=== PATIENT | male | born 1950 | race Caucasian/White ===

== ENCOUNTER 2017-03-04 06:19 | Inpatient (IN) | payer OTHER, MEDICAID ==
--- NOTE | 2017-03-04 06:34 | EDPHY ---
H & P HPI/ROS: HPI CHIEF COMPLAINT: Shortness of breath, generalized weakness HISTORY OF PRESENT ILLNESS: This patient is 66-year-old male, presents emergency room by EMS for shortness of breath. The patient resides at [facility]. 911 was called from them as he has had progressively shortness of breath over the last 2 days. Patient arrives on a non-rebreather mask with tachypnea, and respiratory distress. He had 80s O2 sat at 10 L on a mask. He has been placed on a 15 L mask at this time. He was initially ER room 5. I have moved him to ER room 2 to be placed on full face BiPAP on full monitor. Upon arrival it is noted that the patient is tachypneic in the 30s. Past Medical History: Schizophrenia, hypertension, hyponatremia, hypokalemia, GERD, polydipsia Past Surgical History: No surgical history. Social History: Resides at [facility]. Family History: Noncontributory. ROS REVIEW OF SYSTEMS: A comprehensive 10 point review of systems is otherwise negative aside from elements mentioned in the history of present illness. Exam Constitutional respiratory distress, tachypneic, triage nursing summary reviewed, vital signs reviewed, awake/alert. Eyes normal conjunctivae and sclera, EOMI, PERRLA. HENT normal inspection, atraumatic, moist mucus membranes, no epistaxis, neck supple/ no meningismus, no raccoon eyes. Respiratory decreased breath sounds bilaterally. Little air movement. Slight wheezing. Cardiovascular rate normal, regular rhythm, no murmur, no edema, distal pulses normal. Gastrointestinal soft, non-tender, no rebound, no guarding, normal bowel sounds, no distension, no pulsatile mass. Genitourinary no CVA tenderness. Musculoskeletal bilateral lower extremity edema with redness, no midline vertebral tenderness, full range of motion, no calf swelling, no tenderness of extremities, no meningismus, good pulses, neurovascularly intact. Skin pink, warm, & dry, no rash, skin atraumatic. Neurologic awake, alert and oriented x 3, AAOx3, moves all 4 extremities equally, motor intact, sensory intact, CN II-XII intact, normal cerebellar, normal vision, normal speech. Psychiatric normal mood/affect. Heme/Lymph/Immune no lymphadenopathy. 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 Re-evaluate. Re-evaluation: EKG interpretation by me on record in [employer] system. Impression time of EKG 6:54 a.m., sinus rhythm rate of 61. Nonspecific intraventricular conduction delay. No ST elevation. ED x-ray chest one view this is reviewed by myself. This shows cardiomegaly and bilateral pulmonary edema. Pleural effusion left side. 0656: At this time this patient is on full face BiPAP is getting in-line DuoNeb breathing. His vital signs are stable. I have ordered him IV Lasix. I do feel that the patient is volume overloaded with decompensated heart failure. 0700: Spoke with the hospitalist service Dr. Parr agrees to admit this patient. I have ordered this patient 40 mg IV Lasix. Patient remains on full face BiPAP more comfortable. Vital signs are stable. Chest x-ray reviewed shows cardiomegaly. Additionally he does have an acute kidney injury with elevated creatinine and BUN. I do not feel that he is hypovolemic he appears volume overloaded with peripheral all lower extremity pitting edema and pulmonary edema on x-ray. Critical Care: Total Critical Care Time Spent Managing this Patient: 65Minutes. This time was spent Exclusively with this patient. This Care was exclusive of procedures. The Organ System/life at risk was pulmonary This Patient was in Critical Condition because decompensated heart failure. Patient minute to the ICU for decompensated heart failure hypoxia. Source: Patient, EMS Constitutional: Initial Vital Signs O2 Sat (%) 93 03/04/17 06:28 O2 Delivery Mode Non-Rebreather Mask O2 (L/minute) 15 Allergies/Adverse Reactions: No Known Allergies Allergy (Unverified 08/12/09 14:51) Home Medications: Medication Instructions Recorded Diltiazem HCl [Taztia Xt] 360 mg PO DAILY 08/12/09 ARIPIPRAZOLE [Abilify 20mg] 20 mg PO DAILY 03/04/17 Acetaminophen [Tylenol 325mg (*)] 650 mg PO Q6H PRN 03/04/17 Ascorbic Acid [Vitamin C 500 mg 500 mg PO DAILY 03/04/17 (*)] Bisacodyl [Dulcolax] 10 mg RC DAILY PRN 03/04/17 Fluticasone Nasal [Flonase Nasal 1 sprays NASAL DAILY 03/04/17 Frederick (RX)] Furosemide [Lasix 40 MG (*)] 40 mg PO DAILY 03/04/17 Magnesium Hydroxide/Al Hydrox 20 ml PO Q4H PRN 03/04/17 [Mylanta Liquid] Metoprolol Succinate Xr [Toprol Xl 25 mg PO DAILY 03/04/17 25 mg (*)] Multivitamins [Multivitamin (*)] 1 each PO DAILY 03/04/17 Perphenazine [Trilafon 8mg (*)] 8 mg PO BID 03/04/17 Polyethylene Glycol 3350 [Miralax 17 gm PO DAILY 03/04/17 17 gm (*)] Potassium Chloride [Klor-Con M20] 20 meq PO DAILY 03/04/17 Sennosides/Docusate Sodium 2 each PO BID 03/04/17 [Senokot-S (OTC)] Sodium Chloride [Saline Nose Frederick] 1 spray NS Q4H PRN 03/04/17 Tamsulosin HCl [Flomax 0.4 MG (*)] 0.4 mg PO DAILY 03/04/17 clonIDINE [Catapres (*)] 0.2 mg PO BID 03/04/17 traMADol [Ultram 50 mg (*)] 50 mg PO QID 03/04/17 Medical Decision Making - Data Points Laboratory Results: Laboratory Results 03/04/17 06:00 03/04/17 06:00 Medications Given: Acetaminophen (Tylenol) 650 mg PO Q4HRS PRN PRN Reason: Pain, Mild/Fever, Can Take PO Stop: 08/31/17 07:59 Last Admin: 03/04/17 18:34 Dose: 650 mg Aripiprazole (Abilify) 20 mg PO DAILY JENNIE Stop: 08/31/17 13:29 Last Admin: 03/04/17 13:42 Dose: 20 mg Clonidine (Catapres) 0.2 mg PO BID JENNIE Stop: 08/31/17 13:44 Last Admin: 03/04/17 15:15 Dose: 0.2 mg Diltiazem HCl (Cardizem Er Q24hr) 360 mg PO DAILY JENNIE Stop: 08/31/17 13:44 Last Admin: 03/04/17 13:56 Dose: 360 mg Furosemide (Lasix Injection) 40 mg IVP BID@0900,1500 [facility] Stop: 08/31/17 14:59 Last Admin: 03/04/17 15:14 Dose: 40 mg Heparin Sodium (Porcine) (Heparin Sc Injection) 5,000 unit SC Q8 JENNIE Stop: 08/31/17 13:59 Last Admin: 03/04/17 15:14 Dose: 5,000 unit Azithromycin 500 mg/ Dextrose 255 mls @ 255 mls/hr IV DAILY JENNIE PRN Reason: Protocol Stop: 04/03/17 10:59 Last Admin: 03/04/17 11:00 Dose: 255 mls Metoprolol Succinate (Toprol Xl) 25 mg PO DAILY JENNIE Stop: 08/31/17 13:44 Last Admin: 03/04/17 13:56 Dose: 25 mg Perphenazine (Trilafon) 8 mg PO BID JENNIE Stop: 08/31/17 20:59 Last Admin: 03/04/17 19:38 Dose: 8 mg Senna/Docusate Sodium (Senokot-S) 2 tab PO BID JENNIE Stop: 08/31/17 20:59 Last Admin: 03/04/17 22:18 Dose: Not Given Tramadol HCl (Ultram) 50 mg PO QID JENNIE Stop: 08/31/17 15:59 Last Admin: 03/04/17 16:27 Dose: 50 mg Discontinued Medications Albuterol/Ipratropium (Duoneb) 3 ml IH EDNOW ONE Stop: 03/04/17 06:36 Last Admin: 03/04/17 06:39 Dose: 3 ml Furosemide (Lasix Injection) 40 mg IVP EDNOW ONE Stop: 03/04/17 06:55 Last Admin: 03/04/17 06:57 Dose: 40 mg Furosemide (Lasix Injection) 40 mg IVP ONCE ONE Stop: 03/04/17 09:01 Last Admin: 03/04/17 09:34 Dose: 40 mg Cefepime HCl 2 gm/ Dextrose 100 mls @ 200 mls/hr IV Q8H JENNIE PRN Reason: Protocol Stop: 04/03/17 09:59 Last Admin: 03/04/17 09:59 Dose: 100 mls Vancomycin/Sodium Chloride (Vancomycin 1 Gm (Premix)) 250 mls @ 250 mls/hr IV ONCE ONE PRN Reason: Protocol Stop: 03/04/17 16:25 Last Admin: 03/04/17 16:26 Dose: 250 mls Departure - Departure Disposition: [facility] Inpatient Acute Clinical Impression: Respiratory distress, Hypoxia CHF (congestive heart failure) Qualifiers: Congestive heart failure type: unspecified congestive heart failure type Congestive heart failure chronicity: acute Qualified Code(s): I50.9 - Heart failure, unspecified Condition: Critical
[2017-03-04 06:35] LABS: PLATELET COUNT 207 10^3/uL (150-400)
[2017-03-04] MEDS ORDERED: IPRATROPIUM/ALBUTEROL 3 ML DEYVIAL IH ONE (06:35)
[2017-03-04 06:52] LABS: INR 0.97 (0.83-1.16); PROTIME(PATIENT) 13.1 SEC (12.0-15.0)
[2017-03-04] MEDS ORDERED: FUROSEMIDE 40 MG/4 ML VIAL IVP ONE ×2 (06:54→09:00)
[2017-03-04] MEDS ORDERED: ONDANSETRON 4 MG/2 ML VIAL IVP PRN (08:00)
--- NOTE | 2017-03-04 09:27 | CPEKG ---
Heart Rate: 61 RR Interval: 984 P-R Interval: 148 QRSD Interval: 114 QT Interval: 432 QTC Interval: 435 P Hartland: 61 QRS Hartland: 69 T Wave Hartland: 4 EKG Severity - ABNORMAL ECG - EKG Impression: SINUS RHYTHM EKG Impression: NONSPECIFIC INTRAVENTRICULAR CONDUCTION DELAY EKG Impression: BORDERLINE INFERIOR Q WAVES Electronically Signed By: Nicky Bonilla 04-Mar-2017 22:50:05
--- NOTE | 2017-03-04 09:40 | GCON ---
[f rep st] CONSULTATION [facility] MAGISTRATE CONSULTATION REASON FOR ADMISSION: Acute respiratory failure and likely congestive heart failure. HISTORY OF PRESENT ILLNESS: The patient is a 66-year-old white male with a past medical history of s chizophrenia, hypertension, gastroesophageal reflux disease, depression, anxiety, hyponatremia, hypok alemia. The patient resides at [facility]. He apparently over the last 48 hours had increasing kendra thlessness. He was brought to the emergency room, was markedly hypoxemic. Was placed on supplementa l oxygen at 15 L. He was subsequently started on BiPAP. He was eventually admitted to the intensive care unit. The patient is currently on BiPAP, unable to provide any history. The patient was admit cherise to the intensive care unit. Currently, he is resting comfortably on BiPAP. He states that his b reathlessness has improved. There was no chest pain, pleuritic-type chest pain, or angina equivalent . He denies any fever or night sweats. PAST MEDICAL HISTORY: Again, significant for schizophrenia, hypertension, hyponatremia, gastroesopha geal reflux disease, polydipsia. ALLERGIES: No known allergies to medications. SOCIAL HISTORY: No history of tobacco use. No history of alcohol use. Again, he resides at [facility]. FAMILY HISTORY: Noncontributory. HOME MEDICATIONS: Abilify, Ativan, diltiazem, Colace, Haldol, lisinopril, Percocet, and Trilafon. PHYSICAL EXAMINATION: VITAL SIGNS: Blood pressure is 138/59. The pulse is 82, respirations 16. Te mperature is 36.6, oxygen saturation 96% on BiPAP at 70%. GENERAL: He is a moderately overweight, e lderly white male who is resting comfortably on BiPAP. HEENT: Eyes are PERRLA, EOMI. Throat exam i s deferred. NECK: Supple. There is no cervical adenopathy. HEART: Regular rate and rhythm with a 2/6 systolic murmur at the left sternal border without radiation. LUNGS: Show diminished breath harvey nds with bibasilar crackles. There is no wheeze. ABDOMEN: Soft. Nontender. Bowel sounds are pres ent. EXTREMITIES: Show significant lower extremity edema with ulcers present. LABORATORY DATA: White count is 12.4, hemoglobin 12, hematocrit 37, platelet count 207. INR is 0.97 . Sodium 133, potassium 5.2, chloride 103. CO2 is 20. BUN is 48. Creatinine is 2.2. Glucose is 1 10. Troponin is negative. BNP is elevated at 1640. TSH is high at 5.8. Urinalysis: PH of 6, spec ific gravity 1.010, positive nitrite, 3+ leukocyte esterase, 4+ bacteria. Arterial blood gas: PH is 7.27, pCO2 43, PO2 75, bicarb of 21, oxygen saturation 93%. This is on BiPAP at 60%. IMPRESSION: 1. Congestive heart failure with fluid overload. 2. Acute respiratory failure secondary to above. 3. Possible pneumonia. 4. Combined metabolic and mild respiratory acidosis. 5. Possible sepsis. 6. Acute renal failure. 7. Possible urinary tract infection. RECOMMENDATIONS: 1. Agree with admission to the intensive care unit. 2. Will continue BiPAP for now. 3. Will recheck an ABG. 4. Will start sepsis protocol. 5. Will treat for possible pneumonia. 6. Aggressive diuresis. 7. Will check an echocardiogram. 8. Will obtain blood cultures and sputum culture. 9. Will check a urine culture. 10. Will establish code status. /[id number]/MODL
[2017-03-04] MEDS ORDERED: CEFEPIME HCL 2 GM in D5W 100 ML IV SCH ×3 (10:00→21:00)
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
[2017-03-04] MEDS ORDERED: AZITHROMYCIN IV 500 MG in D5W 250 ML IV SCH (11:00)
[2017-03-04] MEDS: AZITHROMYCIN IV 500 MG in D5W 250 ML IV SCH (11:00)
--- NOTE | 2017-03-04 12:22 | WOCRNPDOC ---
WOCRAlfred Advanced Assessment Note - Skin Integrity Problem, Advanced Assess Left Anterior Lower Leg Venous Stasis Ulcer Dressing Type: Open to Air Exudate Amount: None Sofia Wound Tissue: Hemosiderin Staining, Venous Dermatitis, Xerotic, Scarred Wound Bed Constitution: Red/[place] - Non Granular Tissue Wound Edges: Well Defined Site Odor: None Site Measurement - Head-to-Toe Length X Width X Depth (cm): 2x3x0.1 Skin Integrity Problem Comment: May have originated from a traumatic injury but there is venous stasis changes to patient's bilateral legs. Treatment of the wound will be the same at this time. Wound is not draining much. Atractain cream will benefit patient. Wound care will sign off. Left Thigh Dressing Type: Open to Air Wound Bed Constitution: Scab Wound Edges: Epithelizing Site Measurement - Head-to-Toe Length X Width X Depth (cm): 0.6x0.6xscab/eschar Skin Integrity Problem Comment: Old wound with signs of epithelization up to central eschar. Unknown etiology. Will moisten with wound gel and treat as an open wound. Right Thigh Dressing Type: Open to Air Site Measurement - Head-to-Toe Length X Width X Depth (cm): 0.4x0.4xscab Skin Integrity Problem Comment: Old wound with signs of epithelization up to central scab. Unknown etiology. Will moisten with wound gel and treat as an open wound. Pannus Dressing Type: Open to Air Skin Integrity Problem Comment: Moisture associated dermatitis. Treat with Calazime. Diamante LÓPEZ in room for assessment. Plan of care discussed.
[2017-03-04] MEDS ORDERED: SODIUM CL NASAL 45 ML BTL NS PRN (13:09)
[2017-03-04] MEDS ORDERED: ARIPIPRAZOLE 20 MG PO SCH (13:15)
--- NOTE | 2017-03-04 13:29 | ECHO ---
[email or web address] [address] Main: [phone] Fax: Transthoracic Echocardiogram Name: BRANDI YOUNG MR#: [id number] Study Date: 03/04/2017 Study Time: 10:58 AM Date of : 1950 Age: 66 year(s) Height: 177.8 cm (70 in.) Weight: 99.79 kg (220 lb.) BSA: 2.17 m2 Gender: Male Examination: Echo Indication: CHF Image Quality: Adequate Contrast: Requested by: Jeremiah Horan BP: 155 mmHg/49 mmHg Heart Rate: Rhythm: Normal sinus rhythm Indication: CHF Procedure Staff Shipsmith: Cydney Christie Physician: Mayur Howard Requesting Provider: Conclusions: Preserved left ventricular systolic function with ejection fraction of 60%. Concentric left ventricular hypertrophy. Mild mitral regurgitation with a posteriorly directed jet.Mild tricuspid regurgitation with a right ventricular systolic pressure of 58 mm of mercury. Right ventricular systolic function is preserved. Tissue Doppler does not suggest volume overload. Measurements: Chambers Valvular Assessment AV/MV Valvular Assessment TV/PV Normal Normal Normal Name Value Range Name Value Range Name Value Range Ao Emily (MM): 3.0 cm (2.2 cm-3.7 AV Vmax: 1.60 m/s (1 m/s-1.7 TR Vmax: 3.48 mm/s ( - ) cm) m/s) TR PGmax: 48 mmHg ( - ) IVSd (2D): 1.2 cm (0.6 cm-1.1 AV maxP mmHg ( - ) syst. PAP: 58 mmHg ( - ) cm) LVOT Vmax: 1.22 m/s (0.7 m/s-1.1 PV Vmax: 1.04 m/s (0.6 m/s-0.9 LVDd (2D): 4.1 cm (4.2 cm-5.9 m/s) m/s) cm) MV E Vmax: 1.21 m/s ( - ) PV PGmax: 4 mmHg ( - ) LVDs (2D): 2.9 cm (2.1 cm-4 MV A Vmax: 0.91 m/s ( - ) cm) MV E/A: 1.33 ( - ) LVPWd (2D): 1.2 cm (0.6 cm-1 cm) LVEF (BP): 59 % (>=55 %) RVDd(2D): 3.2 cm (1.9 cm-3.8 cmmm) Continued Measurements: Chambers Valvular Assessment AV/MV Valvular Assessment TV/PV Name Value Name Value Name Value LADs Lon.3 cm MV DecTime: 299 m/s CVP (est.): 10 mmHg LA Area: 28.0 cm2 MV E' Septal: 0.08 m/s LA Volume: 84 ml MV E/E' Septal: 14.60 Patient: BRANDI YOUNG Study Date: 03/04/2017 Page 1 of 2 10:58 AM LA Volume Index: 38.7 ml/m2 MV E/E' Lateral: 12.40 TAPSE: 3.1 cm RA Area: 19.0 cm2 Additional Vessels Name Value Ao Ascendin.1 cm Findings: Left Ventricle: Normal size left ventricle. Mild concentric LV hypertrophy. Normal global systolic LV function. EF is 59 %. No regional wall motion abnormality. Normal diastolic LV function. Right Ventricle: Normal size right ventricle. Normal RV function. Left Atrium: The left atrium is mildly dilated. Right Atrium: The right atrium is mildly dilated. Chiari's network discernible in right atrium. Mitral Valve: The mitral valve is normal in appearance and function. There is mild thickening of the mitral valve leaflets. Mild mitral valve regurgitation is present. No mitral stenosis is present. Aortic Valve: The aortic valve is normal in appearance and function. There is no aortic valve regurgitation. No aortic valve stenosis is present. Tricuspid Valve: The tricuspid valve is normal in appearance and function. Mild tricuspid regurgitation is present. Right ventricular systolic pressure measures 58mmHg. The pulmonary artery pressure is moderately increased. Pulmonic Valve: The pulmonic valve is normal in appearance and function. There is no pulmonic regurgitation seen. Aorta: The aorta is normal. Normal size aortic root measuring 3.0 cm. Normal size ascending aorta measuring 3.1 cm. IVC: The IVC is dilated. Pericardium: Trivial pericardial effusion. (No Signature Object) Patient: BRANDI YOUNG Study Date: 03/04/2017 Page 2 of 2 10:58 AM [id number]
[2017-03-04] MEDS: ARIPiprazole 10 MG TAB PO SCH (13:42)
[2017-03-04] MEDS: ACETAMINOPHEN 325 MG TAB PO PRN ×2 (13:42→18:34)
[2017-03-04] MEDS: DILTIAZEM CD 180 MG CAP PO SCH (13:56)
[2017-03-04] MEDS: METOPROLOL SUCCINATE XR 25 MG TAB PO SCH (13:56)
--- NOTE | 2017-03-04 14:53 | ASMTCMCOM ---
CM Note CM Note Notes: Patient admitted for respiratory failure, most likely r/t decompensated heart failure. He's being treated for that, as well as presumed CA PNA. He lives at [facility] and has a PMHx significant for schizophrenia. I called his brother Raul Warren ([phone]) to inform him of patient's hospitalization; Raul says he will come to see patient tomorrow. IT would be zepeda to have someone speak with Raul when he is here about patient's MOST form/MDPOA since patient may not be capable of making his own decisions. CM will follow and assist with any discharge needs. Date Signed: 03/04/2017 02:53 PM Electronically Signed By:Jennifer Lim RN
[2017-03-04] MEDS ORDERED: FUROSEMIDE 40 MG/4 ML VIAL IVP SCH (15:00)
[2017-03-04] MEDS: HEPARIN 5,000 UNIT/0.5 ML SYR SC SCH ×2 (15:14→22:41)
[2017-03-04] MEDS ORDERED: VANCOMYCIN HCL/NORMAL SALINE 250 ML IV ONE (15:26)
[2017-03-04] MEDS: traMADol 50 MG TAB PO SCH ×2 (16:27→22:41)
[2017-03-04] MEDS: PERPHENAZINE 8 MG TAB PO SCH (19:38)
[2017-03-04] MEDS: SENNOSIDES/DOCUSATE SODIUM TAB PO SCH (22:18)
[2017-03-04] MEDS: CEFEPIME HCL 2 GM in NS 100 ML IV SCH (22:41)
[2017-03-05 04:49] LABS: PLATELET COUNT 224 10^3/uL (150-400)
[2017-03-05] MEDS: traMADol 50 MG TAB PO SCH ×4 (06:40→21:00)
[2017-03-05] MEDS: HEPARIN 5,000 UNIT/0.5 ML SYR SC SCH ×2 (07:07→12:39)
--- NOTE | 2017-03-05 08:45 | HOSPPROG ---
Hospitalist Progress Note Assessment/Plan: # acute hypoxic resp failure - d/t CHF, pneumonia # pneumonia, health care associated - cont broad spectrum abx (azith, vanc, cefepime), follow sputum cx, blood cx # volume overload - normal EF and no DD on echo, valves ok; may be related to CKD - cont aggressive diuresis (decrease lasix today), follow lytes, SCr, weights , IO - net neg 3.5L # CKD - at recent baseline (last outpatient SCr 2.1) - follow closely # pulm htn - RVSP 58mmHg # UTI with hematuria - cont cefepime, follow UCx # hyperkalemia - resolved # schizophrenia - cont abilify, trilafon # hypertension - cont clonidine, dilt, metop Subjective: feels much better today; still SOB though; eating Objective: Vital Signs Temp Pulse Resp BP Pulse Ox 36.7 C 64 25 H 141/58 H 95 03/05/17 08:00 03/05/17 08:00 03/05/17 08:00 03/05/17 08:00 03/05/17 08:00 Microbiology 03/04/17 09:30 Respiratory Panel (PCR) - Final Nasal, Sinus - [place] Viral Transport No Organism Detected 03/04/17 09:30 - Final Sputum, Expectorated Laboratory Results 03/05/17 04:30 03/05/17 04:30 03/04/17 03/05/17 03/06/17 05:59 05:59 05:59 Intake Total 3800 Output Total 7550 275 Balance -3750 -275 PT 13.1 SEC (12.0-15.0) 03/04/17 06:00 INR 0.97 (0.83-1.16) 03/04/17 06:00 - Physical Exam Constitutional: chronically ill appearing Cardiovascular: regular rate and rhythym, no murmur, rub, or gallop Respiratory: inspiratory crackles (bilat bases, faint), respiratory distress ( mod), No expiratory wheeze, No bronchial breath sounds Gastrointestinal: normoactive bowel sounds, soft, non-tender abdomen, no palpable masses ICD10 Worksheet Patient Problems: Problems Problem Status Onset Respiratory distress Acute CHF (congestive heart failure) Acute Hypoxia Acute
[2017-03-05] MEDS ORDERED: DILTIAZEM HCL 360 MG PO SCH (09:00)
[2017-03-05] MEDS ORDERED: METOPROLOL SUCCINATE XR 25 MG TAB PO SCH (09:00)
[2017-03-05] MEDS ORDERED: ARIPiprazole 10 MG TAB PO SCH (09:00)
[2017-03-05] MEDS ORDERED: DILTIAZEM CD 180 MG CAP PO SCH (09:00)
[2017-03-05] MEDS: CEFEPIME HCL 2 GM in NS 100 ML IV SCH ×2 (09:38→21:00)
[2017-03-05] MEDS: AZITHROMYCIN IV 500 MG in D5W 250 ML IV SCH (09:38)
[2017-03-05] MEDS: METOPROLOL SUCCINATE XR 25 MG TAB PO SCH (09:39)
[2017-03-05] MEDS: TAMSULOSIN HCL 0.4 MG CAP PO SCH (09:40)
[2017-03-05] MEDS: PERPHENAZINE 8 MG TAB PO SCH ×2 (09:40→21:00)
[2017-03-05] MEDS: FUROSEMIDE 40 MG/4 ML VIAL IVP SCH ×2 (09:40→14:55)
[2017-03-05] MEDS: SENNOSIDES/DOCUSATE SODIUM TAB PO SCH ×2 (09:40→21:01)
[2017-03-05] MEDS: POTASSIUM CL 20 MEQ TAB PO SCH (09:40)
[2017-03-05] MEDS: FLUTICASONE NASAL 120 SPRAYS/16 GM MDI EACHNARE SCH (09:40)
[2017-03-05] MEDS: ARIPiprazole 10 MG TAB PO SCH (10:44)
[2017-03-05] MEDS: DILTIAZEM CD 180 MG CAP PO SCH ×2 (11:33)
--- NOTE | 2017-03-05 12:40 | PDMN ---
Medical Necessity Medical necessity: Pt meets IP criteria per MD; est los >2 mn for eval/tx of respiratory failure, most likely r/t decompensated heart failure, possible pneumonia, acute renal failure, hyperkalemia, combined respiratory & metabolic acidosis, pyuria; pt quite sick & on BiPAP, admit to ICU for further workup/ monitoring, IV abx, aggressive IV diuresis & cultures; hx schizophrenia, HTN, polydipsia; per H&P & order 03/04/17
[2017-03-05] MEDS ORDERED: ALTEPLASE 2 MG VIAL IVP PRN (13:09)
--- NOTE | 2017-03-05 13:33 | PDINTPN ---
Graining Press Operator Progress Note Assessment/Plan: Assessment/plan: 66 M with history of schizophrenia and lives at [place], admitted 03/04/17 with significant respiratory distress thought to be CHF, PNA or both. Treated with Bipap, broad spectrum antibiotics and diuresis with substantial improvement in status. * Acute respiratory failure with hypoxemia- clearly elements of both PNA and volume overload with elevated BNP, but EF 60% and no diastolic dysfunction on echo. He reports significant snoring and is obese so may also have DEMARCUS, which could cause non-cardiogenic pulmonary edema. Continue lasix for today since O2 requirement still modestly high. * PNA- cultures negative to date, but rise in wbc warrants continued abx. * UTI- positive UA and culture now with E. coli. Continue to monitor. Cefepime should be adequate * DEMARCUS- will need outpatient sleep study. Would use bipap qhs for now. Subjective: Feels much better today and slept well with Bipap overnight. Remains on oxymask at 12 lpm Objective: Vital Signs Temp Pulse Resp BP Pulse Ox 37.5 C 63 7 L 145/46 H 93 03/05/17 12:00 03/05/17 12:00 03/05/17 12:00 03/05/17 12:00 03/05/17 12:00 Microbiology 03/04/17 09:30 - Final Sputum, Expectorated 03/04/17 09:30 Respiratory Panel (PCR) - Final Nasal, Sinus - [place] Viral Transport No Organism Detected Laboratory Results 03/05/17 04:30 03/05/17 04:30 03/04/17 03/05/17 03/06/17 05:59 05:59 05:59 Intake Total 3800 Output Total 7550 700 Balance -3750 -700 PT 13.1 SEC (12.0-15.0) 03/04/17 06:00 INR 0.97 (0.83-1.16) 03/04/17 06:00 Physical Exam - Physical Exam General Appearance: WD/WN, alert, obese EENT: PERRL/EOMI Neck: supple Respiratory: lungs clear, normal breath sounds, decreased breath sounds, No respiratory distress Cardiac/Chest: regular rate, rhythm, No edema Abdomen: non-tender, soft, No distended Skin: normal color, warm/dry Lymphatic: no adenopathy Extremities: No pedal edema Neuro/Psych: alert, normal mood/affect, oriented x 3 ICD10 Worksheet Patient Problems: Problems Problem Status Onset CHF (congestive heart failure) Acute Hypoxia Acute Respiratory distress Acute
[2017-03-06] MEDS: traMADol 50 MG TAB PO SCH ×4 (05:40→21:30)
[2017-03-06 06:08] LABS: PLATELET COUNT 214 10^3/uL (150-400)
[2017-03-06] MEDS: POTASSIUM CL 20 MEQ TAB PO SCH (07:36)
[2017-03-06] MEDS: FLUTICASONE NASAL 120 SPRAYS/16 GM MDI EACHNARE SCH (08:33)
[2017-03-06] MEDS: PERPHENAZINE 8 MG TAB PO SCH ×2 (08:33→21:30)
[2017-03-06] MEDS: TAMSULOSIN HCL 0.4 MG CAP PO SCH (08:33)
[2017-03-06] MEDS: SENNOSIDES/DOCUSATE SODIUM TAB PO SCH ×2 (08:33→21:31)
[2017-03-06] MEDS: METOPROLOL SUCCINATE XR 25 MG TAB PO SCH (08:34)
[2017-03-06] MEDS: DILTIAZEM CD 180 MG CAP PO SCH (08:34)
[2017-03-06] MEDS: ARIPiprazole 10 MG TAB PO SCH (08:35)
[2017-03-06] MEDS: AZITHROMYCIN IV 500 MG in D5W 250 ML IV SCH (08:37)
[2017-03-06] MEDS: CEFEPIME HCL 2 GM in NS 100 ML IV SCH ×2 (08:37→21:29)
--- NOTE | 2017-03-06 09:17 | PDINTPN ---
Psychologist Experimental Progress Note Assessment/Plan: Assessment/plan: 66 M with history of schizophrenia and lives at [place], admitted 03/04/17 with significant respiratory distress thought to be CHF, PNA or both. Treated with Bipap, broad spectrum antibiotics and diuresis with substantial improvement in status. * Acute respiratory failure with hypoxemia- clearly elements of both PNA and volume overload with elevated BNP, but EF 60% and no diastolic dysfunction on echo. He reports significant snoring and is obese so may also have DEMARCUS, which could cause non-cardiogenic pulmonary edema. Slight bump in creatinine so held lasix this am (i/o net negative 2100). Will discuss with hospitalist. Needs IS * PNA- Improved wbc today on cefepime/zithro. Scx without growth. * UTI- positive UA and culture now with E. coli. Continue to monitor. Cefepime should be adequate * DEMARCUS- will need outpatient sleep study. Would use bipap qhs for now as tolerated 03/06/17 09:07 Subjective: stable overnight. Not sure he used bipap, but he said he did Objective: Vital Signs Temp Pulse Resp BP Pulse Ox 36.7 C 64 16 165/81 H 92 03/06/17 07:44 03/06/17 07:44 03/06/17 07:44 03/06/17 07:44 03/06/17 07:44 Microbiology 03/04/17 09:30 - Final Sputum, Expectorated Laboratory Results 03/06/17 05:50 03/06/17 05:50 03/05/17 03/06/17 03/07/17 05:59 05:59 05:59 Intake Total 3800 2544 Output Total 7550 4700 Balance -3750 -2156 PT 13.1 SEC (12.0-15.0) 03/04/17 06:00 INR 0.97 (0.83-1.16) 03/04/17 06:00 Physical Exam - Physical Exam General Appearance: WD/WN, alert, no apparent distress, obese EENT: PERRL/EOMI Neck: supple Respiratory: lungs clear, decreased breath sounds, No respiratory distress, No accessory muscle use Cardiac/Chest: regular rate, rhythm, No edema Abdomen: non-tender, soft, No distended Skin: normal color, warm/dry Lymphatic: no adenopathy Extremities: No pedal edema Neuro/Psych: alert, normal mood/affect, oriented x 3 ICD10 Worksheet Patient Problems: Problems Problem Status Onset CHF (congestive heart failure) Acute Hypoxia Acute Respiratory distress Acute
[2017-03-06] MEDS ORDERED: FUROSEMIDE 20 MG/2 ML VIAL IVP ONE (11:45)
--- NOTE | 2017-03-06 11:58 | HOSPPROG ---
Hospitalist Progress Note Assessment/Plan: # acute hypoxic resp failure - d/t pulmonary edema, pneumonia - cont diuretics, abx, check CXR tomorrow am # pneumonia, health care associated - cont therapy with cefepime alone today and follow # volume overload - normal EF and no DD on echo, valves ok; may be related to CKD, DEMARCUS - will give one dose of lasix today - net neg 5.5L # CKD - at recent baseline (last outpatient SCr 2.1) - follow closely with diuresis # pulm htn - RVSP 58mmHg # UTI with hematuria (resolved), e.coli in urine - cont cefepime - hold SQH until tonight, then restart - hope to dc diaz tomorrow # hyperkalemia - resolved # schizophrenia - cont abilify, trilafon # hypertension - cont clonidine, dilt, metop Subjective: states he feels much better, breathing feels normal Objective: Vital Signs Temp Pulse Resp BP Pulse Ox 36.7 C 64 16 165/81 H 92 03/06/17 07:44 03/06/17 07:44 03/06/17 07:44 03/06/17 07:44 03/06/17 07:44 Microbiology 03/04/17 09:30 - Final Sputum, Expectorated Sputum Culture - Final Laboratory Results 03/06/17 05:50 03/06/17 05:50 03/05/17 03/06/17 03/07/17 05:59 05:59 05:59 Intake Total 3800 2544 Output Total 7550 4700 Balance -3750 -2156 PT 13.1 SEC (12.0-15.0) 03/04/17 06:00 INR 0.97 (0.83-1.16) 03/04/17 06:00 CXR personally reviewed discussed with Dr Arevalo and team on ICU rounds - Physical Exam Constitutional: no apparent distress, appears nourished Cardiovascular: regular rate and rhythym, no murmur, rub, or gallop Respiratory: no respiratory distress, no rales or rhonchi, clear to auscultation Gastrointestinal: normoactive bowel sounds, soft, non-tender abdomen, no palpable masses ICD10 Worksheet Patient Problems: Problems Problem Status Onset Respiratory distress Acute CHF (congestive heart failure) Acute Hypoxia Acute
[2017-03-06] MEDS: HEPARIN 5,000 UNIT/0.5 ML SYR SC SCH (21:31)
[2017-03-07 05:12] LABS: PLATELET COUNT 197 10^3/uL (150-400)
[2017-03-07] MEDS: traMADol 50 MG TAB PO SCH ×4 (05:55→20:05)
[2017-03-07] MEDS: HEPARIN 5,000 UNIT/0.5 ML SYR SC SCH ×3 (05:55→23:25)
[2017-03-07] MEDS: DILTIAZEM CD 180 MG CAP PO SCH (08:09)
[2017-03-07] MEDS: METOPROLOL SUCCINATE XR 25 MG TAB PO SCH (08:09)
[2017-03-07] MEDS: ARIPiprazole 10 MG TAB PO SCH (08:09)
[2017-03-07] MEDS: PERPHENAZINE 8 MG TAB PO SCH ×2 (08:09→20:05)
[2017-03-07] MEDS: TAMSULOSIN HCL 0.4 MG CAP PO SCH (08:09)
[2017-03-07] MEDS: SENNOSIDES/DOCUSATE SODIUM TAB PO SCH ×2 (08:09→17:34)
[2017-03-07] MEDS: FLUTICASONE NASAL 120 SPRAYS/16 GM MDI EACHNARE SCH (08:10)
[2017-03-07] MEDS: CEFEPIME HCL 2 GM in NS 100 ML IV SCH ×2 (08:13→20:02)
[2017-03-07] MEDS: POTASSIUM CL 20 MEQ TAB PO SCH (08:21)
--- NOTE | 2017-03-07 08:48 | HOSPPROG ---
Hospitalist Progress Note Assessment/Plan: # acute hypoxic resp failure - d/t pulmonary edema, pneumonia - cont diuretics, abx, IS, mobilize # pneumonia, health care associated - cont therapy with cefepime alone today and follow # volume overload - normal EF and no DD on echo, valves ok; may be related to CKD or DEMARCUS - cont lasix 20 iv daily - net neg 7.5L # CKD - at recent baseline (last outpatient SCr 2.1) - follow closely with diuresis # pulm htn - RVSP 58mmHg # UTI with hematuria (resolved), e.coli in urine - cont cefepime - dc diaz today # hyperkalemia - resolved # schizophrenia - cont abilify, trilafon # hypertension - cont clonidine, dilt, metop Subjective: breathing still feels ok despite being on high flow O2 Objective: Vital Signs Temp Pulse Resp BP Pulse Ox 35.9 C L 74 20 185/58 H 95 03/07/17 07:55 03/07/17 07:55 03/07/17 07:55 03/07/17 07:55 03/07/17 07:55 Microbiology 03/04/17 09:30 - Final Sputum, Expectorated Sputum Culture - Final Laboratory Results 03/07/17 04:55 03/07/17 04:55 03/06/17 03/07/17 03/08/17 05:59 05:59 05:59 Intake Total 2544 3270 Output Total 8890 5325 Balance -2155 -2054 PT 13.1 SEC (12.0-15.0) 03/04/17 06:00 INR 0.97 (0.83-1.16) 03/04/17 06:00 high risk on high flow O2 - Physical Exam Constitutional: chronically ill appearing Cardiovascular: regular rate and rhythym, no murmur, rub, or gallop Respiratory: no respiratory distress, no rales or rhonchi, inspiratory crackles (bilat bases) Gastrointestinal: normoactive bowel sounds, soft, non-tender abdomen, no palpable masses ICD10 Worksheet Patient Problems: Problems Problem Status Onset Respiratory distress Acute CHF (congestive heart failure) Acute Hypoxia Acute
[2017-03-07] MEDS: FUROSEMIDE 20 MG/2 ML VIAL IVP SCH (09:44)
--- NOTE | 2017-03-07 12:07 | PDINTPN ---
Bilingual Office Assistant Progress Note Assessment/Plan: Assessment/plan: 66 M with history of schizophrenia and lives at [place], admitted 03/04/17 with significant respiratory distress thought to be CHF, PNA or both. Treated with Bipap, broad spectrum antibiotics and diuresis with substantial improvement in status. * Acute respiratory failure with hypoxemia- clearly elements of both PNA and volume overload with elevated BNP, but EF 60% and no diastolic dysfunction on echo. He reports significant snoring and is obese so may also have DEMARCUS, which could cause non-cardiogenic pulmonary edema. Not much change today. Using IS sporadically and only using bipap maybe 2 hours nightly * PNA- stable on cefepime * UTI- positive UA and culture now with E. coli. Continue to monitor. Cefepime should be adequate * DEMARCUS- will need outpatient sleep study. Would use bipap qhs for now as tolerated Subjective: No events Objective: Vital Signs Temp Pulse Resp BP Pulse Ox 37.3 C 66 20 116/58 L 94 03/07/17 11:42 03/07/17 11:42 03/07/17 11:42 03/07/17 11:42 03/07/17 11:42 Microbiology 03/04/17 09:30 - Final Sputum, Expectorated Sputum Culture - Final Laboratory Results 03/07/17 04:55 03/07/17 04:55 03/06/17 03/07/17 03/08/17 05:59 05:59 05:59 Intake Total 2544 3270 Output Total 4700 5325 Balance -2156 -2055 PT 13.1 SEC (12.0-15.0) 03/04/17 06:00 INR 0.97 (0.83-1.16) 03/04/17 06:00 Physical Exam - Physical Exam General Appearance: WD/WN, alert, obese EENT: PERRL/EOMI Neck: supple Respiratory: lungs clear, normal breath sounds, decreased breath sounds, No respiratory distress, No accessory muscle use Cardiac/Chest: regular rate, rhythm, No edema Abdomen: non-tender, soft, No distended Skin: normal color, warm/dry, No cyanosis Lymphatic: no adenopathy Extremities: No pedal edema Neuro/Psych: alert, normal mood/affect, oriented x 3 ICD10 Worksheet Patient Problems: Problems Problem Status Onset CHF (congestive heart failure) Acute Hypoxia Acute Respiratory distress Acute
--- NOTE | 2017-03-07 12:57 | ASMTCMCOM ---
CM Note CM Note Notes: Patient From admitted with heart failure and PNA. He is on antibiotics and high flow oxygen. Normally chairbound at [facility] but SBA for transfers. Plan to return to [facility] when medically stable. Date Signed: 03/07/2017 12:57 PM Electronically Signed By:Alyse Dickerson RN
[2017-03-07] MEDS: ACETAMINOPHEN 325 MG TAB PO PRN (18:57)
[2017-03-08 04:37] LABS: PLATELET COUNT 193 10^3/uL (150-400)
[2017-03-08] MEDS: traMADol 50 MG TAB PO SCH ×4 (05:34→21:23)
[2017-03-08] MEDS: HEPARIN 5,000 UNIT/0.5 ML SYR SC SCH ×3 (05:41→21:24)
--- NOTE | 2017-03-08 08:54 | HOSPPROG ---
Hospitalist Progress Note Assessment/Plan: # acute hypoxic resp failure - d/t pulmonary edema, pneumonia - cont diuretics, abx, IS, mobilize # pneumonia, health care associated - change to rocephin as no resistant organisms found - WBC slowly trending down # volume overload - normal EF and no DD on echo, valves ok; may be related to CKD or DEMARCUS - cont lasix 20 iv daily - net neg 7.5L - no IO's or wt recorded today # CKD - at recent baseline (last outpatient SCr 2.1) - follow closely with diuresis # pulm htn - RVSP 58mmHg # UTI with hematuria (resolved), e.coli in urine - cont rocephin - diaz dc'd # hyperkalemia - resolved # schizophrenia - cont abilify, trilafon # hypertension - cont clonidine, dilt, metop Subjective: continues to feel well, but O2 needs still very high; eating well Objective: Vital Signs Temp Pulse Resp BP Pulse Ox 37.5 C 72 16 142/54 H 92 03/08/17 08:44 03/08/17 08:44 03/08/17 08:44 03/08/17 08:44 03/08/17 08:44 Laboratory Results 03/08/17 04:00 03/08/17 04:00 03/07/17 03/08/17 03/09/17 05:59 05:59 05:59 Intake Total 3270 2600 Output Total 5325 2600 Balance -2055 0 PT 13.1 SEC (12.0-15.0) 03/04/17 06:00 INR 0.97 (0.83-1.16) 03/04/17 06:[address] Arevalo high risk on moderate O2 requirements - Physical Exam Constitutional: no apparent distress, appears nourished Cardiovascular: regular rate and rhythym, no murmur, rub, or gallop, systolic murmur Respiratory: no respiratory distress, inspiratory crackles (bilat bases) Gastrointestinal: normoactive bowel sounds, soft, non-tender abdomen ICD10 Worksheet Patient Problems: Problems Problem Status Onset Respiratory distress Acute CHF (congestive heart failure) Acute Hypoxia Acute
--- NOTE | 2017-03-08 09:35 | PDINTPN ---
Parole Or Probation Officer Progress Note Assessment/Plan: Assessment/plan: 66 M with history of schizophrenia and lives at [place], admitted 03/04/17 with significant respiratory distress thought to be CHF, PNA or both. Treated with Bipap, broad spectrum antibiotics and diuresis with substantial improvement in status. * Acute respiratory failure with hypoxemia- clearly elements of both PNA and volume overload with elevated BNP, but EF 60% and no diastolic dysfunction on echo. He reports significant snoring and is obese so may also have DEMARCUS, which could cause non-cardiogenic pulmonary edema. Remains stable on 5-10 lpm oxymask. Encouraged IS, OOB, etc. Not using bipap, though that would help with O2. * PNA- stable on cefepime * UTI- positive UA and culture now with E. coli. Continue to monitor. Cefepime should be adequate * DEMARCUS- will need outpatient sleep study. Would use bipap qhs for now as tolerated * ok for floor 03/08/17 09:33 Subjective: Stable overnight, not using bipap as prescribed. Objective: Vital Signs Temp Pulse Resp BP Pulse Ox 37.5 C 72 16 142/54 H 92 03/08/17 08:44 03/08/17 08:44 03/08/17 08:44 03/08/17 08:44 03/08/17 08:44 Laboratory Results 03/08/17 04:00 03/08/17 04:00 03/07/17 03/08/17 03/09/17 05:59 05:59 05:59 Intake Total 3270 2600 Output Total 5325 2600 Balance -2055 0 PT 13.1 SEC (12.0-15.0) 03/04/17 06:00 INR 0.97 (0.83-1.16) 03/04/17 06:00 Physical Exam - Physical Exam General Appearance: alert, no apparent distress, obese EENT: PERRL/EOMI Neck: supple Respiratory: lungs clear, normal breath sounds, No respiratory distress, No accessory muscle use Cardiac/Chest: regular rate, rhythm, No edema Abdomen: non-tender, soft, No distended Skin: normal color, warm/dry, No cyanosis Lymphatic: no adenopathy Extremities: No pedal edema Neuro/Psych: alert, normal mood/affect, oriented x 3 ICD10 Worksheet Patient Problems: Problems Problem Status Onset CHF (congestive heart failure) Acute Hypoxia Acute Respiratory distress Acute
[2017-03-08] MEDS: SENNOSIDES/DOCUSATE SODIUM TAB PO SCH ×2 (09:54→21:57)
[2017-03-08] MEDS: PERPHENAZINE 8 MG TAB PO SCH ×2 (09:54→21:23)
[2017-03-08] MEDS: DILTIAZEM CD 180 MG CAP PO SCH (09:54)
[2017-03-08] MEDS: FUROSEMIDE 20 MG/2 ML VIAL IVP SCH (09:55)
[2017-03-08] MEDS: TAMSULOSIN HCL 0.4 MG CAP PO SCH (09:55)
[2017-03-08] MEDS: METOPROLOL SUCCINATE XR 25 MG TAB PO SCH (09:55)
[2017-03-08] MEDS: ARIPiprazole 10 MG TAB PO SCH (10:45)
[2017-03-08] MEDS: FLUTICASONE NASAL 120 SPRAYS/16 GM MDI EACHNARE SCH (12:31)
[2017-03-08] MEDS: oxyCODONE IR 5 MG TAB PO PRN (17:45)
[2017-03-09 04:32] LABS: PLATELET COUNT 188 10^3/uL (150-400)
[2017-03-09] MEDS: traMADol 50 MG TAB PO SCH ×4 (07:06→20:00)
[2017-03-09] MEDS: HEPARIN 5,000 UNIT/0.5 ML SYR SC SCH ×3 (07:06→22:22)
[2017-03-09] MEDS: TAMSULOSIN HCL 0.4 MG CAP PO SCH (08:40)
[2017-03-09] MEDS: METOPROLOL SUCCINATE XR 25 MG TAB PO SCH (08:40)
[2017-03-09] MEDS: PERPHENAZINE 8 MG TAB PO SCH ×2 (08:40→20:00)
[2017-03-09] MEDS: ARIPiprazole 10 MG TAB PO SCH (08:40)
[2017-03-09] MEDS: FUROSEMIDE 20 MG/2 ML VIAL IVP SCH ×2 (08:41→08:43)
[2017-03-09] MEDS: DILTIAZEM CD 180 MG CAP PO SCH (08:41)
[2017-03-09] MEDS: ACETAMINOPHEN 325 MG TAB PO PRN ×2 (08:43→17:29)
[2017-03-09] MEDS: FLUTICASONE NASAL 120 SPRAYS/16 GM MDI EACHNARE SCH (08:53)
[2017-03-09] MEDS: SENNOSIDES/DOCUSATE SODIUM TAB PO SCH ×2 (08:53→20:00)
--- NOTE | 2017-03-09 17:19 | HOSPPROG ---
Hospitalist Progress Note Assessment/Plan: 66 yo M who lives at [facility] acute hypoxic resp failure - d/t pulmonary edema, pneumonia - cont diuretics, abx, IS, mobilize pneumonia, health care associated - change to rocephin as no resistant organisms found - WBC slowly trending down volume overload - normal EF and no DD on echo, valves ok; may be related to CKD or DEMARCUS - cont lasix 20 iv daily - net neg 7.5L - no IO's or wt recorded today CKD - at recent baseline (last outpatient SCr 2.1) - follow closely with diuresis pulm htn - RVSP 58mmHg UTI with hematuria (resolved), e.coli in urine - cont rocephin - diaz dc'd hyperkalemia - resolved schizophrenia - cont abilify, trilafon hypertension - cont clonidine, dilt, metop Subjective: c/o leg pain. case d/w dr casey Objective: Vital Signs Temp Pulse Resp BP Pulse Ox 36.9 C 56 L 20 110/51 L 95 03/09/17 07:34 03/09/17 15:40 03/09/17 15:40 03/09/17 15:40 03/09/17 15:40 Microbiology 03/04/17 07:00 Blood Culture - Final Blood 03/04/17 08:27 Urine Culture - Final Urine,Catheterized Escherichia Coli Escherichia Coli#2 Laboratory Results 03/09/17 04:20 03/09/17 04:20 03/08/17 03/09/17 03/10/17 05:59 05:59 05:59 Intake Total 2600 2800 Output Total 2600 3350 Balance 0 -550 PT 13.1 SEC (12.0-15.0) 03/04/17 06:00 INR 0.97 (0.83-1.16) 03/04/17 06:00 - Physical Exam Constitutional: no apparent distress, appears nourished Eyes: PERRL, anicteric sclera Ears, Nose, Mouth, Throat: moist mucous membranes, hearing normal Cardiovascular: regular rate and rhythym, no murmur, rub, or gallop Respiratory: no respiratory distress, no rales or rhonchi Gastrointestinal: normoactive bowel sounds, soft, non-tender abdomen Genitourinary: no bladder fullness, No diaz in urethra Skin: warm, normal color Musculoskeletal: full muscle strength ICD10 Worksheet Patient Problems: Problems Problem Status Onset CHF (congestive heart failure) Acute Hypoxia Acute Respiratory distress Acute
[2017-03-09] MEDS: oxyCODONE IR 5 MG TAB PO PRN (22:21)
[2017-03-10] MEDS: oxyCODONE IR 5 MG TAB PO PRN ×3 (02:42→19:44)
[2017-03-10 04:18] LABS: PLATELET COUNT 172 10^3/uL (150-400)
[2017-03-10] MEDS: traMADol 50 MG TAB PO SCH ×4 (04:43→22:38)
[2017-03-10] MEDS: HEPARIN 5,000 UNIT/0.5 ML SYR SC SCH ×3 (05:16→22:39)
[2017-03-10] MEDS: TAMSULOSIN HCL 0.4 MG CAP PO SCH (08:58)
[2017-03-10] MEDS: ARIPiprazole 10 MG TAB PO SCH (08:58)
[2017-03-10] MEDS: METOPROLOL SUCCINATE XR 25 MG TAB PO SCH (08:58)
[2017-03-10] MEDS: SENNOSIDES/DOCUSATE SODIUM TAB PO SCH ×2 (08:58→22:38)
[2017-03-10] MEDS: DILTIAZEM CD 180 MG CAP PO SCH (08:58)
[2017-03-10] MEDS: PERPHENAZINE 8 MG TAB PO SCH ×2 (08:58→22:39)
[2017-03-10] MEDS: FUROSEMIDE 20 MG/2 ML VIAL IVP SCH (08:59)
[2017-03-10] MEDS: FLUTICASONE NASAL 120 SPRAYS/16 GM MDI EACHNARE SCH (08:59)
--- NOTE | 2017-03-10 10:33 | ASMTCMCOM ---
CM Note CM Note Notes: 03/10/2017 Case Management Note Faxed hospital notes and updates to [facility]. Case Management d/c poc: return to [place] where pt resides. Case Management to follow. Date Signed: 03/10/2017 10:33 AM Electronically Signed By:Sangita Smith RN
[2017-03-10] MEDS ORDERED: FUROSEMIDE 40 MG/4 ML VIAL IVP ONE (15:31)
--- NOTE | 2017-03-10 15:34 | HOSPPROG ---
Hospitalist Progress Note Assessment/Plan: 66 yo M who lives at [facility] acute hypoxic resp failure - d/t pulmonary edema, pneumonia - cont diuretics, abx, IS, mobilize give add'l dose of lasix today Leg pain: check doppler pneumonia, health care associated - change to rocephin as no resistant organisms found - WBC slowly trending down volume overload - normal EF and no DD on echo, valves ok; may be related to CKD or DEMARCUS - cont lasix 20 iv daily - net neg 7.5L - no IO's or wt recorded today CKD - at recent baseline (last outpatient SCr 2.1) - follow closely with diuresis pulm htn - RVSP 58mmHg UTI with hematuria (resolved), e.coli in urine - cont rocephin - diaz dc'd hyperkalemia - resolved schizophrenia - cont abilify, trilafon hypertension - cont clonidine, dilt, metop risk: high Objective: Vital Signs Temp Pulse Resp BP Pulse Ox 37.0 C 68 17 150/56 H 78 L 03/10/17 07:22 03/10/17 07:22 03/10/17 07:22 03/10/17 07:22 03/10/17 08:00 Laboratory Results 03/10/17 04:00 03/10/17 04:00 03/09/17 03/10/17 03/11/17 05:59 05:59 05:59 Intake Total 2800 2480 100 Output Total 3350 675 Balance -550 1805 100 PT 13.1 SEC (12.0-15.0) 03/04/17 06:00 INR 0.97 (0.83-1.16) 03/04/17 06:00 - Physical Exam Constitutional: no apparent distress, appears nourished Eyes: PERRL, anicteric sclera Ears, Nose, Mouth, Throat: moist mucous membranes, hearing normal Cardiovascular: regular rate and rhythym, no murmur, rub, or gallop Respiratory: no respiratory distress, no rales or rhonchi Gastrointestinal: normoactive bowel sounds, soft, non-tender abdomen Genitourinary: no bladder fullness, No diaz in urethra Skin: warm, normal color Musculoskeletal: full muscle strength Neurologic: AAOx3, sensation intact bilaterally Psychiatric: interacting appropriately ICD10 Worksheet Patient Problems: Problems Problem Status Onset CHF (congestive heart failure) Acute Hypoxia Acute Respiratory distress Acute
[2017-03-11] MEDS: oxyCODONE IR 5 MG TAB PO PRN ×4 (01:15→20:47)
[2017-03-11] MEDS: HEPARIN 5,000 UNIT/0.5 ML SYR SC SCH ×3 (06:26→20:48)
[2017-03-11] MEDS: traMADol 50 MG TAB PO SCH ×4 (06:26→19:32)
[2017-03-11 06:41] LABS: PLATELET COUNT 202 10^3/uL (150-400)
[2017-03-11] MEDS: DILTIAZEM CD 180 MG CAP PO SCH (09:03)
[2017-03-11] MEDS: TAMSULOSIN HCL 0.4 MG CAP PO SCH (09:03)
[2017-03-11] MEDS: METOPROLOL SUCCINATE XR 25 MG TAB PO SCH (09:03)
[2017-03-11] MEDS: SENNOSIDES/DOCUSATE SODIUM TAB PO SCH ×2 (09:03→20:47)
[2017-03-11] MEDS: FUROSEMIDE 20 MG/2 ML VIAL IVP SCH (09:03)
[2017-03-11] MEDS: ARIPiprazole 10 MG TAB PO SCH (09:03)
[2017-03-11] MEDS: PERPHENAZINE 8 MG TAB PO SCH ×2 (09:03→20:48)
[2017-03-11] MEDS: FLUTICASONE NASAL 120 SPRAYS/16 GM MDI EACHNARE SCH (09:04)
[2017-03-11] MEDS ORDERED: FUROSEMIDE 40 MG/4 ML VIAL IVP ONE (11:27)
--- NOTE | 2017-03-11 11:39 | HOSPPROG ---
Hospitalist Progress Note Assessment/Plan: 66 yo M who lives at [facility] acute hypoxic resp failure - d/t pulmonary edema, pneumonia cxr worse today from 03/07 check bnp increase lasix continue abx no wheezing so ok to hold nebs Leg pain: neg doppler pneumonia, health care associated - change to rocephin as no resistant organisms found - WBC slowly trending down volume overload - normal EF and no DD on echo, valves ok; may be related to CKD or DEMARCUS - cont lasix 20 iv daily - net neg 7.5L - no IO's or wt recorded today 03/11- as above, increase lasix CKD - at recent baseline (last outpatient SCr 2.1) - follow closely with diuresis pulm htn - RVSP 58mmHg UTI with hematuria (resolved), e.coli in urine - cont rocephin - emily dc'd hyperkalemia - resolved schizophrenia - cont abilify, trilafon hypertension - cont clonidine, dilt, metop risk: high Subjective: cxr w b/l pneumonia and cephalization of vessels c/w fluid overload (interp by me). d/w OT; requiring more assistance that when in ICU Objective: Vital Signs Temp Pulse Resp BP Pulse Ox 36.8 C 67 15 132/100 H 90 L 03/11/17 07:16 03/11/17 07:16 03/11/17 07:16 03/11/17 07:16 03/11/17 07:16 Laboratory Results 03/11/17 06:30 03/11/17 06:30 03/10/17 03/11/17 03/12/17 05:59 05:59 05:59 Intake Total 2480 530 Output Total 675 Balance 1805 530 PT 13.1 SEC (12.0-15.0) 03/04/17 06:00 INR 0.97 (0.83-1.16) 03/04/17 06:00 - Physical Exam Constitutional: no apparent distress, appears nourished Eyes: PERRL, anicteric sclera Ears, Nose, Mouth, Throat: moist mucous membranes, hearing normal Cardiovascular: regular rate and rhythym, no murmur, rub, or gallop Respiratory: no respiratory distress, other (R basilar crackles. good air movement. no wheeze) Gastrointestinal: normoactive bowel sounds, soft, non-tender abdomen Genitourinary: no bladder fullness, No diaz in urethra Skin: warm, normal color Musculoskeletal: full muscle strength, no muscle tenderness Neurologic: AAOx3, other (alert. conversant. oriented) Psychiatric: interacting appropriately Lymph, Heme, Immunologic: no cervical LAD ICD10 Worksheet Patient Problems: Problems Problem Status Onset CHF (congestive heart failure) Acute Hypoxia Acute Respiratory distress Acute
--- NOTE | 2017-03-11 14:58 | ASMTCMCOM ---
CM Note CM Note Notes: CM spoke w/ OT and they are recommending SNF. CM left a msg for Guille at [facility] inquiring if it would be a possibility for pt to get rehab. Pt will ultimately return back to [facility]. CM to follow. Plan: [facility] Date Signed: 03/11/2017 02:58 PM Electronically Signed By:CARLOS ALBERTO Fair
[2017-03-12] MEDS: oxyCODONE IR 5 MG TAB PO PRN ×5 (00:04→23:41)
[2017-03-12] MEDS: traMADol 50 MG TAB PO SCH ×4 (05:03→20:52)
[2017-03-12] MEDS: HEPARIN 5,000 UNIT/0.5 ML SYR SC SCH ×3 (05:04→20:54)
[2017-03-12] MEDS: METOPROLOL SUCCINATE XR 25 MG TAB PO SCH (08:09)
[2017-03-12] MEDS: DILTIAZEM CD 180 MG CAP PO SCH (08:09)
[2017-03-12] MEDS: PERPHENAZINE 8 MG TAB PO SCH ×2 (08:10→20:52)
[2017-03-12] MEDS: TAMSULOSIN HCL 0.4 MG CAP PO SCH (08:10)
[2017-03-12] MEDS: ARIPiprazole 10 MG TAB PO SCH (08:10)
[2017-03-12] MEDS: SENNOSIDES/DOCUSATE SODIUM TAB PO SCH ×2 (08:10→20:53)
[2017-03-12] MEDS: FUROSEMIDE 20 MG/2 ML VIAL IVP SCH (08:11)
[2017-03-12] MEDS: FLUTICASONE NASAL 120 SPRAYS/16 GM MDI EACHNARE SCH (12:27)
--- NOTE | 2017-03-12 12:53 | ASMTCMCOM ---
CM Note CM Note Notes: 03/12/2017 Case Management Note Spoke with Guille from [facility] [phone]. [facility] able to take pt back at d/c and can start PT services wtih Erika at the [facility] facility if needed. Guille requested that medicaid transport be arranged at d/c. Faxed updates via [facility]. There is no need for a PASSR or ULTC 100 d/t pt resident status at [facility] per Guille. Case Management d/c poc: return to [facility] with follow up as directed. Case Management to follow. Date Signed: 03/12/2017 12:53 PM Electronically Signed By:Sangita Smith RN
--- NOTE | 2017-03-12 14:31 | HOSPPROG ---
Hospitalist Progress Note Assessment/Plan: 66 yo M who lives at [facility] acute hypoxic resp failure - d/t pulmonary edema, pneumonia not clearly failure and minimal response to lasix abg w straight hypoxia longstanding tobacco use- suspect underlying copd, although not retaining co2 on abx LE u/s neg for pe, cr 2.[address] PE echo w pulm htn suggesting longstanding hypoxemia 1. CT now to look for mucus plugging pulm toilet bronch if sig mucus plug 2. start pred 3. continue abx Leg pain: neg doppler pneumonia, health care associated - change to rocephin as no resistant organisms found - WBC slowly trending down volume overload - normal EF and no DD on echo, valves ok; may be related to CKD or DEMARCUS - cont lasix 20 iv daily - net neg 7.5L - no IO's or wt recorded today 03/11- as above, increase lasix CKD - at recent baseline (last outpatient SCr 2.1) - follow closely with diuresis pulm htn - RVSP 58mmHg UTI with hematuria (resolved), e.coli in urine - cont rocephin - emily dc'd hyperkalemia - resolved schizophrenia - cont abilify, trilafon hypertension - cont clonidine, dilt, metop risk: high Subjective: high 02 requirements. no CP. not tachy. cxr w decreased air space disease from yesterday (interp by me). case d/w dr cook Objective: Vital Signs Temp Pulse Resp BP Pulse Ox 37.1 C 66 22 H 112/59 L 90 L 03/12/17 11:28 03/12/17 11:28 03/12/17 11:28 03/12/17 11:28 03/12/17 11:28 Laboratory Results 03/11/17 06:30 03/11/17 06:30 03/11/17 03/12/17 03/13/17 05:59 05:59 05:59 Intake Total 530 1430 Balance 530 1430 PT 13.1 SEC (12.0-15.0) 03/04/17 06:00 INR 0.97 (0.83-1.16) 03/04/17 06:00 - Physical Exam Constitutional: no apparent distress, appears nourished Eyes: PERRL, anicteric sclera Ears, Nose, Mouth, Throat: moist mucous membranes, hearing normal Cardiovascular: regular rate and rhythym, no murmur, rub, or gallop Respiratory: other (good air movement. distant breath sounds. scattered rhonchi) Gastrointestinal: normoactive bowel sounds, soft, non-tender abdomen Genitourinary: no bladder fullness, No diaz in urethra Skin: warm, normal color Musculoskeletal: full muscle strength, no muscle tenderness Neurologic: AAOx3, sensation intact bilaterally ICD10 Worksheet Patient Problems: Problems Problem Status Onset CHF (congestive heart failure) Acute Hypoxia Acute Respiratory distress Acute chronic disease mgmt/ transitional care Acute
[2017-03-12] MEDS: predniSONE 20 MG TAB PO SCH (16:22)
[2017-03-13] MEDS: oxyCODONE IR 5 MG TAB PO PRN ×5 (03:41→23:12)
[2017-03-13] MEDS: HEPARIN 5,000 UNIT/0.5 ML SYR SC SCH ×3 (06:06→21:16)
[2017-03-13] MEDS: traMADol 50 MG TAB PO SCH ×4 (06:07→20:35)
[2017-03-13] MEDS: FUROSEMIDE 20 MG/2 ML VIAL IVP SCH (08:13)
[2017-03-13] MEDS: METOPROLOL SUCCINATE XR 25 MG TAB PO SCH (08:13)
[2017-03-13] MEDS: DILTIAZEM CD 180 MG CAP PO SCH (08:13)
[2017-03-13] MEDS: ARIPiprazole 10 MG TAB PO SCH (08:14)
[2017-03-13] MEDS: SENNOSIDES/DOCUSATE SODIUM TAB PO SCH ×3 (08:14→20:38)
[2017-03-13] MEDS: PERPHENAZINE 8 MG TAB PO SCH ×2 (08:14→20:36)
[2017-03-13] MEDS: predniSONE 20 MG TAB PO SCH (08:14)
[2017-03-13] MEDS: TAMSULOSIN HCL 0.4 MG CAP PO SCH (08:15)
[2017-03-13] MEDS: FLUTICASONE NASAL 120 SPRAYS/16 GM MDI EACHNARE SCH (08:18)
[2017-03-13] MEDS: ALBUTEROL 3 ML DEYVIAL IH PRN (09:57)
--- NOTE | 2017-03-13 14:41 | HOSPPROG ---
Hospitalist Progress Note Assessment/Plan: 66 yo M who lives at [facility] acute hypoxic resp failure - on 15 LPM though clinically feels better. Etiologies include pulmonary edema, pneumonia, likely also OHS / DEMARCUS and suspect underlying copd with tobacco hx and mild emphysema on CT on abx, prednisone started yesterday for poss COPD component add hs bipap per pulm recs LE u/s neg for DVT, elevated Cr precludes CTPA echo w pulm htn suggesting longstanding hypoxemia, on home oxygen pneumonia, health care associated - has completed >7 days atbx and PCT neg today dc atbx leukocytosis - suspect 2/2 steroids, follow volume overload - suspect right HF with increased RVSP. Normal EF and no DD on echo, valves ok. Weight 113 kg on arrival --> 104 kg --> 109 kg today. BNP 1600 --> 800. - increase lasix to 40 mg IV BID from 20 mg IV daily CAD seen on CT - mildly elevated troponin on admission - cardiology consulted today regarding risk stratification, consider nury prior to dc CKD - at recent baseline ~2-2.2 - follow closely with diuresis pulm htn - RVSP 58mmHg UTI with hematuria (resolved), e.coli in urine, s/p 10 days cefepime/ceftriaxone hyperkalemia - resolved schizophrenia - cont abilify, trilafon hypertension - cont clonidine, dilt, metop risk: high Subjective: Pt feels better today. Reports less coughing. Endorses orthopnea, props himself up to sleep. No CP or SOB at rest. Objective: Vital Signs Temp Pulse Resp BP Pulse Ox 36.6 C 65 16 154/82 H 90 L 03/13/17 11:09 03/13/17 11:09 03/13/17 11:09 03/13/17 11:09 03/13/17 11:09 Laboratory Results 03/11/17 06:30 03/11/17 06:30 03/12/17 03/13/17 03/14/17 05:59 05:59 05:59 Intake Total 1430 3400 550 Balance 1430 3400 550 PT 13.1 SEC (12.0-15.0) 03/04/17 06:00 INR 0.97 (0.83-1.16) 03/04/17 06:00 - Physical Exam Constitutional: no apparent distress Eyes: PERRL Ears, Nose, Mouth, Throat: moist mucous membranes Cardiovascular: regular rate and rhythym Respiratory: no respiratory distress, inspiratory crackles Gastrointestinal: normoactive bowel sounds, soft, non-tender abdomen Skin: warm Musculoskeletal: full muscle strength, other (1+ b/l LE edema) Neurologic: AAOx3 Psychiatric: interacting appropriately ICD10 Worksheet Patient Problems: Problems Problem Status Onset CHF (congestive heart failure) Acute Hypoxia Acute Respiratory distress Acute chronic disease mgmt/ transitional care Acute
--- NOTE | 2017-03-13 16:42 | PDINTPN ---
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 * Acute respiratory failure with hypoxemia- clearly elements of both PNA and volume overload with elevated BNP, but EF 60% and no diastolic dysfunction on echo. BNP improved. O2 needs remain high at 10-15 liters/minute. . Not using bipap, though that would help with O2. * PNA- stable on cefepime * UTI- positive UA and culture now with E. coli. Continue to monitor. Cefepime should be adequate * DEMARCUS- will need outpatient sleep study. Would use bipap qhs for now as tolerated Plan: Encouraged IS, flutter valve to help mobilize secretions and minimize atelectasis. Continue CTX, prednisone. Will add DuoNebs scheduled. 03/13/17 16:46 Subjective: Feeels breathing is about the same. Denies dyspnea. Objective: Vital Signs Temp Pulse Resp BP Pulse Ox 36.6 C 65 16 154/82 H 90 L 03/13/17 11:09 03/13/17 11:09 03/13/17 11:09 03/13/17 11:09 03/13/17 11:09 Laboratory Results 03/13/17 15:05 03/13/17 15:05 03/12/17 03/13/17 03/14/17 05:59 05:59 05:59 Intake Total 1430 3400 550 Balance 1430 3400 550 PT 13.1 SEC (12.0-15.0) 03/04/17 06:00 INR 0.97 (0.83-1.16) 03/04/17 06:00 CT Chest: Bibasilar infiltrates c/w pneumonia, possible atelectasis. Images reviewed by me. Physical Exam - Physical Exam General Appearance: alert, no apparent distress EENT: pharynx normal Neck: normal inspection Respiratory: crackles (bases) Cardiac/Chest: regular rate, rhythm, No edema Abdomen: normal bowel sounds, non-tender Skin: normal color, warm/dry Extremities: normal inspection Neuro/Psych: alert, normal mood/affect ICD10 Worksheet Patient Problems: Problems Problem Status Onset CHF (congestive heart failure) Acute Hypoxia Acute Respiratory distress Acute chronic disease mgmt/ transitional care Acute
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
[2017-03-13] MEDS: FUROSEMIDE 40 MG/4 ML VIAL IVP SCH (16:58)
[2017-03-13 17:28] LABS: PLATELET COUNT 243 10^3/uL (150-400)
[2017-03-13] MEDS: IPRATROPIUM/ALBUTEROL 3 ML DEYVIAL IH SCH (20:56)
[2017-03-14] MEDS: oxyCODONE IR 5 MG TAB PO PRN ×4 (04:31→22:46)
[2017-03-14] MEDS: IPRATROPIUM/ALBUTEROL 3 ML DEYVIAL IH SCH ×4 (05:18→20:52)
[2017-03-14] MEDS: HEPARIN 5,000 UNIT/0.5 ML SYR SC SCH ×3 (05:41→22:43)
[2017-03-14 06:11] LABS: PLATELET COUNT 258 10^3/uL (150-400)
[2017-03-14] MEDS ORDERED: REGADENOSON 0.4 MG/5 ML SYR IVP ONE (09:36)
[2017-03-14] MEDS: TAMSULOSIN HCL 0.4 MG CAP PO SCH (10:26)
[2017-03-14] MEDS: traMADol 50 MG TAB PO SCH ×4 (10:26→20:17)
[2017-03-14] MEDS: ARIPiprazole 10 MG TAB PO SCH (10:26)
[2017-03-14] MEDS: FUROSEMIDE 40 MG/4 ML VIAL IVP SCH ×2 (10:27→16:30)
[2017-03-14] MEDS: SENNOSIDES/DOCUSATE SODIUM TAB PO SCH (10:27)
[2017-03-14] MEDS: METOPROLOL SUCCINATE XR 25 MG TAB PO SCH (10:27)
[2017-03-14] MEDS: predniSONE 20 MG TAB PO SCH (10:27)
[2017-03-14] MEDS: PERPHENAZINE 8 MG TAB PO SCH ×2 (10:28→20:17)
[2017-03-14] MEDS: FLUTICASONE NASAL 120 SPRAYS/16 GM MDI EACHNARE SCH (10:28)
[2017-03-14] MEDS: DILTIAZEM CD 180 MG CAP PO SCH (10:28)
--- NOTE | 2017-03-14 11:24 | SOAPPROG ---
SOAP Progress Note Assessment/Plan: Assessment: 1 pneumonia 2. Acute respiratory failure 3. Urinary tract infection 4. Obesity 5. Anemia 6. Elevated troponin 7. Psychiatric issues 8. Leg pain He actually feels better today. He has not had any chest pains. We tried to do a nuclear stress test with him and he did not want to sign the consent form. So he had a rest image which will be helpful to us and when he came down to sign consent for the injection injected images with pharmacologic agent he was not interested in that so that part of the test was not done. He is still on 15 L but he can lie flat on 15 L his O2 sat was only 89% on the 2 on the 15 L. He never had a history of asthma. He has urinary tract infection. There is nothing to suggest acute ischemia. We will work up his cardiovascular system later. His prognosis is guarded. Think it is interesting to think if chronic thromboembolic disease could play a role in his pulmonary issues. All his questions have been answered and visited with him several times today. Plan: 03/14/17 11:34 Subjective: He he has no chest pain He has no new shortness of breath His shortness of breath actually improved. He has no fevers or chills. Does not have a cough currently. Objective: Vital Signs Temp Pulse Resp BP Pulse Ox 36.7 C 63 14 148/64 H 98 03/14/17 08:00 03/14/17 08:00 03/14/17 08:00 03/14/17 08:00 03/14/17 08:00 Laboratory Results 03/14/17 05:52 03/14/17 05:52 03/13/17 03/14/17 03/15/17 05:59 05:59 05:59 Intake Total 3400 2490 Balance 3400 2490 PT 13.1 SEC (12.0-15.0) 03/04/17 06:00 INR 0.97 (0.83-1.16) 03/04/17 06:00 Laboratory Tests 03/04/17 03/04/17 03/08/17 12:35 17:45 04:00 WBC Hct Plt Count Patient Temperature pCO2 pO2 ABG pH ABG HCO3 ABG O2 Saturation Sodium Potassium Chloride Carbon Dioxide Creatinine 2.0 H Estimated GFR Glucose Calcium Troponin I 0.071 H 0.085 H NT-Pro-B Natriuret Pep 03/11/17 03/12/17 03/13/17 06:30 13:41 15:05 WBC 3.15 L D Hct 28.6 L Plt Count 128 L D Patient Temperature 37.0 pCO2 44 H pO2 53 L ABG pH 7.38 ABG HCO3 26 ABG O2 Saturation 85 L Sodium Potassium Chloride Carbon Dioxide Creatinine Estimated GFR Glucose Calcium Troponin I NT-Pro-B Natriuret Pep 798 H 03/13/17 15:05 WBC Hct Plt Count Patient Temperature pCO2 pO2 ABG pH ABG HCO3 ABG O2 Saturation Sodium 125 L Potassium 5.6 H Chloride 97 Carbon Dioxide 22 D Creatinine 0.5 L D Estimated GFR > 60 Glucose 135 H Calcium 7.6 L Troponin I NT-Pro-B Natriuret Pep Physical Exam - Physical Exam General Appearance: alert Neck: full range of motion, supple Respiratory: rhonchi, prolonged expiration Cardiac/Chest: regular rate, rhythm, systolic murmur Abdomen: non-tender, soft, No organomegaly Skin: warm/dry Extremities: No calf tenderness Neuro/Psych: alert ICD10 Worksheet Patient Problems: Problems Problem Status Onset CHF (congestive heart failure) Acute Hypoxia Acute Respiratory distress Acute chronic disease mgmt/ transitional care Acute
[2017-03-14] MEDS: ALBUTEROL 3 ML DEYVIAL IH PRN (13:47)
--- NOTE | 2017-03-14 14:33 | CPIP ---
[f rep st] INVASIVE CARDIAC PROCEDURE PROCEDURE: A pharmacologic nuclear stress test. The patient agreed to have a pharmacologic nuclear stress test yesterday and today, he went for his r est images. Then, as we were going to do the injection for the stress part of the study, the patient said he would prefer not to proceed any further and he would rather do the study another time. So wero escalera did not want to sign consent for that part of the imaging and so we canceled the test at that point . The patient has had his resting images. He had no complications from anything that has been done to him and we have taken him off the table because he chose not to go any further. He understands that the information that we are missing is the important information we are trying to get in the 1st place, but he is willing to accept the risks of proceeding without that information a nd wants no further study now. So, per his wishes, we will conclude the study in the middle and we w ill consider down the road options for him and things that he is willing to do. /[id number]/MODL
--- NOTE | 2017-03-14 14:34 | HOSPPROG ---
Hospitalist Progress Note Assessment/Plan: acute hypoxic resp failure - on 15 LPM though clinically feels better. Etiologies include pulmonary edema, pneumonia, likely also OHS / DEMARCUS and suspect underlying copd with tobacco hx and mild emphysema on CT. ? thromboembolic dz on abx, prednisone for poss COPD component hs bipap as tolerated per pulm recs LE u/s neg for DVT, elevated Cr precludes CTPA, but will obtain V/Q scan echo w pulm htn suggesting longstanding hypoxemia, on home oxygen pneumonia, health care associated - has completed >7 days atbx and PCT neg today atbx d/c'd leukocytosis - suspect 2/2 steroids, follow volume overload - suspect right HF with increased RVSP. Normal EF and no DD on echo, valves ok. Weight 113 kg on arrival --> 104 kg --> 109 kg today. BNP 1600 --> 800. cont diuresis with IV Lasix CAD seen on CT - mildly elevated troponin on admission, pt did not tolerate and declined to complete lexiscan ordered by cards. consider repeat stress test if/when respiratory status improved CKD - at recent baseline ~2-2.2 follow closely with diuresis pulm htn - RVSP 58mmHg UTI with hematuria (resolved), e.coli in urine, s/p 10 days cefepime/ceftriaxone hyperkalemia - resolved schizophrenia - cont abilify, trilafon hypertension - cont clonidine, dilt, metop risk: high Subjective: Pt continues to feel a little better everyday, but still on high flow O2 at 15 LPM. Coughing less. No CP or SOB. No fevers. Denies orthopnea. LE edema improving. Objective: Vital Signs Temp Pulse Resp BP Pulse Ox 36.7 C 59 L 20 148/64 H 90 L 03/14/17 08:00 03/14/17 13:48 03/14/17 13:48 03/14/17 08:00 03/14/17 13:48 Laboratory Results 03/14/17 05:52 03/14/17 05:52 03/13/17 03/14/17 03/15/17 05:59 05:59 05:59 Intake Total 3400 2490 Balance 3400 2490 PT 13.1 SEC (12.0-15.0) 03/04/17 06:00 INR 0.97 (0.83-1.16) 03/04/17 06:00 - Physical Exam Constitutional: no apparent distress Eyes: PERRL Ears, Nose, Mouth, Throat: moist mucous membranes Cardiovascular: regular rate and rhythym Respiratory: no respiratory distress, clear to auscultation, other (a few bibasilar crackles) Gastrointestinal: normoactive bowel sounds, soft, non-tender abdomen Skin: warm Musculoskeletal: full muscle strength Neurologic: AAOx3 Psychiatric: interacting appropriately ICD10 Worksheet Patient Problems: Problems Problem Status Onset CHF (congestive heart failure) Acute Hypoxia Acute Respiratory distress Acute chronic disease mgmt/ transitional care Acute
--- NOTE | 2017-03-14 16:20 | PDINTPN ---
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 * Acute respiratory failure with hypoxemia- clearly elements of both PNA and volume overload with elevated BNP, but EF 60% and no diastolic dysfunction on echo. BNP improved. O2 needs remain high at 10-15 liters/minute. Not using bipap, though that would help with O2. * PNA- Completed CTX. * UTI- S/P Rx with Cefepime, CTX. * DEMARCUS- will need outpatient sleep study. Would use bipap qhs for now as tolerated Plan: Encouraged IS, flutter valve to help mobilize secretions and minimize atelectasis. Continue DuoNebs scheduled, add Mucomyst, [email or web address]. 03/14/17 16:24 Subjective: Feels breathing is a bit better, especially if he is able to cough/expectorate. Objective: Vital Signs Temp Pulse Resp BP Pulse Ox 36.7 C 59 L 20 148/64 H 90 L 03/14/17 08:00 03/14/17 13:48 03/14/17 13:48 03/14/17 08:00 03/14/17 13:48 Laboratory Results 03/14/17 05:52 03/14/17 05:52 03/13/17 03/14/17 03/15/17 05:59 05:59 05:59 Intake Total 3400 2490 Balance 3400 2490 PT 13.1 SEC (12.0-15.0) 03/04/17 06:00 INR 0.97 (0.83-1.16) 03/04/17 06:00 Physical Exam - Physical Exam General Appearance: alert, no apparent distress EENT: normal ENT inspection Neck: normal inspection Respiratory: crackles (bases) Cardiac/Chest: regular rate, rhythm, No edema Abdomen: normal bowel sounds, non-tender Skin: normal color, warm/dry Extremities: normal inspection Neuro/Psych: alert, normal mood/affect, oriented x 3 ICD10 Worksheet Patient Problems: Problems Problem Status Onset CHF (congestive heart failure) Acute Hypoxia Acute Respiratory distress Acute chronic disease mgmt/ transitional care Acute
[2017-03-14] MEDS: guaiFENesin 600 MG TAB.ER PO SCH (20:16)
[2017-03-14] MEDS: ACETYLCYSTEINE 20% IH/PO 4 ML VIAL IH SCH (20:52)
[2017-03-15] MEDS: oxyCODONE IR 5 MG TAB PO PRN ×3 (02:48→23:16)
[2017-03-15] MEDS: SENNOSIDES/DOCUSATE SODIUM TAB PO SCH ×3 (03:47→21:36)
[2017-03-15] MEDS: traMADol 50 MG TAB PO SCH ×4 (05:00→20:30)
[2017-03-15] MEDS: HEPARIN 5,000 UNIT/0.5 ML SYR SC SCH ×3 (05:01→21:35)
[2017-03-15 05:32] LABS: PLATELET COUNT 258 10^3/uL (150-400)
[2017-03-15] MEDS: IPRATROPIUM/ALBUTEROL 3 ML DEYVIAL IH SCH ×4 (05:50→21:50)
[2017-03-15] MEDS: ARIPiprazole 10 MG TAB PO SCH (09:29)
[2017-03-15] MEDS: DILTIAZEM CD 180 MG CAP PO SCH (09:29)
[2017-03-15] MEDS: PERPHENAZINE 8 MG TAB PO SCH ×2 (09:32→20:29)
[2017-03-15] MEDS: predniSONE 20 MG TAB PO SCH (09:32)
[2017-03-15] MEDS: guaiFENesin 600 MG TAB.ER PO SCH ×2 (09:32→20:29)
[2017-03-15] MEDS: METOPROLOL SUCCINATE XR 25 MG TAB PO SCH (09:32)
[2017-03-15] MEDS: TAMSULOSIN HCL 0.4 MG CAP PO SCH (09:32)
[2017-03-15] MEDS: FUROSEMIDE 40 MG TAB PO SCH (09:32)
[2017-03-15] MEDS: FLUTICASONE NASAL 120 SPRAYS/16 GM MDI EACHNARE SCH (09:35)
--- NOTE | 2017-03-15 10:36 | ASMTCMCOM ---
CM Note CM Note Notes: CM spoke w/ RENE Reyna regarding d/c POC. CM sent [facility] updates. Pt will d/c back to [facility] once medically stable. CM to follow. Plan: [facility] Date Signed: 03/15/2017 10:36 AM Electronically Signed By:CARLOS ALBERTO Fair
[2017-03-15] MEDS: ACETYLCYSTEINE 20% IH/PO 4 ML VIAL IH SCH ×3 (11:06→21:50)
--- NOTE | 2017-03-15 11:28 | SOAPPROG ---
SOAP Progress Note Assessment/Plan: Assessment: Plan: 03/14/17 11:34 03/15/17 11:28 1 1. Pneumonia 2. Acute respiratory failure 3. Urinary tract infection 4. Obesity 5. Anemia 6. Psychiatric issues 7. Leg pain 8. Troponin elevation 9. Renal insufficiency. We did the 1st part of a nuclear stress test and he did not consent for the 2nd part of the study. When he does get out of the hospital a be happy to see him in clinic and I can keep an eye make sure he gets his sleep study and we can complete a stress test when he is not feeling so short of breath and does not have as much respiratory failure. His creatinine is an issue and being watched. Himself has no other questions today. Do not feel like he needs an invasive ischemic workup right now and he is not interested in invasive evaluation. We will sign off the case and see him in follow-up in the office. If we can be of any further assistance let us know at any time. Subjective: He is doing well. He has no chest pain. He has shortness of breath He has no nausea vomiting Not feeling lightheaded dizzy. Is not having any chest tightness. Feels like he is slowly getting stronger. Objective: Vital Signs Temp Pulse Resp BP Pulse Ox 36.8 C 54 L 24 H 169/52 H 95 03/15/17 11:15 03/15/17 11:15 03/15/17 11:15 03/15/17 11:15 03/15/17 11:15 Laboratory Results 03/15/17 05:20 03/15/17 05:20 03/14/17 03/15/17 03/16/17 05:59 05:59 05:59 Intake Total 2490 1000 Balance 2490 1000 PT 13.1 SEC (12.0-15.0) 03/04/17 06:00 INR 0.97 (0.83-1.16) 03/04/17 06:00 So at least the and knows when he Physical Exam - Physical Exam General Appearance: WD/WN, alert (Okay with that taking care), no apparent distress (Has a baby do not) Respiratory: rhonchi, prolonged expiration Abdomen: non-tender, soft Skin: pallor Neuro/Psych: alert, normal mood/affect (Now is your a a a the a prior try the a he a the about he has a a) ICD10 Worksheet Patient Problems: Problems Problem Status Onset CHF (congestive heart failure) Acute Hypoxia Acute Respiratory distress Acute chronic disease mgmt/ transitional care Acute
--- NOTE | 2017-03-15 14:58 | HOSPPROG ---
Hospitalist Progress Note Assessment/Plan: acute hypoxemic respiratory failure - O2 down to 10 LPM from 15, clinically feels better each day. Etiologies include pulmonary edema, pneumonia, likely also OHS / DEMARCUS and suspect underlying copd with tobacco hx and mild emphysema on CT. ?thromboembolic dz on abx, prednisone for poss COPD component hs bipap as tolerated per pulm recs LE u/s neg for DVT, elevated Cr precludes CTPA, V/Q ordered but pt refuses, acknowledging risk of undiagnosed PE echo w pulm htn suggesting longstanding hypoxemia, on home oxygen pneumonia, health care associated - has completed >7 days atbx and PCT neg today atbx d/c'd leukocytosis - suspect 2/2 steroids, follow volume overload - suspect right HF with increased RVSP. Normal EF and no DD on echo, valves ok. Weight 113 kg on arrival --> 104 kg --> 109 kg today. BNP 1600 --> 800. cont diuresis, will change to po lasix today CAD seen on CT - mildly elevated troponin on admission, pt did not tolerate and declined to complete lexiscan ordered by cards. consider repeat stress test when respiratory status improved CKD - at recent baseline 2-2.2 follow closely with diuresis pulm htn - RVSP 58mmHg UTI with hematuria (resolved), e.coli in urine, s/p 10 days cefepime/ceftriaxone hyperkalemia - resolved schizophrenia - cont abilify, trilafon hypertension - cont clonidine, dilt, metop risk: high dispo - cont inpt Subjective: Pt feels a little better each day. He adamantly refuses V/Q scan today. He also refused nuc stress test yesterday. Breathing is improved. Denies CP or SOB. No orthopnea. Less LE edema. No fevers. Objective: Vital Signs Temp Pulse Resp BP Pulse Ox 36.8 C 54 L 24 H 169/52 H 95 03/15/17 11:15 03/15/17 11:15 03/15/17 11:15 03/15/17 11:15 03/15/17 11:15 Laboratory Results 03/15/17 05:20 03/15/17 05:20 03/14/17 03/15/17 03/16/17 05:59 05:59 05:59 Intake Total 2490 1000 Balance 2490 1000 PT 13.1 SEC (12.0-15.0) 03/04/17 06:00 INR 0.97 (0.83-1.16) 03/04/17 06:00 - Physical Exam Constitutional: no apparent distress Eyes: PERRL Ears, Nose, Mouth, Throat: moist mucous membranes Cardiovascular: regular rate and rhythym Respiratory: no respiratory distress, reduced air movement, expiratory wheeze Gastrointestinal: normoactive bowel sounds, soft, non-tender abdomen Skin: warm Musculoskeletal: full muscle strength Neurologic: AAOx3 Psychiatric: interacting appropriately ICD10 Worksheet Patient Problems: Problems Problem Status Onset CHF (congestive heart failure) Acute Hypoxia Acute Respiratory distress Acute chronic disease mgmt/ transitional care Acute
--- NOTE | 2017-03-15 15:35 | PDINTPN ---
Curatorial Assistant Progress Note Assessment/Plan: Assessment: 66 M with history of schizophrenia and lives at [place], admitted 03/04/17 with significant respiratory distress. * Acute respiratory failure with hypoxemia- clearly elements of both PNA and volume overload with elevated BNP, but EF 60% and no diastolic dysfunction on echo. BNP improved. O2 needs down a bit from 15->10 liters/minute. Not using bipap, though that would help with O2. * PNA- Completed CTX. * UTI- S/P Rx with Cefepime, CTX. * DEMARCUS- will need outpatient sleep study. Would use bipap qhs for now as tolerated Plan: Encouraged IS, flutter valve to help mobilize secretions and minimize atelectasis. Continue DuoNebs, Mucomyst, guaifenesin. 03/14/17 16:24 03/15/17 15:38 Subjective: Feels breathing is better, less chest congestion/dyspnea. Thirsty Objective: Vital Signs Temp Pulse Resp BP Pulse Ox 36.7 C 66 13 122/67 H 93 03/15/17 14:54 03/15/17 14:54 03/15/17 14:54 03/15/17 14:54 03/15/17 14:54 Laboratory Results 03/15/17 05:20 03/15/17 05:20 03/14/17 03/15/17 03/16/17 05:59 05:59 05:59 Intake Total 2490 1000 Balance 2490 1000 PT 13.1 SEC (12.0-15.0) 03/04/17 06:00 INR 0.97 (0.83-1.16) 03/04/17 06:00 Physical Exam - Physical Exam General Appearance: alert, no apparent distress EENT: normal ENT inspection Neck: normal inspection Respiratory: lungs clear, normal breath sounds Cardiac/Chest: regular rate, rhythm, No edema Abdomen: non-tender, soft Skin: normal color, warm/dry Extremities: normal inspection Neuro/Psych: alert, normal mood/affect ICD10 Worksheet Patient Problems: Problems Problem Status Onset CHF (congestive heart failure) Acute Hypoxia Acute Respiratory distress Acute chronic disease mgmt/ transitional care Acute
[2017-03-16] MEDS: HEPARIN 5,000 UNIT/0.5 ML SYR SC SCH ×3 (05:22→21:20)
[2017-03-16] MEDS: traMADol 50 MG TAB PO SCH ×4 (05:22→21:19)
[2017-03-16] MEDS: IPRATROPIUM/ALBUTEROL 3 ML DEYVIAL IH SCH ×4 (05:40→21:14)
[2017-03-16] MEDS: DILTIAZEM CD 180 MG CAP PO SCH (08:10)
[2017-03-16] MEDS: TAMSULOSIN HCL 0.4 MG CAP PO SCH (08:13)
[2017-03-16] MEDS: METOPROLOL SUCCINATE XR 25 MG TAB PO SCH (08:13)
[2017-03-16] MEDS: PERPHENAZINE 8 MG TAB PO SCH ×2 (08:13→21:19)
[2017-03-16] MEDS: FUROSEMIDE 40 MG TAB PO SCH (08:13)
[2017-03-16] MEDS: SENNOSIDES/DOCUSATE SODIUM TAB PO SCH ×2 (08:13→21:17)
[2017-03-16] MEDS: guaiFENesin 600 MG TAB.ER PO SCH ×2 (08:13→21:19)
[2017-03-16] MEDS: ARIPiprazole 10 MG TAB PO SCH (08:14)
[2017-03-16] MEDS: predniSONE 20 MG TAB PO SCH (08:14)
[2017-03-16] MEDS: FLUTICASONE NASAL 120 SPRAYS/16 GM MDI EACHNARE SCH (08:18)
--- NOTE | 2017-03-16 10:43 | HOSPPROG ---
Hospitalist Progress Note Assessment/Plan: acute hypoxemic respiratory failure - O2 down to 8 LPM from 15, clinically feels better each day. Etiologies include pulmonary edema, pneumonia, likely also OHS / DEMARCUS and suspect underlying copd with tobacco hx and mild emphysema on CT. ?thromboembolic dz completed 5 days prednisone, will d/c hs bipap as tolerated per pulm recs pt refuses V/Q scan, acknowledging risk of undiagnosed PE. LE u/s neg for DVT echo w pulm htn suggesting longstanding hypoxemia, on home oxygen pneumonia, health care associated - has completed >7 days atbx and PCT neg today leukocytosis - suspect 2/2 steroids, anitcipate improvement with discontinuation of prednisone volume overload - suspect right HF with increased RVSP. Normal EF and no DD on echo, valves ok. Weight 113 kg --> 107 kg today. BNP 1600 --> 800. cont diuresis, back on home lasix dose CAD seen on CT - mildly elevated troponin on admission, pt did not tolerate and declined to complete lexiscan ordered by cards. consider repeat stress test when respiratory status improved, though pt refused nury previously CKD - at recent baseline 2-2.2 follow closely with diuresis pulm htn - RVSP 58 mmHg UTI with hematuria (resolved), e.coli in urine, s/p 10 days cefepime/ceftriaxone hyperkalemia - resolved schizophrenia - cont abilify, trilafon hypertension - cont clonidine, dilt, metop risk: high dispo - cont inpt Subjective: Pt feels a little better everyday. Breathing improved. Coughing less. Denies orthopnea. LE edema improving. No fevers. Objective: Vital Signs Temp Pulse Resp BP Pulse Ox 36.6 C 58 L 23 H 184/99 H 89 L 03/16/17 07:07 03/16/17 07:07 03/16/17 07:07 03/16/17 07:07 03/16/17 07:07 Laboratory Results 03/16/17 05:50 03/16/17 05:50 03/15/17 03/16/17 03/17/17 05:59 05:59 05:59 Intake Total 1000 1400 Balance 1000 1400 PT 13.1 SEC (12.0-15.0) 03/04/17 06:00 INR 0.97 (0.83-1.16) 03/04/17 06:00 - Physical Exam Constitutional: no apparent distress Eyes: PERRL Ears, Nose, Mouth, Throat: moist mucous membranes Cardiovascular: regular rate and rhythym Respiratory: no respiratory distress, clear to auscultation (clear on left, faint RLL crackles) Gastrointestinal: normoactive bowel sounds, soft, non-tender abdomen Skin: warm Musculoskeletal: other (LE brawny discoloration c/w venous stasis, edema improved) Neurologic: AAOx3 Psychiatric: interacting appropriately ICD10 Worksheet Patient Problems: Problems Problem Status Onset CHF (congestive heart failure) Acute Hypoxia Acute Respiratory distress Acute chronic disease mgmt/ transitional care Acute
[2017-03-16] MEDS: ACETYLCYSTEINE 20% IH/PO 4 ML VIAL IH SCH ×3 (10:44→21:14)
[2017-03-16] MEDS: hydrALAZINE 25 MG TAB PO PRN ×2 (11:38→17:53)
[2017-03-17] MEDS: oxyCODONE IR 5 MG TAB PO PRN ×4 (02:24→23:32)
[2017-03-17] MEDS: traMADol 50 MG TAB PO SCH ×4 (05:25→22:22)
[2017-03-17] MEDS: HEPARIN 5,000 UNIT/0.5 ML SYR SC SCH ×3 (05:26→22:18)
[2017-03-17] MEDS: IPRATROPIUM/ALBUTEROL 3 ML DEYVIAL IH SCH ×4 (05:42→19:50)
[2017-03-17 06:21] LABS: PLATELET COUNT 255 10^3/uL (150-400)
[2017-03-17] MEDS: guaiFENesin 600 MG TAB.ER PO SCH ×2 (08:38→22:22)
[2017-03-17] MEDS: FUROSEMIDE 40 MG TAB PO SCH (08:38)
[2017-03-17] MEDS: TAMSULOSIN HCL 0.4 MG CAP PO SCH (08:38)
[2017-03-17] MEDS: PERPHENAZINE 8 MG TAB PO SCH ×2 (08:38→22:19)
[2017-03-17] MEDS: METOPROLOL SUCCINATE XR 25 MG TAB PO SCH (08:38)
[2017-03-17] MEDS: DILTIAZEM CD 180 MG CAP PO SCH (08:39)
[2017-03-17] MEDS: ARIPiprazole 10 MG TAB PO SCH (08:39)
[2017-03-17] MEDS: SENNOSIDES/DOCUSATE SODIUM TAB PO SCH ×2 (08:40→22:19)
[2017-03-17] MEDS: FLUTICASONE NASAL 120 SPRAYS/16 GM MDI EACHNARE SCH (08:43)
[2017-03-17] MEDS: ACETYLCYSTEINE 20% IH/PO 4 ML VIAL IH SCH ×3 (10:00→19:50)
[2017-03-17] MEDS: ALBUTEROL 3 ML DEYVIAL IH PRN (10:00)
--- NOTE | 2017-03-17 15:38 | HOSPPROG ---
Hospitalist Progress Note Assessment/Plan: acute hypoxemic respiratory failure - O2 down to 8 LPM from 15, clinically feels better each day. Suspect elements of pulmonary edema, pneumonia, likely also OHS / DEMARCUS and suspect underlying copd with tobacco hx and mild emphysema on CT. ?thromboembolic dz completed 5 days prednisone burst, not wheezing hs bipap as tolerated per pulm recs, though pt not compliant pt refuses V/Q scan, acknowledging risk of undiagnosed PE. LE u/s neg for DVT echo shows pulm htn suggesting longstanding hypoxemia, on home oxygen pneumonia, health care associated - has completed >7 days atbx and PCT neg leukocytosis - suspect 2/2 steroids, anitcipate improvement with discontinuation of prednisone volume overload - suspect right HF with increased RVSP. Normal EF and no DD on echo, valves ok. Weight 113 kg --> 107 kg today. BNP 1600 --> 800. cont diuresis, back on home lasix dose CAD seen on CT - mildly elevated troponin on admission, cards consulted and attempted stress test though pt refused to complete and did not tolerate well consider repeat stress test when respiratory status improved, though pt refused nury previously CKD - at recent baseline 2-2.2 follow closely with diuresis pulm htn - RVSP 58 mmHg UTI with hematuria (resolved), e.coli in urine, s/p 10 days cefepime/ceftriaxone hyperkalemia - resolved schizophrenia - cont abilify, trilafon hypertension - cont clonidine, dilt, metop risk: high dispo - cont inpt, back to [facility] when O2 requirement down to more reasonable level Subjective: Pt feels a little better each day. No fevers. Denies orthopnea. No CP or SOB at rest. Decreased LE edema. Taking po well. Objective: Vital Signs Temp Pulse Resp BP Pulse Ox 36.6 C 75 16 123/53 H 92 03/17/17 15:30 03/17/17 15:30 03/17/17 15:30 03/17/17 15:30 03/17/17 15:30 Laboratory Results 03/17/17 06:15 03/16/17 05:50 03/16/17 03/17/17 03/18/17 05:59 05:59 05:59 Intake Total 1400 1510 640 Balance 1400 1510 640 PT 13.1 SEC (12.0-15.0) 03/04/17 06:00 INR 0.97 (0.83-1.16) 03/04/17 06:00 - Physical Exam Constitutional: no apparent distress Eyes: PERRL Ears, Nose, Mouth, Throat: moist mucous membranes Cardiovascular: regular rate and rhythym Respiratory: no respiratory distress, clear to auscultation Gastrointestinal: normoactive bowel sounds, soft, non-tender abdomen Skin: warm Musculoskeletal: other (brawny b/l LE discoloration, decreased edema) Neurologic: AAOx3 Psychiatric: interacting appropriately ICD10 Worksheet Patient Problems: Problems Problem Status Onset CHF (congestive heart failure) Acute Hypoxia Acute Respiratory distress Acute chronic disease mgmt/ transitional care Acute
--- NOTE | 2017-03-17 15:49 | PDINTPN ---
Clinical Pharmacologist Progress Note Assessment/Plan: Assessment: 66 M with history of schizophrenia and lives at [place], admitted 03/04/17 with significant respiratory distress. * Acute respiratory failure with hypoxemia- clearly elements of both PNA and volume overload with elevated BNP, but EF 60% and no diastolic dysfunction on echo. BNP improved. O2 needs down from 15->8 liters/minute. Not using bipap, though that would help with O2. * PNA- Completed CTX. * UTI- S/P Rx with Cefepime, CTX. * DEMARCUS- will need outpatient sleep study. Would use bipap qhs for now as tolerated, but he's not compliant Plan: Continue to encourage IS, flutter valve to help mobilize secretions and minimize atelectasis. Continue DuoNebs, Mucomyst, guaifenesin. 03/17/17 15:48 03/17/17 15:48 Subjective: Feels breathing is better, able to take deeper breaths. Objective: Vital Signs Temp Pulse Resp BP Pulse Ox 36.6 C 75 16 123/53 H 92 03/17/17 15:30 03/17/17 15:30 03/17/17 15:30 03/17/17 15:30 03/17/17 15:30 Laboratory Results 03/17/17 06:15 03/16/17 05:50 03/16/17 03/17/17 03/18/17 05:59 05:59 05:59 Intake Total 1400 1510 640 Balance 1400 1510 640 PT 13.1 SEC (12.0-15.0) 03/04/17 06:00 INR 0.97 (0.83-1.16) 03/04/17 06:00 Physical Exam - Physical Exam General Appearance: alert, no apparent distress EENT: normal ENT inspection Neck: normal inspection Respiratory: crackles (bases) Cardiac/Chest: normal peripheral pulses, regular rate, rhythm Abdomen: normal bowel sounds, non-tender Skin: normal color, warm/dry Extremities: normal inspection Neuro/Psych: alert, normal mood/affect ICD10 Worksheet Patient Problems: Problems Problem Status Onset CHF (congestive heart failure) Acute Hypoxia Acute Respiratory distress Acute chronic disease mgmt/ transitional care Acute
[2017-03-18] MEDS: ACETAMINOPHEN 325 MG TAB PO PRN ×2 (04:41→18:11)
[2017-03-18] MEDS: IPRATROPIUM/ALBUTEROL 3 ML DEYVIAL IH SCH ×4 (05:04→19:44)
[2017-03-18] MEDS: traMADol 50 MG TAB PO SCH ×4 (05:26→21:37)
[2017-03-18] MEDS: HEPARIN 5,000 UNIT/0.5 ML SYR SC SCH ×3 (05:26→21:36)
[2017-03-18 06:08] LABS: PLATELET COUNT 270 10^3/uL (150-400)
[2017-03-18] MEDS: SENNOSIDES/DOCUSATE SODIUM TAB PO SCH ×2 (08:00→21:37)
[2017-03-18] MEDS: ARIPiprazole 10 MG TAB PO SCH (08:00)
[2017-03-18] MEDS: DILTIAZEM CD 180 MG CAP PO SCH (08:00)
[2017-03-18] MEDS: PERPHENAZINE 8 MG TAB PO SCH ×2 (08:00→21:37)
[2017-03-18] MEDS: METOPROLOL SUCCINATE XR 25 MG TAB PO SCH (08:01)
[2017-03-18] MEDS: guaiFENesin 600 MG TAB.ER PO SCH ×2 (08:01→21:37)
[2017-03-18] MEDS: oxyCODONE IR 5 MG TAB PO PRN ×2 (08:01→14:03)
[2017-03-18] MEDS: TAMSULOSIN HCL 0.4 MG CAP PO SCH (08:02)
[2017-03-18] MEDS: FUROSEMIDE 40 MG TAB PO SCH (08:02)
[2017-03-18] MEDS: FLUTICASONE NASAL 120 SPRAYS/16 GM MDI EACHNARE SCH (09:10)
[2017-03-18] MEDS: ACETYLCYSTEINE 20% IH/PO 4 ML VIAL IH SCH ×3 (11:30→19:44)
--- NOTE | 2017-03-18 13:28 | HOSPPROG ---
Hospitalist Progress Note Assessment/Plan: This is a 66-year-old male new to my care on 03/18/2017 presenting with acute hypoxemic respiratory failure - O2 down to 8 LPM from 15, clinically feels better each day. Suspect elements of pulmonary edema, pneumonia, likely also OHS / DEMARCUS and suspect underlying copd with tobacco hx and mild emphysema on CT. ?thromboembolic dz completed 5 days prednisone burst, not wheezing hs bipap as tolerated per pulm recs, though pt not compliant pt refuses V/Q scan, acknowledging risk of undiagnosed PE. LE u/s neg for DVT echo shows pulm htn suggesting longstanding hypoxemia, on home oxygen -repeat cxr today pneumonia, health care associated - has completed >7 days atbx and PCT neg leukocytosis - suspect 2/2 steroids, anitcipate improvement with discontinuation of prednisone volume overload - suspect right HF with increased RVSP. Normal EF and no DD on echo, valves ok. Weight 113 kg --> 107 kg today. BNP 1600 --> 800. CAD seen on CT - mildly elevated troponin on admission, cards consulted and attempted stress test though pt refused to complete and did not tolerate well consider repeat stress test when respiratory status improved, though pt refused nury previously CKD - at recent baseline 2-2.2 follow closely with diuresis pulm htn - RVSP 58 mmHg UTI with hematuria (resolved), e.coli in urine, s/p 10 days cefepime/ceftriaxone hyperkalemia - resolved schizophrenia - cont abilify, trilafon hypertension - cont clonidine, dilt, metop risk: high dispo - cont inpt, back to [facility] when O2 requirement down to more reasonable level Subjective: no fever or chills. shortness of breath persists. no cough. no chest pain Objective: Vital Signs Temp Pulse Resp BP Pulse Ox 36.9 C 54 L 18 119/60 90 L 03/18/17 11:07 03/18/17 11:34 03/18/17 11:34 03/18/17 11:07 03/18/17 11:34 Laboratory Results 03/18/17 05:25 03/18/17 05:25 03/17/17 03/18/17 03/19/17 05:59 05:59 05:59 Intake Total 1510 2660 Balance 1510 2660 PT 13.1 SEC (12.0-15.0) 12/25/17 06:00 INR 0.97 (0.83-1.16) 03/04/17 06:00 - Physical Exam Constitutional: no apparent distress, appears nourished, not in pain Cardiovascular: regular rate and rhythym, no murmur, rub, or gallop Respiratory: no respiratory distress, no rales or rhonchi, clear to auscultation , reduced air movement (bilat bases) Gastrointestinal: normoactive bowel sounds, soft, non-tender abdomen, no palpable masses, No rebound, No distension ICD10 Worksheet Patient Problems: Problems Problem Status Onset chronic disease mgmt/ transitional care Acute Respiratory distress Acute CHF (congestive heart failure) Acute Hypoxia Acute
--- NOTE | 2017-03-18 15:15 | SOAPPROG ---
SOAP Progress Note Assessment/Plan: Assessment: 66 M with history of schizophrenia and lives at [place], admitted 03/04/17 with significant respiratory distress. * Acute respiratory failure with hypoxemia- clearly elements of both PNA and volume overload with elevated BNP, but EF 60% and no diastolic dysfunction on echo. BNP improved. O2 needs down from 15 now to 6 liters/minute. Probably has underlying sleep apnea but not using bipap, though that would help with O2. * PNA- Completed CTX. Still with central congestion but he has a good cough. * UTI- S/P Rx with Cefepime, CTX. * Renal insufficiency-BUN and creatinine both up somewhat today. Will follow. * DEMARCUS- will need outpatient sleep study. Would use bipap qhs for now as tolerated, but he's not compliant Plan: Continue O2, bronchopulmonary therapies and IS. Continue flutter valve to help mobilize secretions and minimize atelectasis. Continue DuoNebs, Mucomyst , guaifenesin. Continue Lasix. Follow I and Os, renal function. Continue physical therapy and strengthening as possible. Follow chest x-ray intermittently. Continue inpatient treatment for now, not ready for discharge. Subjective: Feels better. Still has some cough and mucus but he swallows it. Denies chest pain. Shortness of breath has improved. Objective: Vital Signs Temp Pulse Resp BP Pulse Ox 36.9 C 54 L 18 119/60 90 L 03/18/17 11:07 03/18/17 11:34 03/18/17 11:34 03/18/17 11:07 03/18/17 11:34 Laboratory Results 03/18/17 05:25 03/18/17 05:25 03/17/17 03/18/17 03/19/17 05:59 05:59 05:59 Intake Total 1510 2660 Balance 1510 2660 PT 13.1 SEC (12.0-15.0) 03/04/17 06:00 INR 0.97 (0.83-1.16) 03/04/17 06:00 CXR: Waxing and waning atelectasis. Clearer on the right at this point, increased atelectasis in the retrocardiac area today. Physical Exam - Physical Exam General Appearance: alert, no apparent distress EENT: other (Nasal cannula in place at 6 L) Neck: normal inspection (Large neck. No obvious JVD but cannot rule out) Respiratory: lungs clear (Anteriorly), decreased breath sounds (Course), rales ( Rales at right base greater than left), rhonchi (Few rhonchi present centrally with cough), No pleural rub Cardiac/Chest: regular rate, rhythm, bradycardia Abdomen: normal bowel sounds, non-tender, soft (Overweight) Male Genitalia: other (No Huitron catheter, incontinence) Skin: normal color, warm/dry Extremities: pedal edema, other (Lower extremities erythematous) Neuro/Psych: no motor/sensory deficits (Globally weak, difficult for him to sit up under his own power in bed.), No cognition abnormalities (Oriented, probably a baseline) ICD10 Worksheet Patient Problems: Problems Problem Status Onset chronic disease mgmt/ transitional care Acute Respiratory distress Acute CHF (congestive heart failure) Acute Hypoxia Acute
[2017-03-19] MEDS: IPRATROPIUM/ALBUTEROL 3 ML DEYVIAL IH SCH ×2 (05:17→10:49)
[2017-03-19] MEDS: HEPARIN 5,000 UNIT/0.5 ML SYR SC SCH (05:26)
[2017-03-19] MEDS: traMADol 50 MG TAB PO SCH ×2 (05:27→11:07)
[2017-03-19] MEDS: DILTIAZEM CD 180 MG CAP PO SCH (08:09)
[2017-03-19] MEDS: FUROSEMIDE 40 MG TAB PO SCH (08:09)
[2017-03-19] MEDS: ARIPiprazole 10 MG TAB PO SCH (08:09)
[2017-03-19] MEDS: TAMSULOSIN HCL 0.4 MG CAP PO SCH (08:09)
[2017-03-19] MEDS: guaiFENesin 600 MG TAB.ER PO SCH (08:10)
[2017-03-19] MEDS: PERPHENAZINE 8 MG TAB PO SCH (08:10)
[2017-03-19] MEDS: METOPROLOL SUCCINATE XR 25 MG TAB PO SCH (08:10)
[2017-03-19] MEDS: SENNOSIDES/DOCUSATE SODIUM TAB PO SCH (08:10)
[2017-03-19] MEDS: ACETAMINOPHEN 325 MG TAB PO PRN (08:13)
[2017-03-19] MEDS: FLUTICASONE NASAL 120 SPRAYS/16 GM MDI EACHNARE SCH (08:38)
[2017-03-19] MEDS: ACETYLCYSTEINE 20% IH/PO 4 ML VIAL IH SCH (10:54)
[2017-03-19 11:47] VITALS: RESP 18; TEMP 98; O2SAT 93
--- NOTE | 2017-03-19 12:08 | WOCRNPDOC ---
WOCRN Advanced Assessment Note - Skin Integrity Problem, Advanced Assess Right Heel Pressure Injury Dressing Type: Open to Air Exudate Amount: None Exudate Characteristic(s): None Integumentary Issue Intervention: Dressing Applied Sofia Wound Tissue: Blanching, Intact Sofia Wound Swelling: None Wound Bed Color: Red Wound Bed Constitution: Intact Serous Filled Blister Site Odor: None Site Measurement - Head-to-Toe Length X Width X Depth (cm): 3.1cmx 2.6cmx blister Pressure Injury Stage: Stage 2 Pressure Injury Present on Admit: No (Physician notified) Skin Integrity Problem Comment: Intact serous-filled blister noted to posterior aspect of patient's R heel, appearance consistent w/ stage 2 pressure injury. Periwound skin is intact and blanching. Site covered w/ an Allevyn Life dressing , and order for off-loading heel boots placed. Will have nursing apply boot to L foot as well for prophylaxis. Accu-max pump placed on bed by nursing. Wound care will continue to monitor as wound evolves.
--- NOTE | 2017-03-19 12:36 | PDIAF ---
- Diagnosis Diagnosis: pneumonia Code Status: Full Code - Medication Management Discharge Medications: Medications to Continue on Transfer Diltiazem HCl [Taztia Xt] 360 mg PO DAILY 08/12/09 [Last Taken 03/03/17] ARIPIPRAZOLE [Abilify 20mg] 20 mg PO DAILY 03/04/17 [Last Taken 03/03/17] Acetaminophen [Tylenol 325mg (*)] 650 mg PO Q6H PRN 03/04/17 [Last Taken ] Ascorbic Acid [Vitamin C 500 mg (*)] 500 mg PO DAILY 03/04/17 [Last Taken ] Bisacodyl [Dulcolax] 10 mg RC DAILY PRN 03/04/17 [Last Taken Unknown] Fluticasone Nasal [Flonase Nasal [place]] 1 sprays NASAL DAILY 03/04/17 [Last Taken 03/03/17] Furosemide [Lasix 40 MG (*)] 40 mg PO DAILY 03/04/17 [Last Taken 03/03/17] Magnesium Hydroxide/Al Hydrox [Mylanta Liquid] 20 ml PO Q4H PRN 03/04/17 [Last Taken Unknown] Metoprolol Succinate Xr [Toprol Xl 25 mg (*)] 25 mg PO DAILY 03/04/17 [Last Taken 03/03/17] Multivitamins [Multivitamin (*)] 1 each PO DAILY 03/04/17 [Last Taken 03/03/17] Perphenazine [Trilafon 8mg (*)] 8 mg PO BID 03/04/17 [Last Taken 03/03/17] Polyethylene Glycol 3350 [Miralax 17 gm (*)] 17 gm PO DAILY 03/04/17 [Last Taken 03/03/17] Potassium Chloride [Klor-Con M20] 20 meq PO DAILY 03/04/17 [Last Taken 03/03/17] Sennosides/Docusate Sodium [Senokot-S] 2 each PO BID 03/04/17 [Last Taken ] Sodium Chloride [Saline Nose [place]] 1 spray NS Q4H PRN 03/04/17 [Last Taken Unknown] Tamsulosin HCl [Flomax 0.4 MG (*)] 0.4 mg PO DAILY 03/04/17 [Last Taken 03/03/17 ] clonIDINE [Catapres (*)] 0.2 mg PO BID 03/04/17 [Last Taken 03/03/17] traMADol [Ultram 50 mg (*)] 50 mg PO QID 03/04/17 [Last Taken 03/03/17] Albuterol [Proventil Neb] 3 ml IH Q2HRS PRN #10 deyvial 03/19/17 [Last Taken Unknown] guaiFENesin [Mucinex 600 MG (*)] 1,200 mg PO BID #0 tab.er 03/19/17 [Last Taken Unknown] Discharge Medications: Refer to the Discharge Home Medication list for PRN reason. - Orders Diet Recommendation: no restrictions on diet Diet Texture: Regular Texture Diet - Follow Up Care Current Providers and Referrals: BRANDI HAJI [Non Staff Provider ()] - As per Instructions
--- NOTE | 2017-03-19 13:10 | GDS ---
[f rep st] DISCHARGE SUMMARY DISCHARGE DIAGNOSES: 1. Acute hypoxemic respiratory failure due to healthcare-associated pneumonia. 2. Diastolic heart failure with volume overload. 3. Chronic kidney disease. 4. Pulmonary hypertension. 5. Urinary tract infection with hematuria. 6. Hyperkalemia, resolved. 7. Schizophrenia. 8. Hypertension. CONSULTANTS DURING HOSPITAL STAY: Pulmonary/Critical Care. HOSPITAL COURSE AND STAY BY PROBLEM: Acute hypoxemic respiratory failure: The patient presented to the hospital on 03/04/2017 with shortness of breath. He was subsequently diagnosed with healthcare-a ssociated pneumonia. He was in the ICU and was quite sick and was placed on BiPAP. He has since com pleted 7 days of cefepime and azithromycin. The past few days, the patient has still required high-f low O2 at 8 L/minute via Oxymizer. On day of discharge, the patient states he feels much better. He has been using an Acapella device and was able to clear some secretions. His oxygen saturations are now in the 90s on 4 L. He tells me that he would like to be discharged from the hospital. PHYSICAL EXAM: VITAL SIGNS: On day of discharge, blood pressure 98/51, pulse 57, respiratory rate 1 8, O2 saturation 93% on 4 L, temperature afebrile. GENERAL: No acute distress. HEART: S1, S2. ERIK NGS: Clear. No wheezes, rales, or rhonchi. ABDOMEN: Soft. EXTREMITIES: Trace edema. PERTINENT LABS AND STUDIES: Echocardiogram done 03/04/2017. Refer to report. Chest CT done 018 revealed bilateral lower lobe pneumonia with mediastinal lymphadenitis. Repeat CT was recommende d in 3 months. Myocardial perfusion scan done 03/14/2017 was limited due to the patient's dyspnea. The patient refused to complete the stress test. Outpatient stress test should be considered. DISCHARGE MEDICATIONS: Please refer to discharge medication reconciliation in [employer] for details. DISCHARGE INSTRUCTIONS: The patient will be discharged back to his [facility] facility. He fatou amandad have repeat imaging of the chest to re-evaluate for mediastinal lymphadenitis seen on the CAT sca n done this hospital stay. Repeat imaging should be done in 3 months. Should also follow up at [facility] for a Lexiscan. Greater than 30 minutes were spent on the discharge of this patient. /[id number]/MODL
[2017-03-19 14:16] VITALS: BP 121/73; PULSE 52
--- NOTE | 2017-03-19 16:26 | SOAPPROG ---
SOAP Progress Note Assessment/Plan: Assessment: 66 M with history of schizophrenia and lives at [facility], admitted 03/04/17 with significant respiratory distress. * Acute respiratory failure with hypoxemia- clearly elements of both PNA and volume overload with elevated BNP, but EF 60% and no diastolic dysfunction on echo. BNP improved. O2 needs down from 15 now to 6 liters/minute. Probably has underlying sleep apnea but not using bipap, though that would help with O2. * PNA- Completed CTX. Still with central congestion but he has a good cough. * UTI- S/P Rx with Cefepime, CTX. * Renal insufficiency-BUN and creatinine both up somewhat today. Will follow. * DEMARCUS- will need outpatient sleep study. Would use bipap qhs for now as tolerated, but he's not compliant Plan: Discharge back to [facility] today. Continue oxygen at [facility], bronchodilator therapies, I would be happy to see him in follow-up in the office if needed. The patient states he would rather follow up with physicians at [facility]. Subjective: Feels better. Shortness of breath is significantly improved. No significant cough or mucus. Oxygen needs down to 4 L. Objective: Vital Signs Temp Pulse Resp BP Pulse Ox 36.7 C 52 L 18 121/73 H 93 03/19/17 11:41 03/19/17 14:14 03/19/17 11:41 03/19/17 14:14 03/19/17 11:41 Laboratory Results 03/18/17 05:25 03/18/17 05:25 03/18/17 03/19/17 03/20/17 05:59 05:59 05:59 Intake Total 2660 1500 Balance 2660 1500 PT 13.1 SEC (12.0-15.0) 03/04/17 06:00 INR 0.97 (0.83-1.16) 03/04/17 06:00 Physical Exam - Physical Exam General Appearance: alert, no apparent distress, obese EENT: other (Nasal cannula oxygen down to 4 L) Neck: normal inspection Respiratory: lungs clear (Anteriorly), decreased breath sounds (At bases), prolonged expiration, No rales, No rhonchi Cardiac/Chest: bradycardia (Sinus) Abdomen: normal bowel sounds, non-tender, soft Skin: normal color, warm/dry Extremities: pedal edema (Trace +comma a chronic changes, erythema improved) Neuro/Psych: no motor/sensory deficits (Moves all extremities equally, but weak) , cognition abnormalities (Underlying schizophrenia, appears to be a baseline) ICD10 Worksheet Patient Problems: Problems Problem Status Onset CHF (congestive heart failure) Acute Hypoxia Acute Respiratory distress Acute chronic disease mgmt/ transitional care Acute
--- NOTE | 2017-03-19 17:28 | ASDISCHSUM ---
Discharge Information Plan Status:SNF Medically Cleared to Leave:03/18/2017 Discharge Date:03/19/2017 02:52 PM CM D/C Disposition:[facility] Facility ADT D/C Disposition:[facility] Facility Projected Discharge Date:03/12/2017 11:00 AM Transportation at D/C:Wheelchair Van Discharge Delay Reason: Follow-Up Date:03/12/2017 11:00 AM Discharge Slot: Final Diagnosis: Placement Information Referral Type:*Correction/SNF Referral ID:[id number] Provider Name:Gina Bah [place] Address 1:[address] Address 2: City:[place] Selection Factors: State:[place] Patient Contact Information Contact Name:JODI Relationship:Other Address:[address] Home Phone: City:[place] Alternate Phone: State/Zip Code:[place] [address] Email: Financial Information Financial Class: Primary Plan Desc:MEDICARE INPATIENT Primary Plan Number:[id number] Secondary Plan Desc:MED[place] Secondary Plan Number:[id number] Assessment Information [facility] CM Progress Note CM Note CM Note Notes: Patient admitted for respiratory failure, most likely r/t decompensated heart failure. He's being treated for that, as well as presumed CA PNA. He lives at [facility] and has a PMHx significant for schizophrenia. I called his brother Raul Warren ([phone]) to inform him of patient's hospitalization; Raul says he will come to see patient tomorrow. IT would be zepeda to have someone speak with Raul when he is here about patient's MOST form/MDPOA since patient may not be capable of making his own decisions. CM will follow and assist with any discharge needs. Date Signed: 03/04/2017 02:53 PM Electronically Signed By:Jennifer Lim RN [facility] CM Progress Note CM Note CM Note Notes: Patient From admitted with heart failure and PNA. He is on antibiotics and high flow oxygen. Normally chairbound at [facility] but SBA for transfers. Plan to return to [facility] when medically stable. Date Signed: 03/07/2017 12:57 PM Electronically Signed By:Alyse Dickerson RN [facility] CM Progress Note CM Note CM Note Notes: 03/10/2017 Case Management Note Faxed hospital notes and updates to [facility]. Case Management d/c poc: return to [facility] where pt resides. Case Management to follow. Date Signed: 03/10/2017 10:33 AM Electronically Signed By:Sangita Smith RN [facility] Progress Note CM Note CM Note Notes: CM spoke w/ OT and they are recommending SNF. CM left a msg for Guille at [facility] inquiring if it would be a possibility for pt to get rehab. Pt will ultimately return back to [facility]. CM to follow. Plan: [facility] Date Signed: 03/11/2017 02:58 PM Electronically Signed By:CARLOS ALBERTO Fair [facility] Progress Note CM Note CM Note Notes: 03/12/2017 Case Management Note Spoke with Guille from [facility] [phone]. [facility] able to take pt back at d/c and can start PT services [facility] at the [facility] facility if needed. Guille requested that medicaid transport be arranged at d/c. Faxed updates via [employer]. There is no need for a PASSR or ULTC 100 d/t pt resident status at [facility] per Guille. Case Management d/c poc: return to [facility] with follow up as directed. Case Management to follow. Date Signed: 03/12/2017 12:53 PM Electronically Signed By:Sangita Smith RN [facility] Progress Note CM Note CM Note Notes: [facility] spoke w/ RENE Reyna regarding d/c POC. CM sent [facility] updates. Pt will d/c back to [facility] once medically stable. CM to follow. Plan: [facility] SN[facility] Date Signed: 03/15/2017 10:36 AM Electronically Signed By:CARLOS ALBERTO Fair [facility] Length of stay for Answers: 14 days or more current admission Acuity / Level of Care Answers: Was the patient admitted to hospital via the emergency department? Yes: Comorbidities - select Answers: Cerebrovascular disease all that apply Peripheral vascular disease Congestive heart failure Chronic pulmonary disease Moderate or severe liver disease or renal disease Emergency dept visits in Answers: 0 last 6 months Score: 20 Date Signed: 03/19/2017 02:20 PM Electronically Signed By:Sangita Smith RN Case Management Discharge Plan Note Case Management Discharge Discharge Order Complete? Answers: Yes Patient to Obtain Answers: Other Notes: Gina Ring to provide Medications Transportation Arranged Answers: [facility] W/C Transport will Pick (Date 03/19/2017 03:00 PM & Time) Case Management Transport Answers: Yes Notes: used new [facility] form Form Complete Faxed Final Orders Answers: Yes Notes: and sent hard copies [facility] patient Agency/Facility Transfer Answers: Yes Report Printed & Faxed to Receiving Agency Family Notified Answers: No Discharge Comments Notes: 03/19/2017 Case Management Note Nohemi denied auth for transport through [facility]. Department Store Salesperson of and [facility] aware of denied authorization. Per vice president of talent management [facility] to transport pt at 1500 in w/c with O2. Faxed all d/c paperwork through all scripts and sent hard copies to facility. Guille morales. RENE called report. Date Signed: 03/19/2017 02:24 PM Electronically Signed By:Sangita Smith RN Intervention Information Intervention Type:*IM-Signed Date of Service:03/19/2017 02:10 PM Patient Type:Inpatient Staff Member:Shaila Johnson Hours: Discipline: Severity: Comment:
== END 2017-03-19 14:52 | DRG 193 ==
LOC: EDUNIT# → UNDOADMIN 07:11 → F2N 08:41 → F2W 03-09 21:24
PROVIDERS: ADMIT Family Medicine; ATTEND Family Medicine
PROC: 02HV33Z Insertion of Infusion Device into Superior Vena Cava, Percutaneous Approach (ICD-10-PCS; principal; 2017-03-05)
DX: J18.9 Pneumonia, unspecified organism (principal); J96.01 Acute respiratory failure with hypoxia; I50.30 Unspecified diastolic (congestive) heart failure; N17.9 Acute kidney failure, unspecified; N18.9 Chronic kidney disease, unspecified; N39.0 Urinary tract infection, site not specified; R31.9 Hematuria, unspecified; G47.33 Obstructive sleep apnea (adult) (pediatric); L89.612 Pressure ulcer of right heel, stage 2; E87.1 Hypo-osmolality and hyponatremia; E87.5 Hyperkalemia; E87.4 Mixed disorder of acid-base balance; J44.9 Chronic obstructive pulmonary disease, unspecified; G89.29 Other chronic pain; E66.9 Obesity, unspecified; I25.10 Atherosclerotic heart disease of native coronary artery without angina pectoris; I27.29 Other secondary pulmonary hypertension; K21.9 Gastro-esophageal reflux disease without esophagitis; F20.9 Schizophrenia, unspecified; Z99.3 Dependence on wheelchair
CPT/HCPCS: 82947-QW; 96374; 97116-GP; 97161-GP; 97165-GO; 97530-GO; 97530-GP; 97535-GO; A9500; C1751; G8978-GP-CL; G8979-GP-CJ; G8987-GO-CJ; G8988-GO-CI; J0456; J0692; J0696; J1940; J2785; J3370; J7512; J7608; J7613

== ENCOUNTER 2017-03-23 03:11 | Inpatient (IN) | payer OTHER, MEDICAID ==
[2017-03-23] MEDS ORDERED: IPRATROPIUM/ALBUTEROL 3 ML DEYVIAL IH ONE (03:15)
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
[2017-03-23 03:29] LABS: PLATELET COUNT 283 10^3/uL (150-400)
--- NOTE | 2017-03-23 03:35 | CPEKG ---
Heart Rate: 54 RR Interval: 1111 P-R Interval: 172 QRSD Interval: 106 QT Interval: 456 QTC Interval: 433 P [place]: 43 QRS [place]: 52 T Wave [place]: 46 EKG Severity - NORMAL ECG - EKG Impression: SINUS RHYTHM Electronically Signed By: Preeti Leary 23-Mar-2017 06:40:14
[2017-03-23] MEDS ORDERED: traMADol 50 MG TAB PO ONE (04:04)
[2017-03-23] MEDS ORDERED: traMADol 50 MG TAB ONE (04:05)
[2017-03-23] MEDS ORDERED: CEFEPIME HCL 1 GM in STERILE WATER INJ 11.3 ML IV ONE (04:10)
[2017-03-23] MEDS ORDERED: AZITHROMYCIN IV 500 MG in D5W 250 ML IV ONE (04:11)
[2017-03-23] MEDS ORDERED: ONDANSETRON 4 MG/2 ML VIAL IVP PRN (04:57)
[2017-03-23] MEDS ORDERED: ONDANSETRON DISINTEGRATING 4 MG TAB PO PRN (04:57)
[2017-03-23] MEDS ORDERED: ALBUTEROL 3 ML DEYVIAL IH PRN (05:16)
--- NOTE | 2017-03-23 05:34 | PDGENHP ---
History and Physical - Chief Complaint Shortness of breath - History of Present Illness 66 yo M w/ schizophrenia, DEMARCUS/OHS, hypoxic respiratory failure brought in from [place] with shortness of breath. Patient was discharged from the hospital on 03/18 after treatment for HCAP with 7 day course of Cefepime. He explains he was doing well until last evening when he began to have increased work of breath. This was improved after a breathing treatment in the ED. However, his oxygen needs have increased from a reported baseline of 4 L/min O2 to 8-10 L currently. He denies fevers, chills, night sweats. He also denies cough expect for when he is receiving a breathing treatment. He is complaining of bilateral ankle pain from mild swelling. History Information - Allergies/Home Medication List Allergies/Adverse Reactions: No Known Allergies Allergy (Verified 03/23/17 03:19) Home Medications: Diltiazem HCl [Taztia Xt] 360 mg PO DAILY 08/12/09 [Last Taken 03/03/17] ARIPIPRAZOLE [Abilify 20mg] 20 mg PO DAILY 03/04/17 [Last Taken 03/03/17] Acetaminophen [Tylenol 325mg (*)] 650 mg PO Q6H PRN 03/04/17 [Last Taken ] Ascorbic Acid [Vitamin C 500 mg (*)] 500 mg PO DAILY 03/04/17 [Last Taken ] Bisacodyl [Dulcolax] 10 mg RC DAILY PRN 03/04/17 [Last Taken Unknown] Fluticasone Nasal [Flonase Nasal Bad Axe] 1 sprays NASAL DAILY 03/04/17 [Last Taken 03/03/17] Furosemide [Lasix 40 MG (*)] 40 mg PO DAILY 03/04/17 [Last Taken 03/03/17] Magnesium Hydroxide/Al Hydrox [Mylanta Liquid] 20 ml PO Q4H PRN 03/04/17 [Last Taken Unknown] Metoprolol Succinate Xr [Toprol Xl 25 mg (*)] 25 mg PO DAILY 03/04/17 [Last Taken 03/03/17] Multivitamins [Multivitamin (*)] 1 each PO DAILY 03/04/17 [Last Taken 03/03/17] Perphenazine [Trilafon 8mg (*)] 8 mg PO BID 03/04/17 [Last Taken 03/03/17] Polyethylene Glycol 3350 [Miralax 17 gm (*)] 17 gm PO DAILY 03/04/17 [Last Taken 03/03/17] Potassium Chloride [Klor-Con M20] 20 meq PO DAILY 03/04/17 [Last Taken 03/03/17] Sennosides/Docusate Sodium [Senokot-S] 2 each PO BID 03/04/17 [Last Taken ] Sodium Chloride [Saline Nose Bad Axe] 1 spray NS Q4H PRN 03/04/17 [Last Taken Unknown] Tamsulosin HCl [Flomax 0.4 MG (*)] 0.4 mg PO DAILY 03/04/17 [Last Taken 03/03/17 ] clonIDINE [Catapres (*)] 0.2 mg PO BID 03/04/17 [Last Taken 03/03/17] traMADol [Ultram 50 mg (*)] 50 mg PO QID 03/04/17 [Last Taken 03/03/17] I have personally reviewed and updated: family history, medical history - Past Medical History Additional medical history: Schizophrenia. DEMARCUS/OHS. CHRF - On 4 L/min O2 @ baseline. CKD - Family History Positive for: cancer - Social History Smoking Status: Heavy smoker Review of Systems Review of Systems: ROS: 10pt was reviewed & negative except for what was stated in HPI & below Physical Exam Physical Exam: Temp Pulse Resp BP Pulse Ox 36.5 C 62 22 H 160/59 H 89 L 03/23/17 05:19 03/23/17 05:19 03/23/17 05:19 03/23/17 05:19 03/23/17 05:19 O2 (L/minute) 9 Constitutional: obese, uncomfortable Eyes: PERRL, EOMI Ears, Nose, Mouth, Throat: moist mucous membranes, no oral mucosal ulcers Cardiovascular: regular rate and rhythym, systolic murmur, edema (1+ bilateral ALEX) Respiratory: no respiratory distress, reduced air movement, rhonchi Gastrointestinal: normoactive bowel sounds, soft, non-tender abdomen, distension Skin: warm, other (b/l ALEX changes c/w chronic venous stasis) Neurologic: AAOx3, CN II-XII Intact Psychiatric: interacting appropriately, not anxious Lab Data & Imaging Review 03/23/17 03:26 03/23/17 03:26 WBC 18.48 10^3/uL (3.80-9.50) H 03/23/17 03:26 RBC 3.64 10^6/uL (4.40-6.38) L 03/23/17 03:26 Hgb 11.8 g/dL (13.7-17.5) L 03/23/17 03:26 Hct 34.9 % (40.0-51.0) L 03/23/17 03:26 MCV 95.9 fL (81.5-99.8) 03/23/17 03:26 MCH 32.4 pg (27.9-34.1) 03/23/17 03:26 MCHC 33.8 g/dL (32.4-36.7) 03/23/17 03:26 RDW 14.0 % (11.5-15.2) 03/23/17 03:26 Plt Count 283 10^3/uL (150-400) 03/23/17 03:26 MPV 9.4 fL (8.7-11.7) 03/23/17 03:26 Neut % (Auto) 39.6 % (39.3-74.2) 03/23/17 03:26 Lymph % (Auto) 54.4 % (15.0-45.0) H 03/23/17 03:26 [place] % (Auto) 2.9 % (4.5-13.0) L 03/23/17 03:26 Eos % (Auto) 1.2 % (0.6-7.6) 03/23/17 03:26 Baso % (Auto) 0.3 % (0.3-1.7) 03/23/17 03:26 Nucleat RBC Rel Count 0.0 % (0.0-0.2) 03/23/17 03:26 Absolute Neuts (auto) 7.30 10^3/uL (1.70-6.50) H 03/23/17 03:26 Absolute Lymphs (auto) 10.06 10^3/uL (1.00-3.00) H 03/23/17 03:26 Absolute Monos (auto) 0.54 10^3/uL (0.30-0.80) 03/23/17 03:26 Absolute Eos (auto) 0.23 10^3/uL (0.03-0.40) 03/23/17 03:26 Absolute Basos (auto) 0.06 10^3/uL (0.02-0.10) 03/23/17 03:26 Absolute Nucleated RBC 0.00 10^3/uL (0-0.01) 03/23/17 03:26 Immature Gran % 1.6 % (0.0-1.1) H 03/23/17 03:26 Immature Gran # 0.29 10^3/uL (0.00-0.10) H 03/23/17 03:26 D-Dimer 1.60 ug/mLFEU (0.00-0.50) H 03/23/17 03:26 Sodium 135 mEq/L (135-145) 03/23/17 03:26 Potassium 5.3 mEq/L (3.5-5.2) H 03/23/17 03:26 Chloride 101 mEq/L (97-110) 03/23/17 03:26 Carbon Dioxide 20 mEq/l (22-31) L 03/23/17 03:26 Anion Gap 14 mEq/L (8-16) 03/23/17 03:26 BUN 71 mg/dL (7-23) H 03/23/17 03:26 Creatinine 2.4 mg/dL (0.7-1.3) H 03/23/17 03:26 Estimated GFR 27 03/23/17 03:26 Glucose 112 mg/dL (70-100) H 03/23/17 03:26 Calcium 8.9 mg/dL (8.5-10.4) 03/23/17 03:26 Troponin I < 0.012 ng/mL (0.000-0.034) 03/23/17 03:26 NT-Pro-B Natriuret Pep 537 pg/mL (0-125) H 03/23/17 03:26 Nasal Influenza A PCR NEGATIVE FOR FLU A (NEGATIVE) 03/23/17 03:50 Nasal Influenza B PCR NEGATIVE FOR FLU B (NEGATIVE) 03/23/17 03:50 RSV (PCR) NEGATIVE FOR RSV (NEGATIVE) 03/23/17 03:50 Visualized and Interpreted Chest x-ray results: Yes Chest X-Ray results: other (Poor inspiration, compressive atelectasis and possible R-sided infiltrate, hilar adenopathy noted as well) Visualized and Interpreted EKG results: Yes EKG Interpretation: Positive for: normal sinsus rhythm Assessment & Plan Assessment: 66 yo M w/ schizophrenia, DEMARCUS/OHS, CHRF on 4 L O2 chronically presents with hypoxia and shortness of breath. Plan: 1. Acute on chronic hypoxic respiratory failure - Currently requiring 8-10 L/ min O2, baseline reported as 4 L/min. Trigger is not entirely clear; possibilities include recurrent pneumonia, PE, and other process such as malignancy or interstitial disease. CHF exacerbation is another possibility but I deem this less likely noting lack of curt edema on CXR and recent TTE that showed pHTN but normal LVEF and normal diastolic function. - Will continue HCAP coverage with Cefepime (dose adjusted for renal function: 2g q24h) and azithromycin - it is possible inability to expand chest due to body habitus led to reaccumulation of infection - Blood cultures, respiratory PCR, and procalcitonin ordered - IS, flutter valve, pulmonary hygiene ordered - D-dimer elevated, will evaluate with VQ scan and b/l LE US - Continue nighttime CPAP - Albuterol IH q2h PRN 2. Leukocytosis - Possibly 2/2 recurrent pneumonia, but review of recent labs reveals persistently elevated WBC with lymphocytic predominance. In fact, WBC jeri during last hospitalization despite antibiotic treatment. - Monitor CBC 3. Mediastinal lymphadenitis - Noted on CT scan during most recent admission; radiology recommended 3 month follow up imaging at that time. 4. CKD - Serum creatinine 2.4 on admission, seems to be near baseline. Avoid nephrotoxic agents and monitor BMP, renally dose meds. 5. Hyperkalemia - K 5.3 on admission with no ECG changes. Albuterol PRN, renal diet, and monitor BMP. 6. Schizophrenia - Appears well compensated at this time, needs med reconciliation. Diet - Renal Code - Full Ppx - SQH Dispo - Admit to SDU under observation status
[2017-03-23] MEDS: HEPARIN 5,000 UNIT/0.5 ML SYR SC SCH ×3 (06:26→21:12)
[2017-03-23] MEDS: oxyCODONE IR 5 MG TAB PO PRN ×2 (08:40→17:01)
[2017-03-23] MEDS ORDERED: ENOXAPARIN 40 MG/0.4 ML SYR SC SCH (09:00)
--- NOTE | 2017-03-23 09:22 | HOSPPROG ---
Hospitalist Progress Note Assessment/Plan: #Acute on chronic hypoxemic resp failure -question aspiratiom with RML infiltrate. Completed 7day HCAP abx recently. Echo 03/06 showed mod pulm HTN, diastolic HF. Negative procalcitonin, resp PCR -negative leg dopplers and V/Q scan -was started empirically on Tamiflu at [place] with outbreak of flu there; negative here so stop it -no overt edema on xray. Resume home Lasix there #Diastolic HF: resume home lasix #Moderate pulm HTN: likely due to extensive PNA. Repeat echo when acute infection resolves #CKD: at [facility] #Schizophrenia: resume home meds #HTN: on Dilt and BB. Resume dilt, hold BB with bradycardia #DVT ppx: SQH Subjective: breathing better. Legs have been swollen for several months, but better after recent hospitalization Objective: Vital Signs Temp Pulse Resp BP Pulse Ox 36.3 C 56 L 17 138/60 H 93 03/23/17 07:39 03/23/17 07:39 03/23/17 07:39 03/23/17 07:39 03/23/17 07:39 - Physical Exam Constitutional: no apparent distress Eyes: PERRL Ears, Nose, Mouth, Throat: moist mucous membranes Cardiovascular: regular rate and rhythym, no murmur, rub, or gallop, edema (+2- 3 edema to shins) Respiratory: inspiratory crackles, rhonchi Gastrointestinal: normoactive bowel sounds, soft, non-tender abdomen Genitourinary: no bladder fullness Skin: warm Musculoskeletal: full muscle strength Neurologic: AAOx3, CN II-XII Intact Psychiatric: interacting appropriately ICD10 Worksheet Patient Problems: Problems Problem Status Onset Acute exacerbation of congestive heart failure Acute Chronic renal disease Acute Elevated d-dimer Acute Hypoxia Acute Pneumonia Acute CHF (congestive heart failure) Acute Respiratory distress Acute chronic disease mgmt/ transitional care Acute
[2017-03-23] MEDS ORDERED: SODIUM CL NASAL 45 ML BTL NS PRN (10:37)
[2017-03-23] MEDS: traMADol 50 MG TAB PO SCH ×3 (11:29→21:12)
[2017-03-23] MEDS ORDERED: MAG HYDROX/AL HYDROX/SIMETH 30 ML UDCUP PO PRN (11:30)
[2017-03-23] MEDS: TAMSULOSIN HCL 0.4 MG CAP PO SCH (11:38)
[2017-03-23] MEDS: ARIPiprazole 10 MG TAB PO SCH (11:38)
[2017-03-23] MEDS: DILTIAZEM CD 180 MG CAP PO SCH (11:41)
[2017-03-23] MEDS: FUROSEMIDE 40 MG TAB PO SCH (14:10)
[2017-03-23] MEDS: MUPIROCIN 2% 22 GM OINT TP SCH ×2 (15:26→22:00)
--- NOTE | 2017-03-23 15:33 | PDMN ---
Medical Necessity Medical necessity: C/M review: est. > 2 MN LOS for eval and TX or acure and persistent hypoxemis respiratory failure of unclear etiology, questionable aspiration with RML infiltrate on CXR, requiring ongoing IV Cefepime, pulse oximetry, high O2 requirements 15-10 L/min via oxymask in ICU comorbid diastolic heart failure, secere pulmonary hypertension, chronic kidney disease, schizophrenia, hypertension, patient completed 7 day course of HCAP antibiotics recently per H/P.
--- NOTE | 2017-03-23 15:44 | ASMTCMCOM ---
CM Note CM Note Notes: Patient sent to [facility] from [place] where he lives for shortness of breath and cough. He was last discharged from [facility] 03/18 on antibiotics and Oxygen. He has been on 4L NC for the last two weeks. He has underlying CHF I anticipate that patient will discharge back to [facility] when he is medically stable. CM available to help with any discharge needs. Date Signed: 03/23/2017 03:43 PM Electronically Signed By:Jennifer Lim RN
[2017-03-23] MEDS: ACETAMINOPHEN 325 MG TAB PO PRN (17:26)
[2017-03-23] MEDS: AMPICILLIN/SULBACTAM 3 GM in NS 100 ML IV SCH (17:26)
--- NOTE | 2017-03-23 18:53 | GCON ---
[f rep st] CONSULTATION PULMONARY CRITICAL CARE CONSULTATION DATE OF CONSULTATION: 03/23/2017 REASON FOR CONSULTATION: Acute hypoxemia and respiratory failure associated with new right lower lob e infiltrate. HISTORY: The patient is well known to our service. He recently had a prolonged hospitalization at [facility], admitted on 03/04 and discharged several days ago. He was seen both by Doctors Cy whitaker and Mickey when he was in the intensive care unit. He had pneumonia on that recent admission as w ell as congestive heart failure secondary to diastolic dysfunction. Other problems include chronic p ulmonary hypertension and renal insufficiency. He has underlying schizophrenia. With a previous hos pitalization, he did require BiPAP but was not intubated. He was treated with cefepime and azithromy sanya. Following his discharge he apparently did well for several days and became subacutely short of breath over the last 24 hours or so. He presented to the emergency department. He was given a breathing t reatment there. It was noted that his oxygen requirements were up to approximately 10 L. His baseli ne is 4 L. He did have some cough but was not bringing up any mucus. He denied fevers, chills, or s weats. Chest x-ray does show a new right lower lung zone infiltrate. V/Q scan was done and is low p robability for pulmonary embolism. There is a matching defect at the right base. He denies known as piration. He has been admitted to the intensive care unit. He is being treated with bronchodilator therapy. He had been started on azithromycin and cefepime initially. He has been switched to Unasyn to cover aspiration. PAST MEDICAL HISTORY: Remarkable for schizophrenia. He has a history of obstructive sleep apnea, ch ronic hypoxemia, pulmonary hypertension, and chronic renal insufficiency. Other problems include more stolic dysfunction, chronic pain, lower extremity weakness and pain, systemic hypertension, and prost atism. He was recently started on Tamiflu secondary to other individuals at his nursing facility wit h influenza A. However, by PCR on this admission he is negative for influenza. DRUG ALLERGIES: No known drug allergies. FAMILY HISTORY: Noncontributory. REVIEW OF SYSTEMS: A 10-point review of systems is negative except as noted above in the HPI. PHYSICAL EXAMINATION: GENERAL: The patient is sitting comfortably in bed. He is in no respiratory distress. Oxygen is in place at 10 L by OxyMask with saturations of 92%. VITAL SIGNS: He is afebri le. Respiratory rate is approximately 20. Blood pressure 150/57, heart rate 78, with sinus rhythm o n the monitor. HEENT: Remarkable for a large neck. There is no stridor. There is no obvious jugula r venous distention, thyromegaly, or lymphadenopathy. Mucous membranes appear moist without obvious pharyngitis. CHEST: Reveals decreased breath sounds bilaterally with some bibasilar rales, right gr eater than left. Mild consolidative changes are present at the right base. HEART: Regular in rate and rhythm. There is a distant systolic murmur, no obvious gallop. ABDOMEN: Obese, soft, nontender . Bowel sounds are present. ASSESSMENT: 1. Acute respiratory failure associated with hypoxemia and increased dyspnea. He does have a new in filtrate at the right base. This raises the question of aspiration. He was recently in the hospital and treated completely for pneumonia. Aspiration needs to be excluded. 2. Congestive heart failure secondary to diastolic dysfunction. This appears to be stable at the pr esent time. BNP is not significantly elevated on this admission, and edema seems to be at baseline. There is no evidence of acute coronary disease. Diuresis does need to be continued. 3. Renal insufficiency. Appears to be close to baseline. 4. Probable obstructive sleep apnea. He will need evaluation for this in the future. 5. Recent urinary tract infection. 6. Obesity/hypoventilation. Baseline pCO2 appears to be approximately 40 or slightly higher. 7. Chronic renal insufficiency. Appears to be close to his baseline. BUN is 60 with a creatinine 2 .2. His best recent BUN and creatinine were 48 and 1.9 respectively. PLAN AND RECOMMENDATIONS: The patient will be initially treated in the intensive care unit. Unasyn will be continued. Bronchodilator therapies will be given and bronchopulmonary therapies will be enc ouraged. Usual medications will be continued. A cine barium swallow will be ordered during this adm ission. Laboratory and chest x-ray will be followed intermittently. Further plans recommendations will be made based on his progress over the next 12-24 hours. /[id number]/MODL
[2017-03-23] MEDS: PERPHENAZINE 8 MG TAB PO SCH (21:12)
[2017-03-23] MEDS: guaiFENesin 600 MG TAB.ER PO SCH (21:12)
[2017-03-23] MEDS: SENNOSIDES/DOCUSATE SODIUM TAB PO SCH (21:12)
[2017-03-23] MEDS: NYSTATIN 15 GM OINTMENT TP SCH (22:00)
[2017-03-24] MEDS ORDERED: VANCOMYCIN HCL/NORMAL SALINE 250 ML IV SCH (02:00)
[2017-03-24] MEDS: oxyCODONE IR 5 MG TAB PO PRN ×3 (03:19→13:50)
[2017-03-24] MEDS: MUPIROCIN 2% 22 GM OINT TP SCH ×3 (05:40→17:53)
[2017-03-24] MEDS: HEPARIN 5,000 UNIT/0.5 ML SYR SC SCH ×3 (05:47→22:00)
[2017-03-24] MEDS: traMADol 50 MG TAB PO SCH (05:47)
[2017-03-24] MEDS: AMPICILLIN/SULBACTAM 3 GM in NS 100 ML IV SCH ×4 (05:48→17:07)
[2017-03-24] MEDS ORDERED: CEFEPIME HCL 2 GM in STERILE WATER INJ 12.5 ML IV SCH (06:00)
[2017-03-24] MEDS: ACETAMINOPHEN 325 MG TAB PO PRN ×2 (07:43→13:50)
[2017-03-24] MEDS: METOPROLOL SUCCINATE XR 25 MG TAB PO SCH (07:45)
[2017-03-24] MEDS: ARIPiprazole 10 MG TAB PO SCH (07:46)
[2017-03-24] MEDS: FUROSEMIDE 40 MG TAB PO SCH (07:46)
[2017-03-24] MEDS: PERPHENAZINE 8 MG TAB PO SCH ×2 (07:47→20:47)
[2017-03-24] MEDS: guaiFENesin 600 MG TAB.ER PO SCH ×2 (07:47→20:47)
[2017-03-24] MEDS: DILTIAZEM CD 180 MG CAP PO SCH (07:47)
[2017-03-24] MEDS: MULTIVITAMINS 1 EACH TAB PO SCH (07:47)
[2017-03-24] MEDS: TAMSULOSIN HCL 0.4 MG CAP PO SCH (07:48)
[2017-03-24] MEDS: SENNOSIDES/DOCUSATE SODIUM TAB PO SCH ×2 (07:48→20:47)
[2017-03-24] MEDS: POTASSIUM CL 20 MEQ TAB PO SCH (07:48)
[2017-03-24] MEDS: FLUTICASONE NASAL 120 SPRAYS/16 GM MDI EACHNARE SCH (07:48)
[2017-03-24] MEDS: ASCORBIC ACID 500 MG TAB PO SCH (07:48)
[2017-03-24] MEDS: POLYETHYLENE GLYCOL 3350 17 GM PKT PO SCH (07:49)
[2017-03-24] MEDS: NYSTATIN 15 GM OINTMENT TP SCH ×2 (07:51→21:00)
[2017-03-24] MEDS ORDERED: AZITHROMYCIN 250 MG TAB PO SCH (09:00)
--- NOTE | 2017-03-24 10:32 | HOSPPROG ---
Hospitalist Progress Note Assessment/Plan: #Acute on chronic hypoxemic resp failure -suspect aspiration PNA. Esophagram pending -Improved on Unasyn. Completed 7-day HCAP abx recently. -Echo 03/06 showed mod pulm HTN, diastolic HF. Negative procalcitonin, resp PCR -negative leg dopplers and V/Q scan -don't think volume overload is issue #Diastolic HF: resume home lasix #Severe pulm HTN: lasix #Leukocytosis: down to 11 today #Chronic pain: cont home meds. Bowel regimen #Coag neg positive cultures: suspect contaminant. Repeat #CKD: at [facility] #Schizophrenia: resume home meds #HTN: on Dilt and BB. Resume dilt, hold BB with bradycardia #DVT ppx: SQH Subjective: breathing improved today. "Legs hurt" Objective: Vital Signs Temp Pulse Resp BP Pulse Ox 36.8 C 70 30 H 155/55 H 85 L 03/24/17 07:57 03/24/17 07:57 03/24/17 07:57 03/24/17 07:57 03/24/17 07:57 Laboratory Results 03/24/17 05:12 03/24/17 05:12 03/23/17 03/24/17 03/25/17 05:59 05:59 05:59 Intake Total 2800 750 Balance 2800 750 - Physical Exam Constitutional: no apparent distress Eyes: PERRL Ears, Nose, Mouth, Throat: poor dentition Cardiovascular: regular rate and rhythym, no murmur, rub, or gallop, edema (+ 1 LE edema) Respiratory: reduced air movement, rhonchi, No inspiratory crackles Gastrointestinal: normoactive bowel sounds, soft, non-tender abdomen Genitourinary: no bladder fullness Skin: other (chronic venous skin changes, red, pallor, + 2 pedal pulses BL) Musculoskeletal: full muscle strength Neurologic: AAOx3, CN II-XII Intact Psychiatric: interacting appropriately ICD10 Worksheet Patient Problems: Problems Problem Status Onset Acute exacerbation of congestive heart failure Acute Chronic renal disease Acute Elevated d-dimer Acute Hypoxia Acute Pneumonia Acute CHF (congestive heart failure) Acute Respiratory distress Acute chronic disease mgmt/ transitional care Acute
--- NOTE | 2017-03-24 11:01 | GCON ---
[f rep st] CONSULTATION INFECTIOUS DISEASES CONSULT DATE OF CONSULTATION: 03/24/2017 REFERRING PHYSICIAN: Kobi Crews MD REASON FOR CONSULT: To assist in the management of this 66-year-old male, status post recent admission to [facility] for pneumonia, now readmitted for same. HISTORY OF PRESENT ILLNESS: The patient is a 66-year-old male, whose previous medical history is notable for the followin. Schizophrenia. 2. Hypertension. 3. Hyponatremia and hypokalemia. 4. GERD. 5. Polydipsia. Regarding his present issues, the patient has resided at [place] for the past 8 years. He was admitted to [facility] most recently from March 04 through March 19, when he presented with fevers and hypoxia. A chest CT performed showed bilateral lower lobe infiltrates with trace pleural effusions. He was admitted to the intensive care unit, and never intubated, but was placed on BiPAP. Antibiotics included azithromycin from 03/04 to 03/06 , cefepime from 03/04 to 03/08, ceftriaxone 1 g daily from 03/08 to March 13. He also received a dose of vancomycin upon admission. The patient ultimately improved, albeit slowly. Chest x-ray prior to discharge showed possible development of a new left retrocardiac pleural-parenchymal consolidation. The patient was discharged on March 19, back to [place], on no further antibiotics. Unfortunately, the patient re-presented to [facility] early yesterday morning with recurrent respiratory failure, and a question of an aspiration pneumonia, but with bilateral lower lobe infiltrates, but particularly right lower lobe. He was started on vancomycin and Unasyn. I am now asked to assist in his management. Of note, a VQ scan showed low probability of pulmonary embolism. He also had lower extremity noninvasive ultrasounds of the lower extremities that did not reveal any evidence of DVTs. He was admitted to the intensive care unit. In speaking with the patient today, he feels that he is getting better. He is coughing, but not really bringing anything up. His lower extremities are causing him some discomfort because of swelling, but he denies diarrhea, nausea or vomiting. He states that he does not recall choking on any food. REVIEW OF SYSTEMS: No abdominal pain. Aside from what is outlined above. Ten systems are reviewed and all are negative. PREVIOUS MEDICAL HISTORY: Is outlined above. ALLERGIES: No known drug allergies. MEDICATIONS: Presently include Unasyn 3 g IV q.6 hours and vancomycin 1 g IV q.24 hours. Please note, the patient was started on Tamiflu given a flu outbreak at [place], but his flu swab was negative here, therefore, this was discontinued. He is no longer taking this. He is also on Abilify 20 mg daily, vitamin C 50 mg daily, clonidine 0.2 mg p.o. b.i.d., diltiazem 360 mg p.o. daily, fluticasone , Lasix 40 mg p.o. daily, Mucinex, Toprol-XL 25 mg p.o. daily, multivitamin, Nystatin ointment, Zofran, MiraLAX and Flomax 0.4 mg p.o. daily, and Ultram. SOCIAL HISTORY: The patient lives at [facility]. He is a chronic heavy smoker. No alcohol or illicit substances. He is essentially bed bound, per the patient. He has no pets. No recent travel within or outside the [facility] or other unusual exposures. FAMILY HISTORY: Noncontributory. PHYSICAL EXAM: VITAL SIGNS: T-current is 36.8, T-max 37.1, heart rate 88, blood pressure 155/55, 85% on 6 L, 98% on 10 L by OxyMask. GENERAL: Obese gentleman, very pleasant, lying in bed, no apparent distress. Nontoxic appearing. HEENT: Atraumatic, normocephalic. Pinpoint pupils. No scleral icterus or petechiae. No sinus process tenderness. Mucous membranes are moist. No oral lesions noted. Poor dentition. NECK: Trachea midline. No cervical or supraclavicular lymphadenopathy. CARDIOVASCULAR: S1, S2. Difficult to hear heart sounds. LUNGS: Mildly increased respiratory effort. Decreased breath sounds bilateral lung bases, left greater than right. ABDOMEN : Obese, soft. No organomegaly or tenderness to palpation, but difficult exam. EXTREMITIES: Chronic venous stasis changes bilaterally with patchy erythema on the pretibial region, left greater than the right. Does not look consistent with cellulitis. 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 NEUROLOGIC: He is alert and oriented x3, and moving all 4 extremities. SKIN: Warm and dry. No rashes, other than what is outlined below in his lower extremities. LABORATORY DATA: Microbiologic data: Blood cultures x2 drawn on admission are growing 3/4 bottles of gram-positive cocci in clusters, consistent with coagulase-negative Staph. Respiratory PCR on March 23, negative. Flu swab was also negative. Previous laboratory data from his hospitalization in February showed respiratory panel PCR negative. Blood cultures at the time, that were negative on , and a sputum culture that showed mixed oral vel. He also had a urine culture at that time that showed 2 different types of E coli. RADIOGRAPHIC DATA: As outlined in the HPI. Also of note, the patient had an echocardiogram done on admission, March 04, that showed a trivial pericardial effusion, and elevated right ventricular systolic pressures at 58. The pulmonary artery pressure was also noted to be moderately increased. IMPRESSION: 66-year-old male with schizophrenia, who chronically resides at [facility] status post recent, almost 2 week admission to [facility] for pneumonia, now readmitted for what appears to be a prominent right lower lobe infiltrate concerning for aspiration event. He appears to be slightly improved on Unasyn. Given recent hospitalization and residence at [facility], resistant pathogens are of concern. If the patient decompensates, would broaden/change antibiotics, but for now, current regimen appears to be working. PLAN: 1. Continue Unasyn 3 g IV q.6 hours. The dose is fine based on renal insufficiency and this was double-checked with pharmacy. 2. Suspect methicillin-resistant Staphylococcus aureus pneumonia is less likely. We will discontinue vancomycin and follow him closely. Consider bronchoscopy if does not improve or decompensates. 3. Agree with swallow evaluation given possibility of aspiration event. 4. The patient is agreeable to an HIV antibody test, which I will order. 5. I do not feel that he needs atypical coverage at this point in time. 6. Regarding gram-positive cocci in clusters in blood cultures, suspect this could represent contamination, although 3/4 bottles are positive, which is more than usually expected with contamination. The patient had no prior PICC line, and does not have any hardware in place. Coagulase-negative staphylococcal and [place] valve endocarditis would be unlikely. Will repeat blood cultures in a sterile fashion. 7. Flu swab is negative. Thank you very much for consulting Infectious Diseases. We will continue to follow this patient with you. /[id number]/MODL MTDD
[2017-03-24] MEDS: traMADol 50 MG TAB PO PRN ×2 (12:29→17:07)
--- NOTE | 2017-03-24 14:23 | PDINTPN ---
Communication Specialist Progress Note Assessment/Plan: Assessment: 66-year-old gentleman with multiple medical problems and underlying schizophrenia. Readmitted for right lower lobe pneumonia. Was discharged from [facility] 4 days prior following treatment for pneumonia and congestive heart failure. Recurrent pneumonia. Possibly related to aspiration. Esophogram pending. On Unasyn and bronchodilator treatments. Clinically improved, O2 needs improved. Congestive heart failure/diastolic dysfunction. Appears to be stable. On Lasix. Chronic renal insufficiency. BUN and creatinine stable History of schizophrenia. On appropriate medications. Lives at [place]. History of other medical problems, stable. Prophylaxis: On subcu heparin. GI: Eating. Plan: Continue Unasyn and bronchopulmonary therapies. Await esophagram results. Increase mobilization as tolerated, out of bed with lift if needed. Continue supportive care, current medications. Id consult appreciated. Follow- up chest x-ray in a.m.. Follow laboratory. 30 min of critical care time spent directly with the patient. Subjective: Doing better, less short of breath. No cough or mucus Objective: Vital Signs Temp Pulse Resp BP Pulse Ox 36.8 C 70 30 H 155/55 H 85 L 03/24/17 07:57 03/24/17 07:57 03/24/17 07:57 03/24/17 07:57 03/24/17 07:57 Laboratory Results 03/24/17 05:12 03/24/17 05:12 03/23/17 03/24/17 03/25/17 05:59 05:59 05:59 Intake Total 2800 750 Balance 2800 750 Laboratory Tests 03/23/17 03:50 RSV (PCR) NEGATIVE FOR RSV Microbiology 03/23/17 04:53 Blood Blood Panel (PCR) - Final Staph Coagulase Negative 03/23/17 03:50 Nasal, Sinus - Swab Respiratory Panel (PCR) - Final No Organism Detected 03/23/17 04:53 Blood Blood Culture - Preliminary 03/23/17 04:53 Blood Gram Positive Cocci Clusters Physical Exam - Physical Exam General Appearance: alert, obese, No no apparent distress EENT: PERRL/EOMI, other (Nasal cannula at 6 L) Neck: normal inspection (Large neck. Difficult to estimate jugular venous pressure) Respiratory: lungs clear, decreased breath sounds (At bases. Scattered rales present, right greater than left.) Cardiac/Chest: regular rate, rhythm (Distant heart tones) Abdomen: non-tender, soft (Obese), No normal bowel sounds (Decreased but present ) Male Genitalia: other (Condom cath, incontinent. ?I/O) Skin: normal color, warm/dry Extremities: pedal edema Neuro/Psych: no motor/sensory deficits (Moves all extremities equally, weak), No cognition abnormalities (Appears to be a baseline) ICD10 Worksheet Patient Problems: Problems Problem Status Onset Pneumonia Acute Acute exacerbation of congestive heart failure Acute Elevated d-dimer Acute Chronic renal disease Acute chronic disease mgmt/ transitional care Acute Respiratory distress Acute CHF (congestive heart failure) Acute Hypoxia Acute
--- NOTE | 2017-03-24 15:19 | WOCRNPDOC ---
WOCRN Advanced Assessment Note - Skin Integrity Problem, Advanced Assess Left Posterior Knee Dressing Type: Open to Air Exudate Amount: None Sofia Wound Tissue: Blanching Wound Bed Color: Brown, Yellow Wound Bed Constitution: Scab Wound Edges: Well Defined Site Measurement - Head-to-Toe Length X Width X Depth (cm): [id number] Pressure Injury Stage: Unstageable, Special Systems Technician Related Pressure Injury Skin Integrity Problem Comment: Patient with a scabbed linear wound to the posterior knee. Patient is unsure about the source of the wound. RENE Mendez informed me that he has limited mobility and is confined to a wheelchair. I suspect that this wound is caused by pressure from the edge of the seat of his wheelchair. Will place orders to soften the scab on the wound. Wound care will round again later this week. Right Heel Pressure Injury Dressing Type: Open to Air Exudate Amount: None Sofia Wound Tissue: Blanching Wound Edges: Attached, Well Defined Site Measurement - Head-to-Toe Length X Width X Depth (cm): 3.7x2.4xintact Pressure Injury Stage: Deep Tissue Injury (DTI) Pressure Injury Present on Admit: Yes Skin Integrity Problem Comment: Patient rolled to right side with help of RENE Mendez. Wound noted to his right heel. Skin intact, dry and not currently open but wound has the appearance of a drained blister. Centrally, the wound bed is darkened purple which could be indicative of a DTI. Wound care will round again on this patient later this week.
[2017-03-25] MEDS: AMPICILLIN/SULBACTAM 3 GM in NS 100 ML IV SCH ×4 (00:30→17:15)
[2017-03-25] MEDS: traMADol 50 MG TAB PO PRN ×4 (01:25→21:23)
[2017-03-25 02:27] LABS: HIV TYPE 1 AND 2 NEGATIVE (NEGATIVE)
[2017-03-25] MEDS: HEPARIN 5,000 UNIT/0.5 ML SYR SC SCH ×3 (05:36→21:22)
--- NOTE | 2017-03-25 08:53 | PDINTPN ---
Junior Web Designer Progress Note Assessment/Plan: Assessment/Plan: * 66-year-old gentleman with multiple medical problems and underlying schizophrenia. Readmitted for right lower lobe pneumonia. Was discharged from [facility] 4 days prior following treatment for pneumonia and congestive heart failure. * Recurrent pneumonia. Possibly related to aspiration. Esophogram pending. Clinically improving -continue on Unasyn and bronchodilator treatments. * Acute respiratory failure secondary to pneumonia-still on 6 L -wean as tolerated * Congestive heart failure/diastolic dysfunction. Appears to be stable. On Lasix. * Chronic renal insufficiency. BUN and creatinine stable -follow * History of schizophrenia. On appropriate medications. Lives at [place]. * History of other medical problems, stable. * Prophylaxis: On subcu heparin. GI: Eating. * PT/OT * Out of bed * Disposition-likely stable for transfer to med surg. Will discuss with hospitalist Case discussed with nursing Subjective: Sitting up in bed. Comfortable. Breathing easily. Has no complaints Objective: Vital Signs Temp Pulse Resp BP Pulse Ox 36.9 C 66 19 137/59 H 90 L 03/25/17 07:54 03/25/17 07:54 03/25/17 07:54 03/25/17 07:54 03/25/17 07:54 Laboratory Results 03/25/17 05:10 03/25/17 05:10 03/24/17 03/25/17 03/26/17 05:59 05:59 05:59 Intake Total 2800 4840 Output Total 5150 Balance 2800 -310 Laboratory Results 03/25/17 05:10 03/25/17 05:10 03/23/17 03:50 Nasal Influenza A PCR NEGATIVE FOR FLU A Nasal Influenza B PCR NEGATIVE FOR FLU B RSV (PCR) NEGATIVE FOR RSV Chest [id number] myself reveals right lower lobe infiltrate as well on lower lower lobe infiltrate as well - Time Spent With Patient Time Spent With Patient: 25 min of time spent with patient-more than half spent in counseling and coordination of care Physical Exam - Physical Exam General Appearance: alert, no apparent distress EENT: PERRL/EOMI Neck: non-tender, full range of motion Respiratory: rhonchi (Bibasilar right greater than left), No respiratory distress, No accessory muscle use Cardiac/Chest: normal peripheral pulses, systolic murmur Abdomen: normal bowel sounds, non-tender, soft Male Genitalia: deferred Rectal: deferred Skin: normal color, warm/dry Extremities: normal range of motion, non-tender, normal inspection, normal capillary refill Neuro/Psych: alert, oriented x 3 ICD10 Worksheet Patient Problems: Problems Problem Status Onset Acute exacerbation of congestive heart failure Acute Chronic renal disease Acute Elevated d-dimer Acute Hypoxia Acute Pneumonia Acute CHF (congestive heart failure) Acute Respiratory distress Acute chronic disease mgmt/ transitional care Acute
[2017-03-25] MEDS ORDERED: OSELTAMIVIR PHOSPHATE 75 MG CAP PO SCH (09:00)
[2017-03-25] MEDS: TAMSULOSIN HCL 0.4 MG CAP PO SCH (09:05)
[2017-03-25] MEDS: DILTIAZEM CD 180 MG CAP PO SCH (09:06)
[2017-03-25] MEDS: guaiFENesin 600 MG TAB.ER PO SCH ×2 (09:06→21:23)
[2017-03-25] MEDS: POTASSIUM CL 20 MEQ TAB PO SCH (09:06)
[2017-03-25] MEDS: PERPHENAZINE 8 MG TAB PO SCH ×2 (09:06→21:22)
[2017-03-25] MEDS: ARIPiprazole 10 MG TAB PO SCH (09:07)
[2017-03-25] MEDS: FUROSEMIDE 40 MG TAB PO SCH (09:07)
[2017-03-25] MEDS: ASCORBIC ACID 500 MG TAB PO SCH (09:07)
[2017-03-25] MEDS: METOPROLOL SUCCINATE XR 25 MG TAB PO SCH (09:07)
[2017-03-25] MEDS: POLYETHYLENE GLYCOL 3350 17 GM PKT PO SCH (09:08)
[2017-03-25] MEDS: SENNOSIDES/DOCUSATE SODIUM TAB PO SCH ×2 (09:08→21:22)
[2017-03-25] MEDS: MULTIVITAMINS 1 EACH TAB PO SCH (09:08)
[2017-03-25] MEDS: MUPIROCIN 2% 22 GM OINT TP SCH ×3 (09:09→21:25)
[2017-03-25] MEDS: FLUTICASONE NASAL 120 SPRAYS/16 GM MDI EACHNARE SCH (09:10)
[2017-03-25] MEDS: NYSTATIN 15 GM OINTMENT TP SCH ×2 (09:10→21:25)
--- NOTE | 2017-03-25 10:48 | PCMIDPN ---
Assessment/Plan: Assessment: 66-year-old male with recent admission for pneumonia readmitted for shortness of breath. Diagnosed with possible aspiration pneumonia and is clinically improving on Unasyn. Clinically the patient looks pretty good today. Awake alert and communicative. Blood cultures are showing 2/2 sets with Staphylococcus epidermidis. This is an odd finding. We will repeat these blood cultures. Would not expect to find this in an aspiration pneumonia setting. Plan: 1. Continue empiric coverage with Unasyn. 2. Follow up on repeat blood cultures. Subjective: Patient is resting comfortably in his ICU room. He is awake, alert and conversant. He has no new complaint. States he is feeling better since readmission. Notes that the reason he came back in is because he became short of breath. Objective: Unasyn #2 Vital Signs Temp Pulse Resp BP Pulse Ox 36.9 C 70 16 137/59 H 90 L 03/25/17 07:54 03/25/17 09:07 03/25/17 08:00 03/25/17 09:07 03/25/17 08:00 Laboratory Results 03/25/17 05:10 03/25/17 05:10 03/24/17 03/25/17 03/26/17 05:59 05:59 05:59 Intake Total 2800 4840 700 Output Total 5150 750 Balance 2800 -310 -50 - Physical Exam General Appearance: WD/WN, alert, no apparent distress, non-toxic Respiratory: lungs clear, normal breath sounds, No respiratory distress Cardiac/Chest: regular rate, rhythm, No tachycardia Extremities: non-tender, normal inspection Skin: normal color, warm/dry, No rash Neuro/Psych: alert, normal mood/affect, oriented x 3 ICD10 Worksheet Patient Problems: Problems Problem Status Onset Acute exacerbation of congestive heart failure Acute Chronic renal disease Acute Elevated d-dimer Acute Hypoxia Acute Pneumonia Acute CHF (congestive heart failure) Acute Respiratory distress Acute chronic disease mgmt/ transitional care Acute
[2017-03-25] MEDS: oxyCODONE IR 5 MG TAB PO PRN ×3 (11:50→20:28)
[2017-03-25] MEDS: ACETAMINOPHEN 325 MG TAB PO PRN ×2 (17:21→22:23)
--- NOTE | 2017-03-25 19:17 | HOSPPROG ---
Hospitalist Progress Note Assessment/Plan: Assessment: 66 yo p/w acute on chronic respiratory failure 2/2 recurrent pneumonia, suspected to be aspiration pneumonia Plan: #Acute on chronic hypoxemic resp failure. Evidenced by SpO2 87% on 11LPM oxymask + objective tachypnea and shortness of breath, 2/2 pneumonia -VQ low prob PE -cont on 5LPM and wean #Suspected aspiration pneumonia. Previously received tx for HCAP, CXR w/ RLL/ LLL infiltrates (personally interpreted) -suspect aspiration PNA, patient declined VFSS/esophagram -d/w Dr. Tse, recommends ongoing Unasyn #Chronic Diastolic CHF: resumed home lasix #Severe pulm HTN: lasix #Chronic pain: cont home meds. Bowel regimen #Coag neg positive cultures: suspect contaminant. Repeated, pending #CKD Stage III: reviewed outside records, range is 2-2.4 #Schizophrenia: chronic, stable, resumed home meds #HTN: cont on dilt/metop/clonidine #DVT ppx: SQH #Code: full #Diet: regular #Dispo: ADD uncertain High-level of medical complexity, high risk patient for worsening morbidity and/ or mortality, secondary to the issues as outlined above, discussed with Dr. Jeremiah Horan on team rounds. Subjective: patient reports he can't walk Objective: Vital Signs Temp Pulse Resp BP Pulse Ox 36.6 C 55 L 20 158/94 H 90 L 03/25/17 16:00 03/25/17 16:00 03/25/17 16:00 03/25/17 17:40 03/25/17 16:00 Laboratory Results 03/25/17 05:10 03/25/17 05:10 03/24/17 03/25/17 03/26/17 05:59 05:59 05:59 Intake Total 2800 4840 1295 Output Total 5150 2140 Balance 2800 310 -885 - Physical Exam Constitutional: no apparent distress, not in pain, chronically ill appearing, obese, No uncomfortable Cardiovascular: regular rate and rhythym, no murmur, rub, or gallop, edema (1+ bilat LE), No irregularly irregular Respiratory: rhonchi (bilat lateral dudley on inspiration), No reduced air movement, No expiratory wheeze, No bronchial breath sounds, No respiratory distress Gastrointestinal: normoactive bowel sounds, soft, non-tender abdomen, no palpable masses, No distension Skin: other (blanching, erythema bilat shins, L>R) Neurologic: AAOx3, sensation intact bilaterally, No weakness (motor 4/5 bilat LE ) Psychiatric: not anxious, not encephalopathic, flat affect, No agitated ICD10 Worksheet Patient Problems: Problems Problem Status Onset Acute exacerbation of congestive heart failure Acute Chronic renal disease Acute Elevated d-dimer Acute Hypoxia Acute Pneumonia Acute CHF (congestive heart failure) Acute Respiratory distress Acute chronic disease mgmt/ transitional care Acute
[2017-03-26] MEDS: AMPICILLIN/SULBACTAM 3 GM in NS 100 ML IV SCH ×5 (00:47→23:45)
[2017-03-26] MEDS: oxyCODONE IR 5 MG TAB PO PRN ×5 (00:51→20:24)
[2017-03-26] MEDS: traMADol 50 MG TAB PO PRN ×4 (03:17→23:45)
[2017-03-26] MEDS: ACETAMINOPHEN 325 MG TAB PO PRN ×4 (04:22→21:06)
[2017-03-26] MEDS: HEPARIN 5,000 UNIT/0.5 ML SYR SC SCH ×3 (05:21→20:21)
[2017-03-26] MEDS: TAMSULOSIN HCL 0.4 MG CAP PO SCH (08:23)
[2017-03-26] MEDS: FUROSEMIDE 40 MG TAB PO SCH ×2 (08:23→15:00)
[2017-03-26] MEDS: ARIPiprazole 10 MG TAB PO SCH (08:23)
[2017-03-26] MEDS: guaiFENesin 600 MG TAB.ER PO SCH ×2 (08:23→20:21)
[2017-03-26] MEDS: ASCORBIC ACID 500 MG TAB PO SCH (08:23)
[2017-03-26] MEDS: MULTIVITAMINS 1 EACH TAB PO SCH (08:23)
[2017-03-26] MEDS: POTASSIUM CL 20 MEQ TAB PO SCH (08:23)
[2017-03-26] MEDS: PERPHENAZINE 8 MG TAB PO SCH ×2 (08:23→21:09)
[2017-03-26] MEDS: SENNOSIDES/DOCUSATE SODIUM TAB PO SCH ×2 (08:23→20:21)
[2017-03-26] MEDS: FLUTICASONE NASAL 120 SPRAYS/16 GM MDI EACHNARE SCH (08:24)
[2017-03-26] MEDS: POLYETHYLENE GLYCOL 3350 17 GM PKT PO SCH (08:24)
[2017-03-26] MEDS: NYSTATIN 15 GM OINTMENT TP SCH ×2 (08:25→21:09)
[2017-03-26] MEDS: MUPIROCIN 2% 22 GM OINT TP SCH ×3 (08:28→23:45)
[2017-03-26] MEDS: METOPROLOL SUCCINATE XR 25 MG TAB PO SCH (09:40)
[2017-03-26] MEDS: amLODIPine BESYLATE 5 MG TAB PO SCH (09:40)
--- NOTE | 2017-03-26 15:15 | HOSPPROG ---
Hospitalist Progress Note Assessment/Plan: Assessment: 66 yo p/w acute on chronic respiratory failure 2/2 recurrent pneumonia, suspected to be aspiration pneumonia Plan: #Acute on chronic hypoxemic resp failure. Evidenced by SpO2 87% on 11LPM oxymask + objective tachypnea and shortness of breath, 2/2 pneumonia -VQ low prob PE -cont on 4LPM and wean #Suspected aspiration pneumonia. Previously received tx for HCAP, CXR w/ RLL/ LLL infiltrates, situation is concerning given rising WBC -suspect aspiration PNA, patient declined VFSS/esophagram again today -d/w Dr. Jane, we recommended to patient to undergo additional diagnostic imaging to ensure there is not a mass causing recurrence/obstruction in RLL, but patient is adamant that he does not want additional w/u at this time -recommend that we continue Unasyn today, repeat WBC in AM, and, if declining, then we discharge patient (per his wishes) to [place] and consider ongoing IV Abx via PICC #Chronic Diastolic CHF: resumed home lasix and increase to bid given LE edema #Severe pulm HTN: lasix #Chronic pain: cont home meds. Bowel regimen #Coag neg positive cultures: suspect contaminant. Repeated, no growth #CKD Stage III: reviewed outside records, range is 2-2.4 #Schizophrenia: chronic, stable, resumed home meds #HTN: HR 40-60 this AM (sinus martha on tele, personally interpreted), adjust cardizem to norvasc, otherwise continue metop succ and clonidine #DVT ppx: SQH #Code: full #Diet: regular #Dispo: ADD uncertain, patient requesting discharge, believe it is unsafe today given rising WBC High level of medical complexity, high risk of worsening morbidity 2/2 conditions outlined above. Subjective: patient reports energy improving Objective: Vital Signs Temp Pulse Resp BP Pulse Ox 36.6 C 58 L 18 144/62 H 98 03/26/17 14:57 03/26/17 14:57 03/26/17 14:57 03/26/17 14:57 03/26/17 14:57 Laboratory Results 03/26/17 04:57 03/26/17 04:57 03/25/17 03/26/17 03/27/17 05:59 05:59 05:59 Intake Total 4840 2295 Output Total 5150 4140 1400 [facility] -310 -1845 -1400 - Pending Discharge Pending Discharge Within 24 Hours: Yes Pending Discharge Date: 03/27/17 Pending Discharge Time: 11:00 - Physical Exam Constitutional: not in pain, chronically ill appearing, obese, No uncomfortable Cardiovascular: systolic murmur (I/vI at sternum), bradycardia, edema (1+ bilat LE), No irregularly irregular, No tachycardia Respiratory: rhonchi (bilat mid lateral segs), No reduced air movement, No expiratory wheeze, No bronchial breath sounds, No respiratory distress Gastrointestinal: normoactive bowel sounds, soft, non-tender abdomen, no palpable masses, No distension Skin: other (blanchable erythema bilat shins, L>R) Neurologic: AAOx3, sensation intact bilaterally, No facial droop Psychiatric: interacting appropriately, not anxious, thought process linear, flat affect, No agitated ICD10 Worksheet Patient Problems: Problems Problem Status Onset Pneumonia Acute Acute exacerbation of congestive heart failure Acute Elevated d-dimer Acute Chronic renal disease Acute chronic disease mgmt/ transitional care Acute Respiratory distress Acute CHF (congestive heart failure) Acute Hypoxia Acute
--- NOTE | 2017-03-26 15:43 | PCMIDPN ---
Assessment/Plan: Assessment/Plan: 1. Aspiration pneumonia: - cxr reviewed: b/l infiltrates - wbc slightly up and o2 slighlty up as well. -Negative legionella and RVP - hiv negative -Continue with current unasyn as he has been overall improving Meds unasyn 3g q6- 03/23/17 Subjective: afebrile. feels better. on o2 at 5L. still with some cough. denies abd pain or diarrhea. Objective: Vital Signs Temp Pulse Resp BP Pulse Ox 36.6 C 58 L 18 144/62 H 98 03/26/17 14:57 03/26/17 14:57 03/26/17 14:57 03/26/17 14:57 03/26/17 14:57 Laboratory Results 03/26/17 04:57 03/26/17 04:57 03/25/17 03/26/17 03/27/17 05:59 05:59 05:59 Intake Total 4840 2295 Output Total 5150 4145 1400 Balance -310 -4457 -9131 - Physical Exam General Appearance: alert, no apparent distress Respiratory: coarse breath sounds Cardiac/Chest: regular rate, rhythm Extremities: No swelling Abdomen: normal bowel sounds, non-tender, soft, No distended Skin: No erythema ICD10 Worksheet Patient Problems: Problems Problem Status Onset Acute exacerbation of congestive heart failure Acute Chronic renal disease Acute Elevated d-dimer Acute Hypoxia Acute Pneumonia Acute CHF (congestive heart failure) Acute Respiratory distress Acute chronic disease mgmt/ transitional care Acute
[2017-03-26] MEDS ORDERED: HYDROmorphONE/DILAUDID 1 MG/ML INJ IVP PRN (21:09)
[2017-03-27] MEDS: ACETAMINOPHEN 325 MG TAB PO PRN ×2 (01:14→08:42)
[2017-03-27] MEDS: oxyCODONE IR 5 MG TAB PO PRN ×2 (02:11→08:41)
[2017-03-27] MEDS: AMPICILLIN/SULBACTAM 3 GM in NS 100 ML IV SCH ×2 (05:27→12:33)
[2017-03-27] MEDS: HEPARIN 5,000 UNIT/0.5 ML SYR SC SCH ×2 (05:28→12:39)
[2017-03-27 05:30] LABS: PLATELET COUNT 230 10^3/uL (150-400)
[2017-03-27] MEDS: traMADol 50 MG TAB PO PRN ×2 (05:56→12:01)
[2017-03-27 07:27] VITALS: PULSE 60; RESP 20; TEMP 97.5; O2SAT 90
[2017-03-27 08:44] VITALS: BP 145/68
[2017-03-27] MEDS: amLODIPine BESYLATE 5 MG TAB PO SCH (08:44)
[2017-03-27] MEDS: SENNOSIDES/DOCUSATE SODIUM TAB PO SCH (08:45)
[2017-03-27] MEDS: POLYETHYLENE GLYCOL 3350 17 GM PKT PO SCH (08:45)
[2017-03-27] MEDS: METOPROLOL SUCCINATE XR 25 MG TAB PO SCH (08:46)
[2017-03-27] MEDS: POTASSIUM CL 20 MEQ TAB PO SCH (08:46)
[2017-03-27] MEDS: FUROSEMIDE 40 MG TAB PO SCH (08:47)
[2017-03-27] MEDS: ASCORBIC ACID 500 MG TAB PO SCH (08:47)
[2017-03-27] MEDS: guaiFENesin 600 MG TAB.ER PO SCH (08:48)
[2017-03-27] MEDS: TAMSULOSIN HCL 0.4 MG CAP PO SCH (08:48)
[2017-03-27] MEDS: MULTIVITAMINS 1 EACH TAB PO SCH (08:48)
[2017-03-27] MEDS: ARIPiprazole 10 MG TAB PO SCH (08:49)
[2017-03-27] MEDS: PERPHENAZINE 8 MG TAB PO SCH (08:50)
[2017-03-27] MEDS: MUPIROCIN 2% 22 GM OINT TP SCH (08:51)
[2017-03-27] MEDS: FLUTICASONE NASAL 120 SPRAYS/16 GM MDI EACHNARE SCH (08:51)
[2017-03-27] MEDS: NYSTATIN 15 GM OINTMENT TP SCH (08:52)
--- NOTE | 2017-03-27 09:37 | PCMIDPN ---
Assessment/Plan: # Aspiration / recurrent PNA, chest x-ray 03/25/2017 was personally reviewed by me which shows some small areas of consolidation in the right greater than left base. Patient with decreasing O2 requirements but gradual increase in leukocytosis. Afebrile --refuses additional workup including swallow eval, CT scan. Patient aware of the risks of not uncovering underlying problems. --plan Augmentin 875mg PO BID, no adjustment for CrCl, Rx 10 more days --no ID follow up needed # Renal Insufficiency CrCl 56-48 # blood cultures positive for coag neg Staph consistent with contamination, repeat blood cultures 03/24 are negative Medication Unasyn 3 g IV Q 6, #4 Microbiology 03/24 blood cultures (2) NGTD 03/23 blood cultures (2) coag neg staph 03/27/17 10:52 Subjective: 1 loose bm this AM, no abdominal pain wants to return to [place], does want any more tests. Okay if we don't figure out all causes of his problems, okay with dying. Objective: Vital Signs Temp Pulse Resp BP Pulse Ox 36.4 C 60 20 145/68 H 90 L 03/27/17 07:24 03/27/17 07:24 03/27/17 07:24 03/27/17 08:43 03/27/17 07:24 Laboratory Results 03/27/17 04:58 03/27/17 04:58 03/26/17 03/27/17 03/28/17 05:59 05:59 05:59 Intake Total 2295 200 Output Total 4140 4100 Balance -1845 -3900 - Physical Exam General Appearance: alert, no apparent distress EENT: poor dentition, No thrush Respiratory: other (Overall poor air movement, no crackles were appreciated), No wheezing Extremities: pedal edema, inflammation (stocking distribution LLE due to venous insuffiency), other (Significant scar right lateral lower extremity) Abdomen: normal bowel sounds, non-tender, soft Skin: pallor, No rash Neuro/Psych: alert, normal mood/affect, oriented x 3 - Line/s PIV Lines: other (R upper forearm), No drainage, No erythema - Time Spent With Patient Time Spent with Patient: greater than 25 minutes Time Spent with Patient: Greater than 25 minutes spent on this patients care, greater than 50% of time spent counseling, educating, and coordinating care regarding the above mentioned plan. ICD10 Worksheet Patient Problems: Problems Problem Status Onset Acute exacerbation of congestive heart failure Acute Chronic renal disease Acute Elevated d-dimer Acute Hypoxia Acute Pneumonia Acute CHF (congestive heart failure) Acute Respiratory distress Acute chronic disease mgmt/ transitional care Acute
--- NOTE | 2017-03-27 12:52 | PDIAF ---
- Diagnosis Diagnosis: Recurrent aspiration pneumonia, HTN, chronic lower extremity edema Code Status: Full Code - Medication Management Discharge Medications: Medications to Continue on Transfer ARIPIPRAZOLE [Abilify 20mg] 20 mg PO DAILY 03/04/17 [Last Taken 03/22/17 08:00] Acetaminophen [Tylenol 325mg (*)] 650 mg PO Q6H PRN 03/04/17 [Last Taken ] Ascorbic Acid [Vitamin C 500 mg (*)] 500 mg PO DAILY 03/04/17 [Last Taken 08:00] Bisacodyl [Dulcolax] 10 mg RC DAILY PRN 03/04/17 [Last Taken Unknown] Fluticasone Nasal [Flonase Nasal [place]] 1 sprays NASAL DAILY 03/04/17 [Last Taken 03/22/17 08:00] Magnesium Hydroxide/Al Hydrox [Mylanta Liquid] 20 ml PO Q4H PRN 03/04/17 [Last Taken Unknown] Metoprolol Succinate Xr [Toprol Xl 25 mg (*)] 25 mg PO DAILY 03/04/17 [Last Taken 03/22/17 08:00] Multivitamins [Multivitamin (*)] 1 tab PO DAILY 03/04/17 [Last Taken 03/22/17 08 :00] Perphenazine [Trilafon 8mg (*)] 8 mg PO BID 03/04/17 [Last Taken 03/22/17 21:00] Polyethylene Glycol 3350 [Miralax 17 gm (*)] 17 gm PO DAILY 03/04/17 [Last Taken 03/22/17 08:00] Sennosides/Docusate Sodium [Senokot-S] 2 each PO BID 03/04/17 [Last Taken 21:00] Sodium Chloride [Saline Nose [place]] 1 spray NS Q4H PRN 03/04/17 [Last Taken Unknown] Tamsulosin HCl [Flomax 0.4 MG (*)] 0.4 mg PO DAILY 03/04/17 [Last Taken 21:00] clonIDINE [Catapres (*)] 0.2 mg PO BID 03/04/17 [Last Taken 03/22/17 16:00] traMADol [Ultram 50 mg (*)] 50 mg PO QID 03/04/17 [Last Taken 03/22/17 21:00] Albuterol [Proventil Neb] 3 ml IH Q2HRS PRN #10 deyvial 03/19/17 [Last Taken 02/25 15:00] guaiFENesin [Mucinex 600 MG (*)] 1,200 mg PO BID #0 tab.er 03/19/17 [Last Taken 03/22/17 20:00] Mupirocin 2% [Bactroban 2%] 1 monster TOP TID 03/23/17 [Last Taken Unknown] Nystatin [Mycostatin Cream (RX)] 1 monster TOP BID 03/23/17 [Last Taken Unknown] Potassium Cl [Klor-Con 20 meq (*)] 20 meq PO DAILY 03/23/17 [Last Taken 08:00] Acetaminophen [Tylenol 325mg (*)] 650 mg PO Q4HRS PRN tab 03/27/17 [Last Taken Unknown] Amoxicillin/Clavulanate Pot [Augmentin 875 MG TAB (*)] 875 mg PO BID #21 tab [Last Taken Unknown] Furosemide [Lasix 40 MG (*)] 40 mg PO BID@0900,1500 tab 03/27/17 [Last Taken Unknown] Gabapentin 100 mg PO HS #30 tablet 03/27/17 [Last Taken Unknown] amLODIPine BESYLATE [Norvasc 5 mg (*)] 5 mg PO DAILY tab 03/27/17 [Last Taken Unknown] oxyCODONE IR [Oxycodone Ir (*)] 2.5 - 5 mg PO Q6 PRN tab 03/27/17 [Last Taken Unknown] Senior Care Antibiotics: Augmentin 875mg bid PO Senior [facility] Antibiotic Stop Date: 04/05/17 Discharge Medications: Refer to the Discharge Home Medication list for PRN reason. PICC Care - Routine: N/A - Orders Services needed: Registered Nurse, Certified Newspaper Press Operator Apprentice, Occupational Therapy , Speech Language Pathologist Isolation Type: None Oxygen: 3LPM Diet Recommendation: sodium restricted Diet Texture: Regular Texture Diet, Thin Liquids, Meds Whole w/Liquids Weigh Patient: weekly Huitron: Not applicable (condom cath) Wound Care Instructions: continue to reassess lower extremity skin Activity/Weight Bearing Restrictions: linda lift per patient Additional: Palliative Care consultation requested within several days of discharge - patient expressing that he does NOT want to be hospitalized and has verbally expressed a palliative/hospice approach to care, as well as a Do Not Hospitalize directive; should have formal Palliative Consultation to ensure this is consistent and to arrange services, as it is anticipated that he will have recurrent aspiration pneumonias - Follow Up Care Current Providers and Referrals: Patient,NotPresent [Unknown] - As per Instructions Kendal Nunez MD [Medical Doctor] - follow up in 1 week
--- NOTE | 2017-03-27 13:09 | PDDCSUM ---
Discharge Summary Discharge Summary: DISCHARGE SUMMARY FOLLOW-UP ITEMS: Outpatient palliative care consultation required as soon as possible DATE OF ADMISSION: 03/23/2017 DATE OF DISCHARGE: 03/27/2017 DISCHARGE DIAGNOSES: 1. Acute on chronic hypoxic respiratory failure 2. Suspected aspiration pneumonia 3. Chronic diastolic congestive heart failure 4. Severe pulmonary hypertension 5. Chronic pain 6. Chronic kidney disease stage 3 7. Chronic schizophrenia 7. Chronic hypertension 8. Acute hyponatremia CONSULTATIONS: Infectious Disease PROCEDURES / IMAGING: Chest x-ray demonstrating persistent right lower lobe and left lower lobe infiltrates CHIEF COMPLAINT: Acute shortness of breath SUBJECTIVE: Patient reports that he would like to be discharged at this time, regardless of the consequences PHYSICAL EXAM ON DISCHARGE: Systolic blood pressure 140-170, heart rate 60, afebrile overnight, net -4 L overnight, satting on 3 L nasal cannula, some inspiratory rhonchi in the bilateral bases, no expiratory wheezes, heart rhythm is regular, no murmurs rubs or gallops, 1+ bilateral lower extremity edema, some mild blanching erythema bilateral lower extremities without any exposed wounds, abdomen is soft , moderately distended, patient is alert awake oriented x3, he has what seems to be rational thinking and he is expressing that he does not want to be brought back to the hospital even if this results in his ultimate LABS ON DISCHARGE: White blood cell count 15,700, hemoglobin 11.5, creatinine 2.0, serum bicarb 20 , serum sodium 133 HOSPITAL COURSE BY PROBLEM: 1. Acute on chronic hypoxic respiratory failure. Patient presented with symptomatic shortness of breath, SpO2 of 87% on 11 liters/minute oxy mask, as well as objective tachypnea, requiring step-down unit level of care and monitoring of his respiratory status. The patient's baseline oxygen requirement is between 3 and 4 L, and he was clearly requiring more than that, secondary to suspected aspiration pneumonia. A V/Q scan was performed and demonstrated low probability of pulmonary embolism, and the patient's oxygen was able to be weaned down to 3-4 L nasal cannula at time of discharge. I suspect that he will intermittently experience shortness of breath given his ongoing chronic hypoxic respiratory failure as well as pulmonary hypertension diastolic CHF and risk of recurrent aspiration pneumonias. I have counseled the patient that he is high risk for readmission to the hospital, particularly since he is being discharged home after declining any additional workup or ongoing treatment for his suspected aspiration pneumonia. I have asked the patient whether he would like a palliative consultation the outpatient setting to clarify whether this officially means that he has do not hospitalize status, and he would like to do so. Consequently, I would recommend palliative consultation as soon as possible to define exact goals of care, specifically address that he shall be a do not hospitalize status, and put the proper measures in place with an outpatient palliative/hospice service to help address any concerns of shortness of breath symptomatically at [place] rather than bringing him to emergency department. 2. Suspected aspiration pneumonia. The patient previously received treatment for healthcare associated pneumonia, and he was readmitted with chest x-ray demonstrating right lower lobe and left lower lobe infiltrates. He also had pulmonary symptoms and leukocytosis. Is suspected that the patient has ongoing aspiration and he was treated with IV Unasyn. We attempted to evaluate the degree of aspiration and dietary recommendations, but the patient declined any additional workup including esophagram or video fluoro swallow study. He also requested to maintain a regular diet, and the patient is requesting to be discharged home despite his white blood cell count continuing to rise, currently at 15,700. I have discussed this with Infectious Disease, and they have recommended adjusting the Unasyn to 875 Augmentin twice daily for the next 10 days. They are not recommending ongoing infectious disease follow-up, as the patient seems to be expressing his goals of care are to not require additional evaluation. 3. Chronic diastolic congestive heart failure. No evidence of acute exacerbation, the patient does have ongoing lower extremity edema, partially secondary to immobility, partially secondary to volume status. We increased his home dosage of Lasix from 40 mg once daily to 40 mg twice daily, the patient is experiencing good diuretic effect. He is also on supplemental potassium. Should be noted that given the patient's goals of care, we are not recommending ongoing outpatient lab monitoring, as the patient has specifically indicated that he does not want to be rehospitalized. 4. Chronic kidney disease stage 3. Per review of outside records, the patient' s baseline ranges between 2.0 and 2.4. He does not appear to be receiving outpatient nephrology care. I have placed the contact information for Dr. Nunez in the discharge materials, in case the patient does experience a change in his goals, and does request ongoing care - in that case, he will require ongoing outpatient nephrology management of his chronic kidney disease. 5. Severe pulmonary hypertension. Continue increased Lasix as above. 6. Chronic pain. Patient has chronic lower extremity pain, there is most likely neuropathic component. At initiated low-dose gabapentin at bedtime, and this should be monitored for affect. I have also provided the patient with low- dose oxycodone immediate release, given the patient's ultimate palliative goals of care. He will be maintained on a bowel regimen. 7. Schizophrenia. Chronic, appears to be stable, patient has been continued on his home medications. The patient indicates to me that he does not have a guardian and does not have a durable medical power of state's attorney. He does not wish to assign 1 at this time. 8. Chronic hypertension. The patient is chronically on a combination of calcium channel marc, beta-marc, clonidine, and I have adjusted his Cardizem to Norvasc given his sinus bradycardia. His Norvasc can be up titrated in the outpatient setting if he continues to experience suboptimal blood pressure control. DISCHARGE MEDICATIONS: Please see official discharge medication reconciliation sheet in chart , continue home medications with the discontinuation of Cardizem, introduction of Norvasc 5 mg daily, increase in Lasix to 40 mg twice daily, addition of as needed oxycodone immediate release 2.55 mg q.6 hours, gabapentin 100 mg at bedtime. DISCHARGE INSTRUCTIONS: Please arrange outpatient palliative care consultation as soon as possible. TIME SPENT: Greater than 30 minutes were spent on direct patient care, as well as discharge planning and preparation.
--- NOTE | 2017-03-28 10:09 | ASDISCHSUM ---
Discharge Information Plan Status:SNF Medically Cleared to Leave: Discharge Date:03/27/2017 02:23 PM D/C Disposition:Jail Facility ADT D/C Disposition:Jail Facility Projected Discharge Date:03/27/2017 03:00 PM Transportation at D/C:ALS/BLS Discharge Delay Reason: Follow-Up Date:03/27/2017 03:00 PM Discharge Slot: Final Diagnosis: Placement Information Referral Type:*Alf/SNF Referral ID:[id number] Provider Name:Gina Bah [place] Address 1:[address] Address 2: [facility]:[place] Selection Factors: State:[place] Patient Contact Information Contact Name:ANTONI Relationship:Other Address:[address] City:[place] Alternate Phone: State/Zip Code:[place] [address] Email: Financial Information Financial Class: Primary Plan Desc:MEDICARE INPATIENT Primary Plan Number:[id number] Secondary Plan Desc:MED[place] Secondary Plan Number:[id number] Assessment Information [facility] CM Progress Note CM Note CM Note Notes: Patient sent to [facility] from [place] where he lives for shortness of breath and cough. He was last discharged from [facility] 03/18 on antibiotics and Oxygen. He has been on 4L NC for the last two weeks. He has underlying CHF I anticipate that patient will discharge back to when he is medically stable. CM available to help with any discharge needs. Date Signed: 03/23/2017 03:43 PM Electronically Signed By:Jennifer Lim RN Case Management Discharge Plan Note Case Management Discharge Discharge Order Complete? Answers: Yes Patient to Obtain Answers: Other Notes: [facility] Medications Transportation Arranged Answers: JOHN Stretcher Transport will Pick (Date 03/27/2017 02:00 PM & Time) Case Management Transport Answers: Yes Form Complete Faxed Final Orders Answers: Yes Discharge Comments Notes: D/joshua CABEZAS, final orders faxed. Guille ingram notified, RN to call report. [place] confirmation # [id number] Date Signed: 03/27/2017 01:17 PM Electronically Signed By:Adrianna Jon RN Intervention Information
== END 2017-03-27 14:23 | DRG 177 ==
LOC: EDUNIT# → F2N 05:38 → OBSVTOIN 15:14 → F3E 03-25 12:54
PROVIDERS: ADMIT Student in an Organized Health Care Education/Training Program; ATTEND Student in an Organized Health Care Education/Training Program
DX: J69.0 Pneumonitis due to inhalation of food and vomit (principal); J96.21 Acute and chronic respiratory failure with hypoxia; I13.0 Hypertensive heart and chronic kidney disease with heart failure and stage 1 through stage 4 chronic kidney disease, or unspecified chronic kidney disease; I50.32 Chronic diastolic (congestive) heart failure; N18.3 Chronic kidney disease, stage 3 (moderate); G89.29 Other chronic pain; F20.9 Schizophrenia, unspecified; E87.1 Hypo-osmolality and hyponatremia; I27.20 Pulmonary hypertension, unspecified; Z99.81 Dependence on supplemental oxygen; Z87.440 Personal history of urinary (tract) infections; Z99.3 Dependence on wheelchair; F17.210 Nicotine dependence, cigarettes, uncomplicated
CPT/HCPCS: 87449-90; 92610-GN; 96374; 97162-GP; A9540; G8978-GP-CM; G8979-GP-CK; G8996-GN-CH; G8997-GN-CH; G8998-GN-CH; J0295; J0456; J0692; J1170; J3370

== ENCOUNTER 2017-05-14 02:34 | Inpatient (IN) | payer OTHER, MEDICAID ==
[2017-05-14 02:47] LABS: PLATELET COUNT 213 10^3/uL (150-400)
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
--- NOTE | 2017-05-14 02:50 | CPEKG ---
Heart Rate: 85 RR Interval: 706 P-R Interval: 140 QRSD Interval: 100 QT Interval: 360 QTC Interval: 428 P [place]: 35 QRS [place]: 48 T Wave [place]: -14 EKG Severity - BORDERLINE ECG - EKG Impression: SINUS RHYTHM EKG Impression: BORDERLINE INFERIOR Q WAVES Electronically Signed By: Harris Yarbrough 14-May-2017 06:41:18
[2017-05-14 02:58] LABS: CREATINE KINASE 62 IU/L (0-224)
[2017-05-14] MEDS ORDERED: PIPERACILLIN/TAZO 4.5 GM/DEX 100 ML IV ONE (03:07)
[2017-05-14] MEDS ORDERED: VANCOMYCIN HCL/NORMAL SALINE 250 ML IV ONE (03:07)
[2017-05-14 03:11] LABS: INR 1.04 (0.83-1.16); PROTIME(PATIENT) 13.8 SEC (12.0-15.0)
[2017-05-14] MEDS ORDERED: VANCOMYCIN 1 GM in NS 250 ML IV ONE (03:30)
[2017-05-14] MEDS ORDERED: ACETAMINOPHEN 325 MG TAB PO PRN (03:34)
[2017-05-14] MEDS ORDERED: ONDANSETRON 4 MG/2 ML VIAL IVP PRN (03:34)
[2017-05-14] MEDS ORDERED: oxyCODONE IR 5 MG TAB PO PRN (03:34)
[2017-05-14] MEDS ORDERED: ONDANSETRON DISINTEGRATING 4 MG TAB PO PRN (03:34)
[2017-05-14] MEDS ORDERED: ALBUTEROL 3 ML DEYVIAL IH PRN (03:34)
--- NOTE | 2017-05-14 04:37 | PDGENHP ---
History and Physical - Chief Complaint Leg pain, SOB - History of Present Illness 66 yo M w/ severe pHTN, HTN, schizophrenia, CKD, chronic pain, and several recent admissions for aspiration pneumonia presents with leg pain and SOB. Patient has been admitted on multiple occasions this year with similar presentations. Last admission he refused complete treatment for aspiration pneumonia and instead opted to return to [place] with comfort measures in place. Today, however, he developed severe LE pain and asked he be brought to the hospital. Documentation from Dr. Gandhi's discharge summary on 03/27/17 makes note of a "do not hospitalize" wish, but patient does not wish to stick to this at this time. He describes bilateral pain involving all of his legs but mostly his ankles. He has necrotizing wounds on his thighs with purulent discharge of unclear etiology. Patient states these occurred when liquid oxygen fell on his legs. He is also hypoxic beyond baseline and does not some shortness of breath. He is being admitted for antibiotics, pain control, and wound care. History Information - Allergies/Home Medication List Allergies/Adverse Reactions: No Known Allergies Allergy (Verified 05/14/17 02:40) Home Medications: ARIPIPRAZOLE [Abilify 20mg] 20 mg PO DAILY 03/04/17 [Last Taken 03/22/17 08:00] Acetaminophen [Tylenol 325mg (*)] 650 mg PO Q6H PRN 03/04/17 [Last Taken ] Ascorbic Acid [Vitamin C 500 mg (*)] 500 mg PO DAILY 03/04/17 [Last Taken 08:00] Bisacodyl [Dulcolax] 10 mg RC DAILY PRN 03/04/17 [Last Taken Unknown] Fluticasone Nasal [Flonase Nasal [place]] 1 sprays NASAL DAILY 03/04/17 [Last Taken 03/22/17 08:00] Magnesium Hydroxide/Al Hydrox [Mylanta Liquid] 20 ml PO Q4H PRN 03/04/17 [Last Taken Unknown] Metoprolol Succinate Xr [Toprol Xl 25 mg (*)] 25 mg PO DAILY 03/04/17 [Last Taken 03/22/17 08:00] Multivitamins [Multivitamin (*)] 1 tab PO DAILY 03/04/17 [Last Taken 03/22/17 08 :00] Perphenazine [Trilafon 8mg (*)] 8 mg PO BID 03/04/17 [Last Taken 03/22/17 21:00] Polyethylene Glycol 3350 [Miralax 17 gm (*)] 17 gm PO DAILY 03/04/17 [Last Taken 03/22/17 08:00] Sennosides/Docusate Sodium [Senokot-S] 2 each PO BID 03/04/17 [Last Taken 21:00] Sodium Chloride [Saline Nose [place]] 1 spray NS Q4H PRN 03/04/17 [Last Taken Unknown] Tamsulosin HCl [Flomax 0.4 MG (*)] 0.4 mg PO DAILY 03/04/17 [Last Taken 21:00] clonIDINE [Catapres (*)] 0.2 mg PO BID 03/04/17 [Last Taken 03/22/17 16:00] traMADol [Ultram 50 mg (*)] 50 mg PO QID 03/04/17 [Last Taken 03/22/17 21:00] Mupirocin 2% [Bactroban 2%] 1 monster TOP TID 03/23/17 [Last Taken Unknown] Nystatin [Mycostatin Cream (RX)] 1 monster TOP BID 03/23/17 [Last Taken Unknown] Potassium Cl [Klor-Con 20 meq (*)] 20 meq PO DAILY 03/23/17 [Last Taken 08:00] I have personally reviewed and updated: family history, medical history - Past Medical History Additional medical history: Schizophrenia. DEMARCUS/OHS. CHRF - On 4 L/min O2 @ baseline. CKD - Family History Positive for: cancer - Social History Smoking Status: Heavy smoker Review of Systems Review of Systems: ROS: 10pt was reviewed & negative except for what was stated in HPI & below Physical Exam Physical Exam: Temp Pulse Resp BP Pulse Ox 37.4 C 86 28 H 177/53 H 90 L 05/14/17 02:42 05/14/17 02:42 05/14/17 02:42 05/14/17 02:42 05/14/17 02:42 Constitutional: obese, uncomfortable Eyes: PERRL, EOMI Ears, Nose, Mouth, Throat: moist mucous membranes, no oral mucosal ulcers Cardiovascular: regular rate and rhythym, systolic murmur Respiratory: no respiratory distress, reduced air movement Gastrointestinal: normoactive bowel sounds, soft, non-tender abdomen, distension Skin: other (Bilateral necrotizing thigh wounds with purulent d/c; venous stasis dermatitis bilaterally) Neurologic: AAOx3, CN II-XII Intact Psychiatric: interacting appropriately, not anxious Lab Data & Imaging Review 05/14/17 02:30 05/14/17 02:30 WBC 13.80 10^3/uL (3.80-9.50) H 05/14/17 02:30 RBC 3.81 10^6/uL (4.40-6.38) L 05/14/17 02:30 Hgb 11.7 g/dL (13.7-17.5) L 05/14/17 02:30 Hct 36.2 % (40.0-51.0) L 05/14/17 02:30 MCV 95.0 fL (81.5-99.8) 05/14/17 02:30 MCH 30.7 pg (27.9-34.1) 05/14/17 02:30 MCHC 32.3 g/dL (32.4-36.7) L 05/14/17 02:30 RDW 15.6 % (11.5-15.2) H 05/14/17 02:30 Plt Count 213 10^3/uL (150-400) 05/14/17 02:30 MPV 9.2 fL (8.7-11.7) 05/14/17 02:30 Neut % (Auto) 62.2 % (39.3-74.2) 05/14/17 02:30 Lymph % (Auto) 31.4 % (15.0-45.0) 05/14/17 02:30 [place] % (Auto) 5.4 % (4.5-13.0) 05/14/17 02:30 Eos % (Auto) 0.4 % (0.6-7.6) L 05/14/17 02:30 Baso % (Auto) 0.2 % (0.3-1.7) L 05/14/17 02:30 Nucleat RBC Rel Count 0.0 % (0.0-0.2) 05/14/17 02:30 Absolute Neuts (auto) 8.59 10^3/uL (1.70-6.50) H 05/14/17 02:30 Absolute Lymphs (auto) 4.33 10^3/uL (1.00-3.00) H 05/14/17 02:30 Absolute Monos (auto) 0.74 10^3/uL (0.30-0.80) 05/14/17 02:30 Absolute Eos (auto) 0.06 10^3/uL (0.03-0.40) 05/14/17 02:30 Absolute Basos (auto) 0.03 10^3/uL (0.02-0.10) 05/14/17 02:30 Absolute Nucleated RBC 0.00 10^3/uL (0-0.01) 05/14/17 02:30 Immature Gran % 0.4 % (0.0-1.1) 05/14/17 02:30 Immature Gran # 0.05 10^3/uL (0.00-0.10) 05/14/17 02:30 PT 13.8 SEC (12.0-15.0) 05/14/17 02:30 INR 1.04 (0.83-1.16) 05/14/17 02:30 APTT 28.3 SEC (23.0-38.0) 05/14/17 02:30 VBG Lactic Acid 0.9 mmol/L (0.7-2.1) 05/14/17 02:40 Sodium 140 mEq/L (135-145) 05/14/17 02:30 Potassium 5.1 mEq/L (3.5-5.2) 05/14/17 02:30 Chloride 105 mEq/L (97-110) 05/14/17 02:30 Carbon Dioxide 22 mEq/l (22-31) 05/14/17 02:30 Anion Gap 13 mEq/L (8-16) 05/14/17 02:30 BUN 67 mg/dL (7-23) H 05/14/17 02:30 Creatinine 2.0 mg/dL (0.7-1.3) H 05/14/17 02:30 Estimated GFR 34 05/14/17 02:30 Glucose 93 mg/dL (70-100) 05/14/17 02:30 Calcium 8.7 mg/dL (8.5-10.4) 05/14/17 02:30 Magnesium 1.9 mg/dL (1.6-2.3) 05/14/17 02:30 Total Bilirubin 0.4 mg/dL (0.1-1.4) 05/14/17 02:30 Conjugated Bilirubin 0.3 mg/dL (0.0-0.5) 05/14/17 02:30 Unconjugated Bilirubin 0.1 mg/dL (0.0-1.1) 05/14/17 02:30 AST 15 IU/L (17-59) L 05/14/17 02:30 ALT 33 IU/L (21-72) 05/14/17 02:30 Alkaline Phosphatase 93 IU/L (38-126) 05/14/17 02:30 Creatine Kinase 62 IU/L (0-224) 05/14/17 02:30 CK-MB (CK-2) Fraction 2.90 ng/mL (0.00-3.19) 05/14/17 02:30 Troponin I < 0.012 ng/mL (0.000-0.034) 05/14/17 02:30 NT-Pro-B Natriuret Pep 506 pg/mL (0-125) H 05/14/17 02:30 Total Protein 6.4 g/dL (6.3-8.2) 05/14/17 02:30 Albumin 3.5 g/dL (3.5-5.0) 05/14/17 02:30 Lipase 52 IU/L (23-300) 05/14/17 02:30 Nasal Influenza A PCR NEGATIVE FOR FLU A (NEGATIVE) 05/14/17 03:00 Nasal Influenza B PCR NEGATIVE FOR FLU B (NEGATIVE) 05/14/17 03:00 Visualized and Interpreted Chest x-ray results: Yes Chest X-Ray results: other (Poor inspiratory effort, vascular congestion, no clear infiltrate) Visualized and Interpreted EKG results: Yes EKG Interpretation: Positive for: normal sinsus rhythm, other (Q in lead III) Assessment & Plan Assessment: 66 yo M w/ severe pHTN, HTN, schizophrenia, CKD, chronic pain, and several recent admissions for aspiration pneumonia presents with bilateral necrotizing leg wounds and likely ongoing aspiration pneumonia. Plan: 1. Acute on chronic HRF - Patient with 4-5 L O2 baseline 2/2 severe pHTN, DEMARCUS/ OHS, and likely COPD noting long smoking history. Currently requiring 8-10 L/ min O2 with trigger not entirely clear. I suspect some element of aspiration pneumonia is present as he has suffered from this multiple times so far this year. He has refused swallow studies on recent admissions. He has a comfort measures only desire but is ok with antibiotic therapy. - Vancomycin, Zosyn for broad antibiotic coverage at this time - Fannie QID - Incentive spirometry, wean O2 as able - Consider inpatient palliative care consult 2. 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 Will treat empirically with antibiotics for now, de-escalate as able. - Vanc, Zosyn as above - Blood cultures, procalcitonin - Will continue regular diet as patient has comfort only wishes and has refused further swallow studies in the past 3. Lower extremity necrotizing wounds - With purulent discharge; unclear etiology but patient states they occurred when liquid oxygen spilled on his legs. At high risk for resistant organisms noting residence in a nursing facility and frequent hospitalizations. He was on Keflex PO at [place]. - Vanc, Zosyn for now - Wound care consult ordered 4. CKD - Stage III, serum creatinine at baseline 5. Pulmonary HTN - RVSP 58 mm Hg on most recent TTE. On 4-5 L/min O2 at baseline. On furosemide 80 mg qD at [place]. 6. HTN - On amlodipine and metoprolol as outpatient, needs med reconciliation. 7. Schizophrenia - Seems well compensated, on Abilify as outpatient. Diet - Regular Code - Full Ppx - LMWH Dispo - Admit under observation status
[2017-05-14] MEDS: HEPARIN 5,000 UNIT/0.5 ML SYR SC SCH ×2 (05:35→13:46)
[2017-05-14] MEDS: IPRATROPIUM/ALBUTEROL 3 ML DEYVIAL IH SCH ×3 (06:26→17:17)
[2017-05-14] MEDS ORDERED: PIPERACILLIN/TAZO 2.25 GM/DEX 50 ML IV SCH (08:30)
--- NOTE | 2017-05-14 10:32 | WOCRNPDOC ---
REMBERTO Advanced Assessment Note - Skin Integrity Problem, Advanced Assess Coccyx Pressure Injury Dressing Type: Alginate, Allevyn Life Dressing Description: Clean/Dry, Intact Exudate Amount: Scant Exudate Characteristic(s): Serous Integumentary Issue Intervention: Visualized Under Dressing Willi Wound Tissue: Scarred Wound Bed Color: Bishop Wound Bed Constitution: Red/Bishop - Non Granular Tissue (100%) Wound Edges: Not Attached, Epibole Site Measurement - Head-to-Toe Length X Width X Depth (cm): 3x1x0.3 Pressure Injury Stage: Stage 3 Pressure Injury Present on Admit: Yes Left Anterior Thigh Dressing Type: Open to Air Willi Wound Tissue: Erythema (minimal willi wound) Wound Bed Constitution: Mixed Loose & Adhered Slough/Eschar (100%) Site Measurement - Head-to-Toe Length X Width X Depth (cm): 2.8x1.8xnecrosis Right Anterior Thigh Dressing Type: Open to Air Exudate Amount: Scant Exudate Characteristic(s): Serosanguinous Willi Wound Tissue: Erythema (willi wound) Wound Bed Constitution: Granulation Tissue (10% in inferior portion of wound ), Adhered Slough (10% mixed with granulation in inferior portion of wound), Unstable Eschar (80% ) Wound Edges: Attached, Not Attached Site Measurement - Head-to-Toe Length X Width X Depth (cm): 6.3x6.8x0.3 Skin Integrity Problem Comment: Full thickness necrotic wound. Can initiate autolytic debridment but it may accelerate healing if the wound was sharp debrided. Dr. Mckenzie aware. Right Heel Pressure Injury Dressing Type: Open to Air Exudate Amount: None Wound Bed Constitution: Red/Bishop - Non Granular Tissue (100%) Wound Edges: Attached Site Measurement - Head-to-Toe Length X Width X Depth (cm): 1.3x1.3x0.2 Pressure Injury Stage: Stage 3 Pressure Injury Present on Admit: Yes Skin Integrity Problem Comment: Heel boots in place.
[2017-05-14] MEDS ORDERED: FUROSEMIDE 40 MG/4 ML VIAL IVP ONE (10:57)
--- NOTE | 2017-05-14 13:42 | ASMTCMCOM ---
CM Note CM Note Notes: 66yr old male admitted from [place] for SOB, Asp PNA, Hypoxia, Pulm HTN, HTN, CKD, Chronic pain, LE Necrotizing wounds, DEMARCUS. Patient has a hx of Schizophrenia and is a smoker. Patient has been in discussion with Palliative Care re: In-pt [facility] at [facility]. Referral sent to [facility]. Date Signed: 05/14/2017 01:41 PM Electronically Signed By:Gabby Magana LCSW
[2017-05-14] MEDS ORDERED: PIPERACILLIN/TAZO 4.5 GM/DEX 100 ML IV SCH (14:00)
[2017-05-14] MEDS ORDERED: VANCOMYCIN 1 GM in NS 250 ML IV SCH (15:30)
--- NOTE | 2017-05-14 15:33 | CPEKG ---
Heart Rate: 104 RR Interval: 577 P-R Interval: 140 QRSD Interval: 98 QT Interval: 348 QTC Interval: 458 P Marion: 71 QRS Marion: 76 T Wave Marion: 152 EKG Severity - ABNORMAL ECG - EKG Impression: SINUS TACHYCARDIA EKG Impression: BORDERLINE INFERIOR Q WAVES EKG Impression: REPOL ABNRM SUGGESTS ISCHEMIA, DIFFUSE LEADS Electronically Signed By: Laureano Chaney 15-May-2017 12:15:07
[2017-05-14] MEDS ORDERED: GLYCOPYRROLATE 0.2 MG/1 ML VIAL IVP/IM PRN (15:57)
[2017-05-14] MEDS ORDERED: ATROPINE 1% 5 ML OPHT.BTL SL PRN (15:57)
[2017-05-14] MEDS ORDERED: morphINE 10 MG/0.5 ML UDSYR PO PRN (15:57)
[2017-05-14] MEDS ORDERED: SCOPOLAMINE HYDROBROMIDE 1 MG/3 DAYS PATCH TD PRN (15:57)
[2017-05-14] MEDS: LORazepam 2 MG/ML INJ IVP PRN ×2 (16:08→20:56)
[2017-05-14] MEDS: oxyCODONE IR 5 MG TAB PO SCH ×2 (17:38→23:34)
--- NOTE | 2017-05-14 18:58 | HOSPPROG ---
Hospitalist Progress Note Assessment/Plan: Patient has worsening respiratory status throughout the morning. Transferred to ICU. Initially his goal of care were unclear. He desired DNR but otherwise desired treatment. ABX continued for probable aspiration PNA. V/Q scan low prob for PE. Given empiric Lasix. Respiratory status continued to worsen. Mental status remained intact. Resp status continue to worsen throughout the day. 85% 15L. He was offered BIPAP. At this point he declined treatment and changed his mind to comfort measures. Full comfort care instituted. Patient continues to decline and not expected to survive beyond the next 24-48 hours. CC time spent - 65 minutes Objective: Vital Signs Temp Pulse Resp BP Pulse Ox 37.1 C 104 H 30 H 163/68 H 85 L 05/14/17 11:55 05/14/17 15:35 05/14/17 15:35 05/14/17 15:35 05/14/17 15:35 05/13/17 05/14/17 05/15/17 05:59 05:59 05:59 Intake Total 300 1000 Output Total 1000 Balance 300 0 PT 13.8 SEC (12.0-15.0) 05/14/17 02:30 INR 1.04 (0.83-1.16) 05/14/17 02:30 ICD10 Worksheet Patient Problems: Problems Problem Status Onset Cellulitis Acute Hypoxia Acute Open leg wound Acute Pneumonia Acute Pulmonary hypertension Acute Acute exacerbation of congestive heart failure Acute CHF (congestive heart failure) Acute Chronic renal disease Acute Elevated d-dimer Acute Respiratory distress Acute chronic disease mgmt/ transitional care Acute
[2017-05-14] MEDS: guaiFENesin 600 MG TAB.ER PO SCH (23:33)
[2017-05-14] MEDS: PERPHENAZINE 8 MG TAB PO SCH (23:34)
[2017-05-14] MEDS: SENNOSIDES/DOCUSATE SODIUM TAB PO SCH (23:34)
[2017-05-14] MEDS: traMADol 50 MG TAB PO SCH (23:34)
[2017-05-15] MEDS: LORazepam 2 MG/ML INJ IVP PRN ×2 (00:04→02:59)
[2017-05-15] MEDS: IPRATROPIUM/ALBUTEROL 3 ML DEYVIAL IH SCH ×4 (02:09→15:58)
--- NOTE | 2017-05-15 02:51 | GCON ---
[f rep st] CONSULTATION PULMONARY CONSULTATION DATE OF CONSULTATION: 05/14/2017 REASON FOR CONSULTATION: Acute respiratory failure. HISTORY: The patient is a 66-year-old, who is known to me from a hospitalization about 2 months ago. He has a history of recurrent aspiration, pneumonia, congestive heart failure secondary to diastolic dysfunction, obstructive sleep apnea, chronic hypoxemia, pulmonary hypertension, and chronic renal failure. He was admitted today, brought in from [place], with increasing shortness of breath, as well as leg pain. He has new bilateral infiltrates on x-ray, shortness of breath, and increasing oxygen requirements, now at 15 L. His baseline is 4-5 L. Hospice care has been discussed, and the patient has been agreeable to this at times, and unclear about this at other times. At the time of my visit, he does seem to appropriately want hospice and understands that treatment will be different, more comfort care provided, etc. He is in agreement with this. PAST MEDICAL HISTORY: Remarkable for chronic hypoxemia and respiratory failure , recurrent aspiration pneumonia, schizophrenia, obstructive sleep apnea, diastolic dysfunction, congestive heart failure, pulmonary hypertension, chronic lower extremity pain and weakness for which he is nonambulatory and uses a wheelchair, hypertension, and prostatism. DRUG ALLERGIES: None known. FAMILY HISTORY: Noncontributory. REVIEW OF SYSTEMS: A 10-point review of system is negative, except as mentioned above. He is not complaining of leg pain at this time. V/Q scans in the past have been negative. He had another one today. PHYSICAL EXAMINATION: GENERAL: Reveals a gentleman who is in mild respiratory distress. VITAL SIGNS: A non-rebreather mask is in place with 15 L with saturations in the high 80s. Heart rate is approximately 100 with sinus tachycardia on the monitor. Respiratory rate is variable, between 20 and 30. Blood pressure is 163/68. He is afebrile. HEENT: Remarkable for the non- rebreather mask. Jugular venous distention is difficult to evaluate. Mucous membranes are somewhat dry. CHEST: Breath sounds are diminished bilaterally. Breath sounds are coarse, but relatively good air movement, equally bilaterally. Some rales are present at the bases. No rhonchi are currently appreciated. There are no significant expiratory wheezes. HEART: Tachycardic. Heart tones are distant. ABDOMEN: Overweight, distended, nontender and with positive bowel sounds. EXTREMITIES: Remarkable for chronic changes. There are no open wounds. There is no significant erythema. DATABASE: Chest x-ray shows increased bibasilar infiltrates. White blood cell count is 13,800, hematocrit 36, platelets are normal. PT and PTT were normal on admission. Venous lactate was 0.9. Sodium was 140 with a potassium of 5.1. BUN 67, creatinine 2.0. Creatinine is at baseline. BUN is high. Liver function studies are within normal limits. BNP is 506. Serology for flu is negative. ASSESSMENT: 1. Acute on chronic respiratory failure. He is tachypneic and complains of dyspnea. New bilateral pulmonary infiltrates are present, possibly consistent with aspiration pneumonia. He is on broad-spectrum antibiotics including Zosyn and vancomycin, bronchodilator therapy, and high-flow oxygen. BiPAP may be required. He is "No COR". Intubation will not be offered. 2. Hospice evaluation. He has been equivocal about his wishes today. However , during my visit, he seems to understand the issues of hospice and does wish to transition to that level of care. I will discuss this with others, including hospice, as soon as possible. 3. History of congestive heart failure. BNP is relatively low, and heart failure does not appear to be an active issue at the present time. Lasix has been given. 4. History of schizophrenia. This appears to be in relatively good control. 5. History of multiple medical problems, as outlined above. PLAN: The patient will be kept in the intensive care unit for now. Bronchodilator therapies and antibiotics will be continued. Chest x-ray will be followed. Results of the repeat V/Q scan will be awaited. Arterial blood gas will be obtained. Issues regarding transfer to inpatient hospice will be readdressed as soon as possible with the hospitalist and with [facility] [employer], as well as palliative care. Per my conversations with the patient he does understand both acute and chronic medical issues and does not wish aggressive care in hospital. He does feel hospice and comfort care would be more appropriate. Further plans and recommendations will be made based on his progress over the next 12-24 hours. /[id number]/MODL MTDD
[2017-05-15] MEDS ORDERED: VANCOMYCIN 1.5 GM in NS 250 ML IV SCH (03:30)
[2017-05-15 07:17] VITALS: BP 107/67; TEMP 99.8
[2017-05-15] MEDS ORDERED: POLYETHYLENE GLYCOL 3350 17 GM PKT PO SCH (09:00)
[2017-05-15] MEDS ORDERED: ARIPIPRAZOLE 20 MG PO SCH (09:00)
[2017-05-15] MEDS ORDERED: amLODIPine BESYLATE 5 MG TAB PO SCH (09:00)
[2017-05-15] MEDS ORDERED: FLUTICASONE NASAL 120 SPRAYS/16 GM MDI EACHNARE SCH (09:00)
[2017-05-15] MEDS ORDERED: METOPROLOL SUCCINATE XR 25 MG TAB PO SCH (09:00)
[2017-05-15] MEDS ORDERED: ASCORBIC ACID 500 MG TAB PO SCH (09:00)
[2017-05-15] MEDS ORDERED: ARIPiprazole 10 MG TAB PO SCH (09:00)
[2017-05-15] MEDS ORDERED: TAMSULOSIN HCL 0.4 MG CAP PO SCH (09:00)
[2017-05-15] MEDS ORDERED: FUROSEMIDE 80 MG TAB PO SCH (09:00)
[2017-05-15] MEDS ORDERED: COLLAGENASE 30 GM OINTMENT TP SCH (09:00)
--- NOTE | 2017-05-15 11:11 | PDIAF ---
- Diagnosis Diagnosis: pneumonia Code Status: Do Not Resuscitate - Medication Management Discharge Medications: Medications to Continue on Transfer Collagenase [Santyl (*)] 1 monster TP DAILY 05/14/17 [Last Taken Unknown] morphINE [Roxanol 10 mg/0.5 ml oral soln (*)] 5 - 40 mg PO Q2HRS PRN #1 udsyr [Last Taken Unknown] Discharge Medications: Refer to the Discharge Home Medication list for PRN reason. - Orders Services needed: Registered Nurse Isolation Type: None Diet Texture: Regular Texture Diet, Thin Liquids, Meds Whole w/Liquids - Follow Up Care Current Providers and Referrals: BRANDI HAJI [Primary Care Provider] - As per Instructions
--- NOTE | 2017-05-15 11:43 | GDS ---
[f rep st] DISCHARGE SUMMARY DISCHARGE DIAGNOSES: 1. Bilateral pneumonia. 2. Acute diastolic congestive heart failure exacerbation. 3. Severe pulmonary hypertension. 4. Chronic kidney disease. 5. Schizophrenia. 6. Hypertension. HISTORY: This is a 66-year-old male with a history of schizophrenia as well as heart failure, severe pulmonary hypertension, and chronic lower extremity wounds. He was hospitalized in March and refu sed any additional workup. In discussion with his brother, he states that he has been declining over the last several months. He has been getting tired and does not want further interventions. The pa piedad's respiratory status worsened and required more oxygen. He refused BiPAP and intubation. Disc ussions were had with the patient and he wants to be comfort care only. He was then switched over to that, and Hospice did see the patient. They are accepting him and he will go to the [facility]. TIME SPENT: Greater than 30 minutes was spent on discharge. /[id number]/MODL
[2017-05-15] MEDS: guaiFENesin 600 MG TAB.ER PO SCH (14:58)
[2017-05-15] MEDS: oxyCODONE IR 5 MG TAB PO SCH (14:59)
[2017-05-15] MEDS: PERPHENAZINE 8 MG TAB PO SCH (15:00)
[2017-05-15] MEDS: SENNOSIDES/DOCUSATE SODIUM TAB PO SCH (15:00)
[2017-05-15] MEDS: traMADol 50 MG TAB PO SCH (15:01)
[2017-05-15 16:10] VITALS: PULSE 108; RESP 18; O2SAT 85
--- NOTE | 2017-05-15 16:24 | PDMN ---
Medical Necessity Medical necessity: Pt meets IP criteria per MD; los >2 mn for ongoing management of worsening respiratory status; pt has poor prognosis; admit to ICU for further monitoring & discussion of tx goals; hx recurrent aspiration, pneumonia, CHF, DEMARCUS, pulmonary htn, schizophrenia, wc bound; per progress note & order 05/15/17
--- NOTE | 2017-05-15 16:36 | ASDISCHSUM ---
Discharge Information Plan Status:Hospice-Home Medically Cleared to Leave: Discharge Date: D/C Disposition: ADT D/C Disposition:Hospice Facility Projected Discharge Date:05/15/2017 11:00 AM Transportation at D/C:ALS/BLS Discharge Delay Reason: Follow-Up Date:05/15/2017 11:00 AM Discharge Slot: Final Diagnosis:Asp PNA, Pulm HTN, HTN, CKD, Chronic pain, LE Wounds Placement Information Referral Type:Inpatient Hospice Referral ID:[id number] Provider Name: Address 1: Phone Number: Address 2: Fax Number: City: Selection Factors: State: Referral Type:*Hospice Referral ID:[id number] Provider Name:[facility] Address 1:[address] Phone Number: Address 2: Fax Number: [facility]:[place] Selection Factors: State:[place] Referral Type:*Group Home/SNF Referral ID:[id number] Provider Name: Address 1: Phone Number: Address 2: Fax Number: City: Selection Factors: State: Patient Contact Information Contact Name:ANTONI Relationship:Other Address:[address] City:[place] Alternate Phone: State/Zip Code:[place] [address] Email: Financial Information Financial Class:Medicare Primary Plan Desc:MEDICARE INPATIENT Primary Plan Number:[id number] Secondary Plan Desc:MED[place] Secondary Plan Number:[id number] Assessment Information [facility] CM Progress Note CM Note CM Note Notes: 66yr old male admitted from [place] for SOB, Asp PNA, Hypoxia, Pulm HTN, HTN, CKD, Chronic pain, LE Necrotizing wounds, DEMARCUS. Patient has a hx of Schizophrenia and is a smoker. Patient has been in discussion with Palliative Care re: In-pt [facility] at [facility]. Referral sent to [facility]. Date Signed: 05/14/2017 01:41 PM Electronically Signed By:Gabby Magana LCSW [facility] CM Progress Note CM Note CM Note Notes: Jennifer Painter assessed pt who still qualifies for [facility], pt and brother Greyson still interested in d/c to [facility]. Today pt was alert and oriented and made brother Greyson Cobos MDPOA. Jennifer Painter scheduled a stretcher for 16:30, PCS completed. Guille Ring updated and sent d/c clinicals. Date Signed: 05/15/2017 04:35 PM Electronically Signed By:CHATO Atkins Intervention Information Intervention Type:DUKE-Signed Date of Service:05/14/2017 10:21 AM Patient Type:Observation Staff Member:Shaila Johnson Hours: Discipline: Severity: Comment:
== END 2017-05-15 17:00 | disposition hospice, home (50) | DRG 177 ==
LOC: EDUNIT# → OBSVTOIN 03:34 → F2W 04:40 → F2N 11:52 → F3N 21:24
PROVIDERS: ADMIT Student in an Organized Health Care Education/Training Program; ATTEND Internal Medicine
DX: J69.0 Pneumonitis due to inhalation of food and vomit (principal); I50.33 Acute on chronic diastolic (congestive) heart failure; J96.21 Acute and chronic respiratory failure with hypoxia; L03.115 Cellulitis of right lower limb; L03.116 Cellulitis of left lower limb; I96 Gangrene, not elsewhere classified; L89.153 Pressure ulcer of sacral region, stage 3; L89.613 Pressure ulcer of right heel, stage 3; I27.20 Pulmonary hypertension, unspecified; N18.3 Chronic kidney disease, stage 3 (moderate); F20.9 Schizophrenia, unspecified; I12.9 Hypertensive chronic kidney disease with stage 1 through stage 4 chronic kidney disease, or unspecified chronic kidney disease; K21.9 Gastro-esophageal reflux disease without esophagitis; G47.33 Obstructive sleep apnea (adult) (pediatric); F17.200 Nicotine dependence, unspecified, uncomplicated; Z51.5 Encounter for palliative care; Z66 Do not resuscitate; Z99.3 Dependence on wheelchair
CPT/HCPCS: 92610-GN; 96374; A9540; G8996-GN-CH; G8997-GN-CH; G8998-GN-CH; J1644; J1940; J2060; J2270; J2543; J3370